=== PATIENT | male | born 1995 | race Hispanic/Latino ===

== ENCOUNTER 2018-11-13 09:36 | Emergency (ER) | payer OTHER ==
--- NOTE | 2018-11-13 10:29 | ER ---
Nurse's Notes [facility] Name: Hermelindo Driscoll Age: 23 yrs Sex: Male : 1995 Arrival Date: 11/13/2018 Time: 09:39 Bed 13 Private MD: Diagnosis: Abnormal results of liver function studies Presentation: 11/13 09:40 Presenting complaint: Mother states: "he just had some blood work this morning and they aa5 called us and said to come to the ER because there was something wrong with his pancreas". Pt denies any symptoms. 09:40 Transition of care: patient was not received from another setting of care. Onset of aa5 symptoms was November 13, 2018. Risk Assessment: Do you want to hurt yourself or someone else? Patient reports no desire to harm self or others. Initial Sepsis Screen: Does the patient meet any 2 criteria? No. Patient's initial sepsis screen is negative. Does the patient have a suspected source of infection? No. Patient's initial sepsis screen is negative. Care prior to arrival: None. 09:40 Method Of Arrival: Ambulatory aa5 09:40 Acuity: CHELY 3 aa5 09:45 Note Elevated results are: AST 246 and ALT 316, Hemoglobin A1C 11.2 (PA was notified aa5 and lab results were reviewed by PA). Historical: - Allergies: 09:42 No Known Allergies; aa5 - PMHx: 09:42 Diabetes - IDDM; aa5 - PSHx: 09:42 None; aa5 - Immunization history:: Flu vaccine is up to date. - Social history:: Smoking status: Patient/guardian denies using tobacco. - Ebola Screening: : No symptoms or risks identified at this time. Screenin:40 Abuse screen: Denies threats or abuse. Nutritional screening: No deficits noted. aa5 Tuberculosis screening: No symptoms or risk factors identified. Fall Risk None identified. Assessment: 09:40 General: Appears comfortable, Behavior is calm, cooperative. Pain: Denies pain. Neuro: aa5 Level of Consciousness is awake, alert, obeys commands, Oriented to person, place, time, situation. Cardiovascular: Heart tones S1 S2 present Rhythm is regular. Respiratory: Airway is patent Respiratory effort is even, unlabored, Respiratory pattern is regular, symmetrical. GI: Abdomen is flat, non-distended, Bowel sounds present X 4 quads. Abd is soft and non tender X 4 quads. Patient currently denies diarrhea, nausea, vomiting. : No signs and/or symptoms were reported regarding the genitourinary system. EENT: No signs and/or symptoms were reported regarding the EENT system. Derm: Skin is pink, warm \\T\\ dry. Musculoskeletal: Range of motion: intact in all extremities. Vital Signs: 09:42 BP 121 / 74; Pulse 69; Resp 18 S; Temp 98.8(O); Pulse Ox 100% on R/A; Weight 83.01 kg aa5 (R); Height 6 ft. 2 in. (187.96 cm) (R); Pain 0/10; 09:42 Body Mass Index 23.50 (83.01 kg, 187.96 cm) aa5 ED Course: 09:39 Patient arrived in ED. mr 09:40 Arm band placed on Patient placed in an exam room, on a stretcher. aa5 09:40 Patient has correct armband on for positive identification. Bed in low position. Call aa5 light in reach. Side rails up X 1. Adult w/ patient. 09:41 Pankaj Mattson PA is PHCP. cp 09:41 Charly Gil MD is Attending Physician. cp 09:45 Jacqui Gates, RN is Primary Nurse. aa5 09:46 Triage completed. aa5 10:20 No provider procedures requiring assistance completed. Patient did not have IV access aa5 during this emergency room visit. Administered Medications: No medications were administered Outcome: 10:28 Discharge ordered by . cp 10:28 Medical screen evaluation completed per provider. aa5 10:28 Condition: good 10:28 Discharge instructions given to patient, Instructed on discharge instructions, follow up and referral plans. Pt also educated about diabetes and glucose control and monitoring. 10:30 Patient left the ED. aa5 Signatures: Xiomara Franklin mr Jacqui Gates, RN RN aa5 Pankaj Mattson PA PA cp
--- NOTE | 2018-11-13 10:29 | EDPHYS ---
Physician Documentation [facility] Name: Hermelindo Driscoll Age: 23 yrs Sex: Male : 1995 Arrival Date: 11/13/2018 Time: 09:39 Bed 13 Private MD: ED Physician Charly Gil HPI: 11/13 09:59 This 23 yrs old Male presents to ER via Ambulatory with complaints of Abnormal cp Lab Results. 10:00 elevated liver enzymes. Onset: The symptoms/episode began/occurred at an unknown time. cp Patient had routine blood work drawn this morning and was told by lab to be seen in Ed for elevated liver enzymes. No complaints expressed by patient. Historical: - Allergies: 09:42 No Known Allergies; aa5 - PMHx: 09:42 Diabetes - IDDM; aa5 - PSHx: 09:42 None; aa5 - Immunization history:: Flu vaccine is up to date. - Social history:: Smoking status: Patient/guardian denies using tobacco. - Ebola Screening: : No symptoms or risks identified at this time. ROS: 10:01 All other systems are negative. cp Exam: 10:01 Head/Face: Normocephalic, atraumatic. cp 10:01 Constitutional: The patient appears in no acute distress, alert, awake, non-toxic, well developed, well nourished. 10:01 Eyes: Periorbital structures: appear normal, Conjunctiva: normal, no exudate, no injection, Sclera: no appreciated abnormality, Lids and lashes: appear normal, bilaterally. 10:01 ENT: External ear(s): are unremarkable, Nose: is normal, Mouth: is normal, Posterior pharynx: Airway: no evidence of obstruction, patent. 10:01 Chest/axilla: Inspection: normal, Palpation: is normal, no crepitus, no tenderness. 10:01 Cardiovascular: Rate: normal, Rhythm: regular. 10:01 Respiratory: the patient does not display signs of respiratory distress, Respirations: normal. 10:01 Abdomen/GI: Inspection: abdomen appears normal. Vital Signs: 09:42 BP 121 / 74; Pulse 69; Resp 18 S; Temp 98.8(O); Pulse Ox 100% on R/A; Weight 83.01 kg aa5 (R); Height 6 ft. 2 in. (187.96 cm) (R); Pain 0/10; 09:42 Body Mass Index 23.50 (83.01 kg, 187.96 cm) aa5 MDM: 09:53 Patient medically screened. cp 10:25 Differential Diagnosis hepatitis, cholecystitis. cp 10:27 Data reviewed: vital signs, nurses notes, lab results that were drawn today, I have cp discussed the patient's presentation/case with the attending Emergency Department Physician; and as a result, I will med screen patient. Administered Medications: No medications were administered Disposition: 10:35 Chart complete. cp 11:27 Co-signature as Attending Physician, Charly Gil MD I agree with the assessment and kdr plan of care. Disposition: 11/13/18 10:28 Discharged to Home as Medical Screen. Impression: Abnormal results of liver function studies. - Condition is Stable. - Medication Reconciliation Form, Thank You Letter, Antibiotic Education, Prescription Opioid Use form. - Follow up: Private Physician; When: Upon discharge from the Emergency Department; Reason: Recheck today's complaints. - Problem is new. - Symptoms are unchanged. Signatures: Charly Gil MD MD kdr Jacqui Gates RN RN aa5 Pankaj Mattson PA PA cp Corrections: (The following items were deleted from the chart) 10:30 10:28 11/13/2018 10:28 Discharged to Home as Medical Screen. Impression: Abnormal aa5 results of liver function studies. Condition is Stable. Forms are Medication Reconciliation Form, Thank You Letter, Antibiotic Education, Prescription Opioid Use. Follow up: Private Physician; When: Upon discharge from the Emergency Department; Reason: Recheck today's complaints. Problem is new. Symptoms are unchanged. cp
== END 2018-11-13 10:30 | disposition home or self-care (01) ==
LOC: ER 09:36
DX: R94.5 Abnormal results of liver function studies (principal)
CPT/HCPCS: 99281

== ENCOUNTER 2019-02-16 17:38 | Emergency (ER) | payer OTHER ==
[2019-02-16] MEDS ORDERED: D50W 25 GM/50 ML SYRINGE IV ONE ×2 (17:42→17:44)
[2019-02-16 18:05] LABS: Absolute Lymphocytes (CBC) 1.5 K/uL (0.7-4.9); Basophils % 0.4 % (0-1.3); Hematocrit 50.4 % (39.6-49.0); Lymphocytes % 13.2 % (15.3-44.8); MPV 9.2 fL (7.6-11.3); RBC Red Blood Cell Count 6.01 M/uL (4.33-5.43)
[2019-02-16] MEDS ORDERED: ONDANSETRON 4 MG/2 ML VIAL ONE (18:07)
[2019-02-16 18:31] LABS: ALT/SGPT 45 U/L (12-78); AST/SGOT 30 U/L (15-37); Albumin 4.3 g/dL (3.4-5.0); Alkaline Phosphatase 85 U/L (45-117); BUN Blood Urea Nitrogen 12 mg/dL (7-18); Bicarbonate 28 mmol/L (21-32); Bilirubin Total 0.4 mg/dL (0.2-1.0); Protein, Total 8.1 g/dL (6.4-8.2); Sodium Level 142 mmol/L (136-145)
[2019-02-16 18:33] LABS: Glucose Level 33 mg/dL (74-106); Potassium 2.8 mmol/L (3.5-5.1)
[2019-02-16 19:23] LABS: Urine Blood NEGATIVE (NEG); Urine Glucose TRACE (NEG); Urine Protein NEGATIVE (NEG)
--- NOTE | 2019-02-16 20:12 | ER ---
Nurse's Notes [facility] Name: Hermelindo Driscoll Age: 23 yrs Sex: Male : 1995 Arrival Date: 02/16/2019 Time: 17:39 Bed 4 Private MD: Diagnosis: Hypoglycemia, unspecified;Adverse effect of insulin and oral hypoglycemic [antidiabetic] drugs Presentation: 02/16 17:39 Presenting complaint: Family stated "I think his BS might be low.". Transition of care: sv patient was not received from another setting of care. Onset of symptoms was February 16, 2019. Risk Assessment: Do you want to hurt yourself or someone else? Patient reports no desire to harm self or others. Care prior to arrival: None. 17:39 Method Of Arrival: Wheelchair sv 17:39 Acuity: CHELY 1 sv 17:46 Initial Sepsis Screen: Does the patient meet any 2 criteria? No. Patient's initial hj sepsis screen is negative. Does the patient have a suspected source of infection? No. Patient's initial sepsis screen is negative. Triage Assessment: 17:39 General: Appears distressed, Behavior is unresponsive. Neuro: Level of Consciousness is sv unresponsive. Respiratory: Respiratory effort is unlabored, shallow. GI: vomitus noted on front shirt. 17:46 General: Appears in no apparent distress. uncomfortable, Behavior is appropriate for hj age, unresponsive. Pain: Denies pain. Historical: - Allergies: 20:12 No Known Allergies; lp1 - Home Meds: 20:12 Levemir 43 units subcutaneous in the morning [Active]; Levemir 5 units subcutaneous lp1 nightly [Active]; - PMHx: 17:46 Diabetes - IDDM; sv - Immunization history:: Adult Immunizations up to date. - Social history:: Smoking status: Patient/guardian denies using tobacco, Patient/guardian denies using alcohol. - Ebola Screening: : Patient negative for fever greater than or equal to 101.5 degrees Fahrenheit, and additional compatible Ebola Virus Disease symptoms Patient denies exposure to infectious person Patient denies travel to an Ebola-affected area in the 21 days before illness onset. Screenin:46 Abuse screen: Denies threats or abuse. Denies injuries from another. Nutritional hj screening: No deficits noted. Tuberculosis screening: No symptoms or risk factors identified. Fall Risk None identified. Assessment: 17:46 General: Appears uncomfortable, semi responsive, drooling. Behavior is unresponsive. hj 17:46 Pain: Denies pain. Neuro: Level of Consciousness is unresponsive. Cardiovascular: hj Capillary refill < 3 seconds Patient's skin is warm and dry. Respiratory: Airway is patent Respiratory effort is even, unlabored, Respiratory pattern is regular, symmetrical. GI: No signs and/or symptoms were reported involving the gastrointestinal system. : No signs and/or symptoms were reported regarding the genitourinary system. EENT: No signs and/or symptoms were reported regarding the EENT system. Derm: No signs and/or symptoms reported regarding the dermatologic system. Musculoskeletal: No signs and/or symptoms reported regarding the musculoskeletal system. 17:46 Reassessment: pt started to seize; MD in room with orders;. hj 18:00 Reassessment: after amp of D50, pt becomes responsive and become more awake;. hj 18:00 Reassessment: Patient and/or family updated on plan of care and expected duration. Pain hj level reassessed. Patient is alert, oriented x 3, equal unlabored respirations, skin warm/dry/pink. provide with tray and 2 cups of orange juice;. 18:25 Reassessment: Patient and/or family updated on plan of care and expected duration. Pain hj level reassessed. Patient is alert, oriented x 3, equal unlabored respirations, skin warm/dry/pink. pt is still eating with family; Patient states feeling better. Patient states symptoms have improved. 20:11 Reassessment: Patient is alert, oriented x 3, equal unlabored respirations, skin lp1 warm/dry/pink. Patient denies pain at this time. Patient states feeling better. Patient states symptoms have improved. Reassessment: Family at bedside. Neuro: Gait is steady. 20:44 Reassessment: Patient and/or family updated on plan of care and expected duration. Pain ea level reassessed. Patient is alert, oriented x 3, equal unlabored respirations, skin warm/dry/pink. Discharge instruction, no s/s of pain or discomfort noted at this time. Pt left ED ambulatory without assistance, pt tolerating well. Pt left with family Patient states feeling better. Vital Signs: 17:47 BP 126 / 74; Pulse 108; Resp 18; Temp 96.9(TE); Pulse Ox 100% on R/A; Weight 82.55 kg; hj Height 6 ft. 2 in. (187.96 cm); Pain 0/10; 18:25 BP 130 / 87; Pulse 82; Resp 18; Pulse Ox 100% on R/A; hj 18:34 BP 127 / 75; Pulse 71; Resp 18; Pulse Ox 100% on R/A; hj 20:23 BP 120 / 70; lp1 17:47 Body Mass Index 23.37 (82.55 kg, 187.96 cm) ED Course: 17:39 Patient arrived in ED. as 17:45 Initial lab(s) drawn, by pr, sent to lab. Inserted saline lock: 18 gauge in left hj forearm, using aseptic technique. Blood collected. 17:45 Inserted saline lock: 18 gauge in right forearm, using aseptic technique. Flushed right sv forearm with 5 ml normal saline. 17:46 Triage completed. sv 17:46 Arm band placed on left wrist. hj 17:47 Lars Noel MD is Attending Physician. ps1 17:48 Patient has correct armband on for positive identification. Bed in low position. Call light in reach. Side rails up X 1. Adult w/ patient. 17:52 Elvin Hoskins, RN is Primary Nurse. hj 17:57 CMP Sent. hj 17:57 CBC with Diff Sent. hj 20:11 No provider procedures requiring assistance completed. lp1 20:46 IV discontinued, intact, bleeding controlled, No redness/swelling at site. Pressure ea dressing applied. Administered Medications: 17:40 Drug: D50W 50 ml Route: IVP; Site: left forearm; rv 17:48 Follow up: Response: No adverse reaction; Blood sugar is elevated hj 18:09 Drug: D50W 25 ml Route: IVP; Site: left forearm; hj 18:09 Follow up: Response: No adverse reaction hj 18:10 Not Given ( changed order;): D50W 50 ml IVP once; (1 amp) hj 18:10 Drug: Zofran 4 mg Route: IVP; Site: left forearm; hj 18:10 Follow up: Response: No adverse reaction; Nausea is decreased Point of Care Testing: Blood Glucose: 17:45 Blood Glucose: 33 mg/dL; hj 18:15 Blood Glucose: 89 mg/dL; hj 18:24 Blood Glucose: 103 mg/dL; hj 20:10 Blood Glucose: 190 mg/dL; mw2 Ranges: Outcome: 20:12 Discharge ordered by . ps1 20:46 Discharged to home ambulatory, with family. ea 20:46 Condition: stable 20:46 Discharge instructions given to patient, Instructed on discharge instructions, follow up and referral plans. 20:48 Patient left the ED. ea Signatures: Ani Mckee RN RN Sandra Coley Laura, RN RN lp1 Elvin Hoskins RN RN hj Antunez, Elena RN Lars Gooden ea, MD MD ps1 Abisai Davis mw2 Abdoul Boone, RN RN rv Corrections: (The following items were deleted from the chart) 17:57 17:41 D50W 50 ml IVP in left forearm [facility] 17:57 17:53 Response: No adverse reaction [facility]
--- NOTE | 2019-02-16 20:13 | EDPHYS ---
Physician Documentation [facility] Name: Hermelindo Driscoll Age: 23 yrs Sex: Male : 1995 Arrival Date: 02/16/2019 Time: 17:39 Bed 4 Private MD: ED Physician Lars Noel HPI: 02/16 17:53 This 23 yrs old Male presents to ER via Wheelchair with complaints of Low ps1 Blood Sugar. 17:53 Pt is IDDM and took insulin prior to eating. Patient presented unresponsive to triage ps1 and was given D50 immediately. Pt became alert. Did not remember event. Episode of vomiting [employer]. Clonic activity for 1 minute prior to glucose administration. Stopped after. . Historical: - Allergies: 20:12 No Known Allergies; lp1 - Home Meds: 20:12 Levemir 43 units subcutaneous in the morning [Active]; Levemir 5 units subcutaneous lp1 nightly [Active]; - PMHx: 17:46 Diabetes - IDDM; sv - Immunization history:: Adult Immunizations up to date. - Social history:: Smoking status: Patient/guardian denies using tobacco, Patient/guardian denies using alcohol. - Ebola Screening: : Patient negative for fever greater than or equal to 101.5 degrees Fahrenheit, and additional compatible Ebola Virus Disease symptoms Patient denies exposure to infectious person Patient denies travel to an Ebola-affected area in the 21 days before illness onset. ROS: 17:53 Unable to obtain ROS due to obtunded state. ps1 Exam: 17:53 Head/Face: Normocephalic, atraumatic. Eyes: Pupils equal round and reactive to light, ps1 extra-ocular motions intact. Lids and lashes normal. Conjunctiva and sclera are non-icteric and not injected. Chest/axilla: Normal chest wall appearance and motion. Nontender with no deformity. No lesions are appreciated. Cardiovascular: Regular rate and rhythm. No gallops, murmurs, or rubs. Normal PMI, no JVD. No pulse deficits. Respiratory: Lungs have equal breath sounds bilaterally, clear to auscultation and percussion. No rales, rhonchi or wheezes noted. No increased work of breathing, no retractions or nasal flaring. Abdomen/GI: Soft, non-tender, with normal bowel sounds. No distension or tympany. No guarding or rebound. No evidence of tenderness throughout. Skin: Warm, dry with normal turgor. Normal color with no rashes, no lesions, and no evidence of cellulitis. MS/ Extremity: Pulses equal, no cyanosis. Neurovascular intact. Full, normal range of motion. 17:53 Constitutional: The patient appears listless. 17:53 Neuro: Orientation: to Not oriented to person, place, time, situation, improved after D50. Alert and oriented.. Vital Signs: 17:47 BP 126 / 74; Pulse 108; Resp 18; Temp 96.9(TE); Pulse Ox 100% on R/A; Weight 82.55 kg; hj Height 6 ft. 2 in. (187.96 cm); Pain 0/10; 18:25 BP 130 / 87; Pulse 82; Resp 18; Pulse Ox 100% on R/A; hj 18:34 BP 127 / 75; Pulse 71; Resp 18; Pulse Ox 100% on R/A; hj 20:23 BP 120 / 70; lp1 17:47 Body Mass Index 23.37 (82.55 kg, 187.96 cm) hj MDM: 17:58 Patient medically screened. ps1 20:10 Data reviewed: vital signs, nurses notes, and as a result, I will discharge patient. ps1 Counseling: I had a detailed discussion with the patient and/or guardian regarding: the historical points, exam findings, and any diagnostic results supporting the discharge/admit diagnosis, lab results, the need for outpatient follow up, for definitive care. Counseling: I had a detailed discussion with the patient and/or guardian regarding: to return to the emergency department if symptoms worsen or persist or if there are any questions or concerns that arise at home. Response to treatment: the patient's symptoms have markedly improved after treatment, the patient's condition has returned to base line. 02/16 17:46 Order name: glucometer results - FOR PT WITH NO ID; Complete Time: 17:52 sv 02/16 17:53 Order name: CBC with Diff; Complete Time: 18:50 ps1 02/16 17:53 Order name: CMP; Complete Time: 18:50 ps1 02/16 18:07 Order name: Glucose, Ancillary Testing; Complete Time: 18:50 EDMS 02/16 18:25 Order name: Glucose, Ancillary Testing; Complete Time: 18:50 EDVA 02/16 19:02 Order name: Urine Dipstick--Ancillary (enter results); Complete Time: 20:03 ag4 02/16 17:44 Order name: Diet Regular; Complete Time: 17:45 rv 02/16 17:53 Order name: Urine Dipstick-Ancillary (obtain specimen); Complete Time: 18:53 ps1 Administered Medications: 17:40 Drug: D50W 50 ml Route: IVP; Site: left forearm; rv 17:48 Follow up: Response: No adverse reaction; Blood sugar is elevated hj 18:09 Drug: D50W 25 ml Route: IVP; Site: left forearm; hj 18:09 Follow up: Response: No adverse reaction hj 18:10 Not Given ( changed order;): D50W 50 ml IVP once; (1 amp) hj 18:10 Drug: Zofran 4 mg Route: IVP; Site: left forearm; hj 18:10 Follow up: Response: No adverse reaction; Nausea is decreased Point of Care Testing: Blood Glucose: 17:45 Blood Glucose: 33 mg/dL; hj 18:15 Blood Glucose: 89 mg/dL; hj 18:24 Blood Glucose: 103 mg/dL; hj 20:10 Blood Glucose: 190 mg/dL; mw2 Ranges: Critical Glucose Levels:Adult <50 mg/dl or >400 mg/dl <40 mg/dl or >180 mg/dl Disposition: 20:12 Chart complete. ps1 Disposition: 02/16/19 20:12 Discharged to Home. Impression: Hypoglycemia, unspecified, Adverse effect of insulin and oral hypoglycemic [antidiabetic] drugs. - Condition is Stable. - Discharge Instructions: Hypoglycemia. - Medication Reconciliation Form, Thank You Letter, Antibiotic Education, Prescription Opioid Use form. - Follow up: Private Physician; When: 48 Hours; Reason: Further diagnostic work-up, Continuance of care, Re-evaluation by your physician. Follow up: Emergency Department; When: As needed; Reason: Worsening of condition. - Problem is new. - Symptoms are resolved. Signatures: Dispatcher [employer] [facility] Ani Mckee RN RN sv Pena, Laura, RN RN lp1 Elvin Hoskins RN RN hj Selena Wilson RN RN ea Singer, Phillip, MD MD ps1 Paolo, Abdoul, RN RN rv Corrections: (The following items were deleted from the chart) 20:48 20:12 02/16/2019 20:12 Discharged to Home. Impression: Hypoglycemia, unspecified; ea Adverse effect of insulin and oral hypoglycemic [antidiabetic] drugs. Condition is Stable. Forms are Medication Reconciliation Form, Thank You Letter, Antibiotic Education, Prescription Opioid Use. Follow up: Private Physician; When: 48 Hours; Reason: Further diagnostic work-up, Continuance of care, Re-evaluation by your physician. Follow up: Emergency Department; When: As needed; Reason: Worsening of condition. Problem is new. Symptoms are resolved. ps1
== END 2019-02-16 20:48 | disposition home or self-care (01) ==
LOC: ER 17:38
DX: E11.649 Type 2 diabetes mellitus with hypoglycemia without coma (principal); Z79.4 Long term (current) use of insulin
CPT/HCPCS: 85025; 36415; 82962 ×4; 81003; 80053; 96375; 96374; 99291; 99292; J2405

== ENCOUNTER 2020-02-03 10:43 | Inpatient (IN) | payer OTHER ==
[2020-02-03 12:00] LABS: Absolute Lymphocytes (CBC) 2.1 K/uL (0.7-4.9); Basophils % 0.6 % (0-1.3); Hematocrit 49.1 % (39.6-49.0); Lymphocytes % 27.7 % (15.3-44.8); MPV 10.4 fL (7.6-11.3); RBC Red Blood Cell Count 5.93 M/uL (4.33-5.43)
[2020-02-03] MEDS ORDERED: MORPHINE 2 MG/ML SYR ONE (12:25)
[2020-02-03] MEDS ORDERED: ONDANSETRON 4 MG/2 ML VIAL ONE (12:25)
[2020-02-03 12:28] LABS: ALT/SGPT 36 U/L (12-78); AST/SGOT 20 U/L (15-37); Albumin 4.3 g/dL (3.4-5.0); Alkaline Phosphatase 93 U/L (45-117); BUN Blood Urea Nitrogen 17 mg/dL (7-18); Bicarbonate 18 mmol/L (21-32); Bilirubin Direct 0.2 mg/dL (0-0.2); Bilirubin Total 0.7 mg/dL (0.2-1.0); Glucose Level 341 mg/dL (74-106); Magnesium 1.7 mg/dL (1.8-2.4); Potassium 3.6 mmol/L (3.5-5.1); Protein, Total 7.6 g/dL (6.4-8.2); Sodium Level 135 mmol/L (136-145); Troponin (Emerg Dept Use Only) < 0.02 ng/mL (0.0-0.045)
--- NOTE | 2020-02-03 12:37 | RAD REPORT ---
EXAM DESCRIPTION: RAD - Chest Single View - 02/03/2020 12:06 pm CLINICAL HISTORY: CHEST PAIN COMPARISON: None TECHNIQUE: AP portable chest image was obtained 02/03/2020 12:06 pm . FINDINGS: Lungs are clear. Heart and vasculature are normal. No measurable pleural effusion and no p neumothorax. No acute bony abnormality seen. No acute aortic findings suspected. IMPRESSION: No acute cardiopulmonary process.
--- NOTE | 2020-02-03 13:52 | ER ---
Nurse's Notes [facility] Name: Hermelindo Driscoll Age: 24 yrs Sex: Male : 1995 Arrival Date: 02/03/2020 Time: 10:44 Bed 14 Private MD: Diagnosis: Diabetes mellitus due to underlying condition with ketoacidosis Presentation: 02/02 11:06 Chief complaint: Patient states: midsternal chest pain started about an hour ago, feels iw like pressure, constant, no vomiting , was lying in the bed when it started , denies cough, SOB or fever. Coronavirus screen: At this time, the client does not indicate any symptoms associated with coronavirus-19. Ebola Screen: Patient negative for fever greater than or equal to 101.5 degrees Fahrenheit, and additional compatible Ebola Virus Disease symptoms Patient denies exposure to infectious person. Patient denies travel to an Ebola-affected area in the 21 days before illness onset. No symptoms or risks identified at this time. Initial Sepsis Screen: Does the patient meet any 2 criteria? No. Patient's initial sepsis screen is negative. Does the patient have a suspected source of infection? No. Patient's initial sepsis screen is negative. Risk Assessment: Do you want to hurt yourself or someone else? Patient reports no desire to harm self or others. Onset of symptoms was February 03, 2020. 11:06 Method Of Arrival: Wheelchair iw 11:06 Acuity: CHELY 3 iw Historical: - Allergies: 11:09 No Known Allergies; iw - Home Meds: 11:09 Toujeo SoloStar 300 unit/mL (1.5 mL) subcutaneous inpn [Active]; iw - PMHx: 11:09 Diabetes - IDDM; iw - PSHx: 11:09 None; iw - Social history:: Smoking status: . Screenin:50 Abuse screen: Denies threats or abuse. Denies injuries from another. Nutritional jr10 screening: No deficits noted. Tuberculosis screening: No symptoms or risk factors identified. Fall Risk IV access (20 points). Assessment: 11:50 General: Appears in no apparent distress. Behavior is anxious, restless. Pain: jr10 Complains of pain in chest Pain does not radiate. Pain began this morning. Neuro: No deficits noted. Level of Consciousness is awake, alert, obeys commands, Oriented to person, place, time, situation, Appropriate for age Speech is normal. Cardiovascular: Reports chest pain, shortness of breath, Denies diaphoresis, nausea, vomiting, Capillary refill < 3 seconds Pulses are all present. Edema is absent. Rhythm is. Respiratory: Respiratory effort is even, unlabored, Respiratory pattern is regular, symmetrical, Breath sounds are clear bilaterally. GI: No deficits noted. No signs and/or symptoms were reported involving the gastrointestinal system. : No deficits noted. No signs and/or symptoms were reported regarding the genitourinary system. EENT: No deficits noted. No signs and/or symptoms were reported regarding the EENT system. Derm: No deficits noted. No signs and/or symptoms reported regarding the dermatologic system. Musculoskeletal: No deficits noted. No signs and/or symptoms reported regarding the musculoskeletal system. 13:08 Reassessment: respiratory at bedside for ABG. jr10 18:30 Reassessment: Patient and/or family updated on plan of care and expected duration. Pain jr10 level reassessed. Patient is alert, oriented x 3, equal unlabored respirations, skin warm/dry/pink. Insulin drip d/c per verbal order Dr Gordon, will await new orders. 19:00 Reassessment: Assumed care of patient from ANNALISA Hernandez. vc 19:08 Reassessment: Patient appears in no apparent distress at this time. Patient and/or vc family updated on plan of care and expected duration. Pain level reassessed. 20:17 Reassessment: Patient appears in no apparent distress at this time. No changes from vc previously documented assessment. Attempted to call report to second floor, receiving nurse to call back. 20:57 Reassessment: Attempted to give report to second floor, will attempt again. vc 21:28 Reassessment: Attempted to call report to second floor, no one answered, will call back.vc 21:38 Reassessment: Patient appears in no apparent distress at this time. Patient and/or vc family updated on plan of care and expected duration. Pain level reassessed. Patient is alert, oriented x 3, equal unlabored respirations, skin warm/dry/pink. Vital Signs: 11:06 BP 126 / 89; Pulse 90; Resp 16; Temp 98.1; Pulse Ox 100% on R/A; Weight 72.57 kg; iw Height 6 ft. 1 in. (185.42 cm); Pain 9/10; 12:25 BP 107 / 49; Pulse 73; Resp 20; Pulse Ox 100% on R/A; Pain 3/10; jr10 13:30 BP 106 / 60; Pulse 73; Resp 18; Pulse Ox 98% on R/A; jr10 14:30 BP 104 / 58; Pulse 74; Resp 20; Pulse Ox 99% ; jr10 16:00 BP 98 / 46; Pulse 85; Resp 18; Pulse Ox 100% ; jr10 17:30 BP 99 / 61; Pulse 84; Resp 18; Pulse Ox 100% ; jr10 19:06 BP 94 / 56; Pulse 65; Resp 11; Pulse Ox 100% on R/A; vc 20:18 BP 91 / 65; Pulse 72; Resp 12; Pulse Ox 100% on R/A; vc 11:06 Body Mass Index 21.11 (72.57 kg, 185.42 cm) iw ED Course: 10:44 Patient arrived in ED. ds1 11:08 Triage completed. iw 11:09 Arm band placed on. iw 11:17 Nori Powell FNP-C is PHCP. kb 11:17 Charly Gil MD is Attending Physician. kb 11:27 Mary Franklin RN is Primary Nurse. jr10 11:49 Inserted saline lock: 20 gauge in right forearm, using aseptic technique. IV is patent, jr10 is intact, with good blood return, Flushed. 11:50 Patient has correct armband on for positive identification. Bed in low position. Call jr10 light in reach. Side rails up X2. shelter monitor on. Pulse ox on. NIBP on. 12:07 XRAY Chest (1 view) In Process Unspecified. EDMS 13:50 Aleksandr Gordon is Hospitalizing Provider. kb 18:35 No provider procedures requiring assistance completed. Patient maintains SpO2 jr10 saturation greater than 95% on room air. 21:37 Patient admitted, IV remains in place. vc Administered Medications: Discontinued: Insulin Drip - (Insulin Regular Human 100 units, NS 0.9% 100 ml) IV at calculated rate continuous; Standard concentration 1unit/ml; Dose for DKA is 0.1 units/kg/hr 12:03 Drug: morphine 2 mg Route: IVP; Site: right forearm; jr10 12:56 Follow up: Response: No adverse reaction; Pain is decreased jr10 12:20 Drug: Zofran (Ondansetron) 4 mg Route: IVP; Site: right forearm; jr10 12:56 Follow up: Response: No adverse reaction jr10 14:15 Drug: NS 0.9% 1000 ml Route: IV; Rate: 1000 ml; Site: right forearm; jr10 15:32 Follow up: Response: No adverse reaction; IV Status: Completed infusion jr10 14:15 Drug: NS 0.9% 1000 ml Route: IV; Rate: 1000 ml; Site: right forearm; jr10 16:13 Follow up: Response: No adverse reaction; IV Status: Completed infusion jr10 16:11 Drug: Insulin Drip - (Insulin Regular Human 100 units, NS 0.9% 100 ml) {Co-Signature: rosa centeno (Go Madrigal RN).} Route: IV; Rate: calculated rate; Site: right forearm; Outcome: 13:51 Decision to Hospitalize by Provider. kb 21:37 Admitted to Med/surg accompanied by tech, via wheelchair, room 222. vc 21:37 Condition: good 21:37 Instructed on the need for admit. 22:45 Patient left the ED. vc Signatures: Dispatcher [employer] Nori Ngo, IAP DISPLAYS ANALYST-C IAP DISPLAYS ANALYST-Stella Acosta ds1 Laura Diallo, RN ANNALISA iw Radha Sprague RN Mary Macdonald vc, RN ANNALISA jrAaron Madrigal RN em Corrections: (The following items were deleted from the chart) 11:08 11:06 Chief complaint: Patient states: midsternal chest pain started about an hour ago, iw feels like pressure, constant, no vomiting , was lying in the bed when it started iw 11:09 11:06 Pulse 90bpm; Resp 16bpm; Pulse Ox 100% RA; Temp 98.1F; 72.57 kg; Height 6 ft. 1 iw in.; BMI: 21.1; Pain 9/10; iw
--- NOTE | 2020-02-03 13:52 | EDPHYS ---
Physician Documentation [facility] Name: Hermelindo Driscoll Age: 24 yrs Sex: Male : 1995 Arrival Date: 02/03/2020 Time: 10:44 Bed 14 Private MD: ED Physician Charly Gil HPI: 02/02 14:16 This 24 yrs old Male presents to ER via Wheelchair with complaints of Chest kb Pain. 14:17 The patient or guardian reports chest pain that is located primarily in the substernal kb area. The pain radiates to both arms. Associated signs and symptoms: Pertinent positives: nausea, Pertinent negatives: abdominal pain, cough, diaphoresis, dizziness, headache, lower extremity pain, lower extremity swelling, lightheadedness, near syncope, palpitations, recent travel, shortness of breath, syncope, vomiting. The chest pain is described as a heaviness. Duration: The patient or guardian reports a single episode, that is still ongoing. Modifying factors: The symptoms are alleviated by nothing. the symptoms are aggravated by nothing. Severity of pain: At its worst the pain was moderate in the emergency department the pain is unchanged. The patient has not experienced similar symptoms in the past. The patient has not recently seen a physician. Historical: - Allergies: 11:09 No Known Allergies; iw - Home Meds: 11:09 Toujeo SoloStar 300 unit/mL (1.5 mL) subcutaneous inpn [Active]; iw - PMHx: 11:09 Diabetes - IDDM; iw - PSHx: 11:09 None; iw - Social history:: Smoking status: . ROS: 14:16 Constitutional: Negative for fever, chills, and weight loss, Respiratory: Negative for kb shortness of breath, cough, wheezing, and pleuritic chest pain, Abdomen/GI: Negative for abdominal pain, nausea, vomiting, diarrhea, and constipation, Back: Negative for injury and pain, MS/Extremity: Negative for injury and deformity, Skin: Negative for injury, rash, and discoloration, Neuro: Negative for headache, weakness, numbness, tingling, and seizure. 14:16 Cardiovascular: Positive for chest pain, Negative for edema, orthopnea, palpitations, paroxysmal nocturnal dyspnea. Exam: 11:36 Constitutional: This is a well developed, well nourished patient who is awake, alert, kb and in no acute distress. Head/Face: Normocephalic, atraumatic. Chest/axilla: Normal chest wall appearance and motion. Nontender with no deformity. No lesions are appreciated. Cardiovascular: Regular rate and rhythm with a normal S1 and S2. No gallops, murmurs, or rubs. Normal PMI, no JVD. No pulse deficits. Respiratory: Lungs have equal breath sounds bilaterally, clear to auscultation and percussion. No rales, rhonchi or wheezes noted. No increased work of breathing, no retractions or nasal flaring. Abdomen/GI: Soft, non-tender, with normal bowel sounds. No distension or tympany. No guarding or rebound. No evidence of tenderness throughout. Back: No spinal tenderness. No costovertebral tenderness. Full range of motion. Skin: Warm, dry with normal turgor. Normal color with no rashes, no lesions, and no evidence of cellulitis. MS/ Extremity: Pulses equal, no cyanosis. Neurovascular intact. Full, normal range of motion. Neuro: Awake and alert, GCS 15, oriented to person, place, time, and situation. Cranial nerves II-XII grossly intact. Motor strength 5/5 in all extremities. Sensory grossly intact. Cerebellar exam normal. Normal gait. 11:36 ECG was reviewed by the Attending Physician. Vital Signs: 11:06 BP 126 / 89; Pulse 90; Resp 16; Temp 98.1; Pulse Ox 100% on R/A; Weight 72.57 kg; iw Height 6 ft. 1 in. (185.42 cm); Pain 9/10; 12:25 BP 107 / 49; Pulse 73; Resp 20; Pulse Ox 100% on R/A; Pain 3/10; jr10 13:30 BP 106 / 60; Pulse 73; Resp 18; Pulse Ox 98% on R/A; jr10 14:30 BP 104 / 58; Pulse 74; Resp 20; Pulse Ox 99% ; jr10 16:00 BP 98 / 46; Pulse 85; Resp 18; Pulse Ox 100% ; jr10 17:30 BP 99 / 61; Pulse 84; Resp 18; Pulse Ox 100% ; jr10 19:06 BP 94 / 56; Pulse 65; Resp 11; Pulse Ox 100% on R/A; vc 20:18 BP 91 / 65; Pulse 72; Resp 12; Pulse Ox 100% on R/A; vc 11:06 Body Mass Index 21.11 (72.57 kg, 185.42 cm) iw MDM: 11:17 Patient medically screened. kb 13:49 Data reviewed: vital signs, nurses notes. Data interpreted: Pulse oximetry: on room air kb is 100 %. Interpretation: normal. Counseling: I had a detailed discussion with the patient and/or guardian regarding: the historical points, exam findings, and any diagnostic results supporting the discharge/admit diagnosis, lab results, radiology results, the need for further work-up and treatment in the hospital. Physician consultation: Aleksandr Gordon was contacted at 13:50, regarding admission, to the ICU, patient's condition, and will see patient in ED, shortly. 02/02 11:27 Order name: Basic Metabolic Panel; Complete Time: 12:45 kb 02/02 11:27 Order name: CBC with Diff; Complete Time: 12:05 kb 02/02 11:27 Order name: LFT's; Complete Time: 12:45 kb 02/02 11:27 Order name: Magnesium; Complete Time: 12:45 kb 02/02 11:27 Order name: Troponin (emerg Dept Use Only); Complete Time: 12:45 kb 02/02 11:35 Order name: Glucose, Ancillary Testing; Complete Time: 11:36 EDMS 02/02 11:27 Order name: XRAY Chest (1 view); Complete Time: 12:45 kb 02/02 12:46 Order name: ABG; Complete Time: 14:11 kb 02/02 12:46 Order name: Acetone, Serum; Complete Time: 21:52 kb 02/02 15:41 Order name: Glucose, Ancillary Testing; Complete Time: 15:54 EDMS 02/02 16:05 Order name: Basic Metabolic Panel; Complete Time: 21:52 EDMS 02/02 17:36 Order name: Glucose, Ancillary Testing; Complete Time: 21:52 EDMS 02/02 11:22 Order name: Blood Glucose Level; Complete Time: 11:27 kb 02/02 11:27 Order name: EKG; Complete Time: 11:29 kb 02/02 11:27 Order name: Cardiac monitoring; Complete Time: 11:27 kb 02/02 11:27 Order name: EKG - Nurse/Tech; Complete Time: 11:27 kb 02/02 11:27 Order name: IV Saline Lock; Complete Time: 11:48 kb 02/02 11:27 Order name: Labs collected and sent; Complete Time: 11:48 kb 02/02 11:27 Order name: O2 Per Protocol; Complete Time: 11:49 kb 02/02 11:27 Order name: O2 Sat Monitoring; Complete Time: 11:49 kb EC:36 Rate is 78 beats/min. Rhythm is regular. QRS [place] is Normal. UT interval is normal at kb 148 msec. QRS interval is normal at 90 msec. QT interval is normal at 406 msec. Administered Medications: Discontinued: Insulin Drip - (Insulin Regular Human 100 units, NS 0.9% 100 ml) IV at calculated rate continuous; Standard concentration 1unit/ml; Dose for DKA is 0.1 units/kg/hr 12:03 Drug: morphine 2 mg Route: IVP; Site: right forearm; jr10 12:56 Follow up: Response: No adverse reaction; Pain is decreased jr10 12:20 Drug: Zofran (Ondansetron) 4 mg Route: IVP; Site: right forearm; jr10 12:56 Follow up: Response: No adverse reaction jr10 14:15 Drug: NS 0.9% 1000 ml Route: IV; Rate: 1000 ml; Site: right forearm; jr10 15:32 Follow up: Response: No adverse reaction; IV Status: Completed infusion jr10 14:15 Drug: NS 0.9% 1000 ml Route: IV; Rate: 1000 ml; Site: right forearm; jr10 16:13 Follow up: Response: No adverse reaction; IV Status: Completed infusion jr10 16:11 Drug: Insulin Drip - (Insulin Regular Human 100 units, NS 0.9% 100 ml) {Co-Signature: jr10 jacobo (Go Madrigal RN).} Route: IV; Rate: calculated rate; Site: right forearm; Disposition: 02/03 09:00 Co-signature as Attending Physician, Charly Gil MD I agree with the assessment and kdr plan of care. Disposition: 02/03/20 13:51 Hospitalization ordered by Aleksandr Gordon for Inpatient Admission. Preliminary diagnosis is Diabetes mellitus due to underlying condition with ketoacidosis. - Bed requested for Telemetry/MedSurg (Inpatient). - Status is Inpatient Admission. vc - Condition is Stable. - Problem is new. - Symptoms are unchanged. Signatures: Dispatcher [employer] EDMT Nori Powell, COFFEE SOMMELIER-C COFFEE SOMMELIER-Ckb Jillian Cruz, RN RN Charly Mcdonough MD MD [facility] Laura Diallo RN RN iw Tosin Maximino, COFFEE SOMMELIER-C COFFEE SOMMELIER-Cla1 Radha Sprague RN RN Mary Franklin, RN RN jr10 Go Madrigal RN em Corrections: (The following items were deleted from the chart) 02/02 17:27 13:51 [facility]. Preliminary kl diagnosis is Diabetes mellitus due to underlying condition with ketoacidosis. Bed requested for Telemetry/MedSurg (Inpatient). Status is Inpatient Admission. Condition is Stable. Problem is new. Symptoms are unchanged. kb 17:33 17:27 02/03/2020 13:51 Hospitalization Ordered by [facility] for Inpatient kl Admission. Preliminary diagnosis is Diabetes mellitus due to underlying condition with ketoacidosis. Bed requested for Telemetry/MedSurg (Inpatient). Status is Inpatient Admission. Condition is Stable. Problem is new. Symptoms are unchanged. kl 18:40 17:33 02/03/2020 13:51 Hospitalization Ordered by [facility] for Inpatient kl Admission. Preliminary diagnosis is Diabetes mellitus due to underlying condition with ketoacidosis. Bed requested for Intensive Care Unit. Status is Inpatient Admission. Condition is Stable. Problem is new. Symptoms are unchanged. kl 22:45 18:40 02/03/2020 13:51 Hospitalization Ordered by [facility] for Inpatient vc Admission. Preliminary diagnosis is Diabetes mellitus due to underlying condition with ketoacidosis. Bed requested for Telemetry/MedSurg (Inpatient). Status is Inpatient Admission. Condition is Stable. Problem is new. Symptoms are unchanged. kl
[2020-02-03 14:06] LABS: Arterial Blood Carboxyhemoglob 1.2 % (0-1.5); Blood Gas Oxyhemoglobin 94.9 % (94-97); Blood O2 Saturation 96.9 % (92-98.5)
[2020-02-03] MEDS ORDERED: NA CHLORIDE 0.9% 2,000 ML ONE (14:23)
[2020-02-03] MEDS ORDERED: INSULIN -REGULAR HUMAN 100 UNIT in NA CHLORIDE 0.9% 100 ML IV SCH (15:00)
[2020-02-03] MEDS ORDERED: INSULIN -REGULAR HUMAN 50 UNIT/0.5 ML ML ONE (16:01)
--- NOTE | 2020-02-03 16:11 | P.HP ---
Certification for Inpatient Patient admitted to: Observation With expected LOS: <2 Midnights Practitioner: I am a practitioner with admitting privileges, knowledge of patient current condition, hospital course, and medical plan of care. Services: Services provided to patient in accordance with Admission requirements found in Title 42 Section 412.3 of the Code of Federal Regulations Patient History Date of Service: 02/03/20 Reason for admission: DKA History of Present Illness: 24-year-old gentleman with a history of type 1 diabetes presented to the emergency department with a complaint of chest pain of onset today. Chest pain had resolved by the time I saw him in the ED for examination. Initial troponin is negative. EKG did not show any ischemic changes. Patient found to have hyperglycemia with glucose level of 341. Blood chemistry showing mild metabolic acidosis with bicarb of 18 and a mild anion gap. Patient does not look sick and currently has no complain. He stated he misses insulin doses from yesterday. Patient started on IV hydration given a dose of IV insulin. I dont think he has full blown DKA. Will hospitalize for monitoring. Allergies No Known Allergies Allergy (Unverified 02/03/20 14:14) - Past Medical/Surgical History -: Diabetes mellitus type 1 -: None - Family History Family History: Reviewed- Non-Contributory - Social History Alcohol use: No CD- Drugs: No Place of Residence: Home Review of Systems Other: Except as documented, all other systems reviewed and negative. Physical Examination - Physical Exam General: Alert, In no apparent distress, Oriented x3 HEENT: Mucous membr. moist/pink, EOMI, Sclerae nonicteric Neck: Supple, JVD not distended Respiratory: Clear to auscultation bilaterally, Normal air movement Cardiovascular: No edema, Regular rate/rhythm, Normal S1 S2 Capillary refill: <2 Seconds Gastrointestinal: Normal bowel sounds, Soft and benign, Non-distended, No tenderness Musculoskeletal: No swelling, No erythema Integumentary: No rashes, No erythema Neurological: Normal strength at 5/5 x4 extr, Cranial nerves 3-12 intact - Studies Laboratory Data (last 24 hrs) 02/03/20 11:45: WBC 7.7, Hgb 16.6, Hct 49.1 H, Plt Count 141 L 02/03/20 11:45: Sodium 135 L, Potassium 3.6, BUN 17, Creatinine 1.08, Glucose 341 H, Magnesium 1.7 L, Total Bilirubin 0.7, AST 20, ALT 36, Alkaline Phosphatase 93 Assessment and Plan - Problems (Diagnosis) (1) Diabetes mellitus with hyperglycemia Current Visit: Yes Status: Acute - Plan Give a dose of IV insulin, recheck blood sugar. Hydrate with IV normal saline. Patient given 2 L bolus of normal saline in the ED. Will start aggressive IV hydration. Recheck BMP in 4 hours. Will discharge home once serum bicarb level remain stable or improve. Otherwise will admit for DKA if AG increase. - Advance Directives Does patient have a Living Will: No Does patient have a Durable POA for Healthcare: No
[2020-02-03 18:32] LABS: BUN Blood Urea Nitrogen 17 mg/dL (7-18); Bicarbonate 18 mmol/L (21-32); Glucose Level 234 mg/dL (74-106); Potassium 4.1 mmol/L (3.5-5.1); Sodium Level 139 mmol/L (136-145)
[2020-02-03] MEDS ORDERED: ONDANSETRON 4 MG/2 ML VIAL IV PRN (21:57)
[2020-02-03] MEDS ORDERED: D50W 25 GM/50 ML SYRINGE/VIAL IV PRN (21:57)
[2020-02-03] MEDS ORDERED: GLUCAGON 1 MG/VIAL IM PRN (21:57)
[2020-02-03 22:53] LABS: BUN Blood Urea Nitrogen 16 mg/dL (7-18); Bicarbonate 16 mmol/L (21-32); Glucose Level 271 mg/dL (74-106); Potassium 4.4 mmol/L (3.5-5.1); Sodium Level 138 mmol/L (136-145); Troponin I < 0.02 ng/mL (0.0-0.045)
[2020-02-03] MEDS: NA CHLORIDE 0.9% 1,000 ML IV SCH (22:55)
[2020-02-04] MEDS ORDERED: GLUCAGON 1 MG/VIAL IM PRN (01:48)
[2020-02-04] MEDS ORDERED: D50W 25 GM/50 ML SYRINGE/VIAL IV PRN (01:48)
[2020-02-04 03:43] LABS: Absolute Lymphocytes (CBC) 1.2 K/uL (0.7-4.9); Basophils % 0.1 % (0-1.3); Hematocrit 42.8 % (39.6-49.0); Lymphocytes % 7.1 % (15.3-44.8); MPV 10.7 fL (7.6-11.3); RBC Red Blood Cell Count 5.15 M/uL (4.33-5.43)
[2020-02-04 04:08] LABS: Magnesium 1.6 mg/dL (1.8-2.4); Phosphorus 4.4 mg/dL (2.5-4.9); Potassium 4.6 mmol/L (3.5-5.1)
[2020-02-04] MEDS: NA CHLORIDE 0.9% 1,000 ML IV SCH ×5 (04:43→15:54)
[2020-02-04 04:53] LABS: Blood Morphology Comment NOT SEEN (NOT SEEN); Platelet Estimate ADEQ
[2020-02-04] MEDS ORDERED: INSULIN -REGULAR HUMAN 50 UNIT/0.5 ML ML SQ SCH (07:30)
[2020-02-04] MEDS ORDERED: INSULIN -REGULAR HUMAN 100 UNIT in NA CHLORIDE 0.9% 100 ML IV SCH (08:00)
[2020-02-04] MEDS ORDERED: INSULIN GLARGINE 100 UNITS/ML SQ SCH ×2 (08:00→21:00)
[2020-02-04] MEDS ORDERED: MAGNESIUM SULFATE 1 gm IVPB 1 GM/100 ML BAG IV ONE (08:00)
[2020-02-04] MEDS: D5 0.45 NS 1,000 ML IV SCH ×2 (08:00→14:40)
--- NOTE | 2020-02-04 08:42 | EKG ---
Test Date: 2020-02-03 Test Time: 11:21:33 Subpoena Server: [employer] MEASUREMENT RESULTS: Intervals: Rate: 78 AL: 148 QRSD: 90 QT: 406 QTc: 462 Deweese: P: 66 AL: 148 QRS: 61 T: 60 INTERPRETIVE STATEMENTS: Normal sinus rhythm Possible Left atrial enlargement Borderline ECG No previous ECG available for comparison Electronically Signed On 02-04-20 08:38:34 CDT by Dio Giordano
[2020-02-04 09:25] LABS: Potassium 4.6 mmol/L (3.5-5.1)
[2020-02-04 12:55] LABS: Urine Appearance CLEAR; Urine Bilirubin NEGATIVE (NEG); Urine Blood NEGATIVE (NEG); Urine Color YELLOW; Urine Glucose 3+ (NEG); Urine Protein NEGATIVE (NEG); Urine Specific Gravity >=1.030 (1.005-1.030); Urine Urobilinogen 0.2 mg/dL (0.2-1.0); Urine pH 5.5 (5.0-7.0)
[2020-02-04 13:23] LABS: Urine Microscopic Reflex NO UMIC
[2020-02-04] MEDS ORDERED: INSULIN -REGULAR HUMAN 50 UNIT/0.5 ML ML SQ ONE ×2 (13:36→18:30)
[2020-02-04] MEDS: INSULIN -REGULAR HUMAN 50 UNIT/0.5 ML ML SQ SCH ×2 (16:30→20:37)
[2020-02-04 16:36] LABS: BUN Blood Urea Nitrogen 16 mg/dL (7-18); Bicarbonate 25 mmol/L (21-32); Glucose Level 114 mg/dL (74-106); Potassium 3.8 mmol/L (3.5-5.1); Sodium Level 142 mmol/L (136-145)
--- NOTE | 2020-02-04 16:56 | P.PN ---
Subjective Date of Service: 02/04/20 Chief Complaint: DKA Patient seen and tested positive for COVID 19. He also went into full-blown DKA last night. Insulin drip started this morning. DKA is currently resolved and patient transition to subcutaneous insulin. Noted leukocytosis and bandemia. Physical Examination - Vital Signs Temperature: 98.7 F Blood Pressure: 134/77 Pulse: 73 Respirations: 24 Pulse Ox (%): 87 - Physical Exam General: Alert, In no apparent distress HEENT: Mucous membr. moist/pink Neck: Supple, JVD not distended Respiratory: Clear to auscultation bilaterally, Normal air movement Cardiovascular: No edema, Regular rate/rhythm, Normal S1 S2 Gastrointestinal: Normal bowel sounds, Soft and benign, No tenderness Musculoskeletal: No swelling, No erythema Integumentary: No rashes Neurological: Other (Nonfocal) - Studies Laboratory Data (last 24 hrs) 02/04/20 03:03: Sodium 137, Potassium 4.6, BUN 17, Creatinine 1.12, Glucose 312 H, Phosphorus 4.4, Magnesium 1.6 L 02/04/20 03:03: WBC 16.6 H D, Hgb 14.5, Hct 42.8, Plt Count 141 L 02/04/20 03:03: Troponin I < 0.02 02/03/20 22:20: Sodium 138, Potassium 4.4, BUN 16, Creatinine 1.02, Glucose 271 H, Troponin I < 0.02 02/03/20 18:00: Sodium 139, Potassium 4.1, BUN 17, Creatinine 1.00, Glucose 234 H Assessment And Plan - Current Problems (Diagnosis) (1) Diabetes mellitus with hyperglycemia Current Visit: Yes Status: Acute (2) COVID-19 virus infection Current Visit: Yes Status: Acute (3) Sepsis Current Visit: Yes Status: Acute - Plan Patient admitted. IV Cefepime and vancomycin. Follow blood culture. UA no evidence of UTI. ADA diet Resume home insulin regimen. Insulin sliding scale.
[2020-02-04] MEDS ORDERED: VANCOMYCIN/NS 1 gm 1 GM/250 ML BAG IVPB SCH (17:00)
[2020-02-04] MEDS ORDERED: VANCOMYCIN 1.75 GM in NA CHLORIDE 0.9% 500 ML IVPB ONE (18:00)
[2020-02-04 18:14] VITALS: BMI 21.3
[2020-02-04] MEDS: CEFEPIME/SWI 1gm 10 ML IVP SCH (20:38)
[2020-02-04] MEDS ORDERED: CEFEPIME 1 GM/VIAL IV SCH (21:00)
[2020-02-04] MEDS ORDERED: INSULIN GLARGINE HUM REC ANLOG 20 UNIT SQ SCH (21:00)
[2020-02-04 23:24] VITALS: O2SAT 98
[2020-02-05] MEDS: NA CHLORIDE 0.9% 1,000 ML IV SCH (04:29)
[2020-02-05 05:21] LABS: Absolute Lymphocytes (CBC) 2.1 K/uL (0.7-4.9); Basophils % 0.4 % (0-1.3); Hematocrit 40.5 % (39.6-49.0); MPV 9.9 fL (7.6-11.3); RBC Red Blood Cell Count 4.89 M/uL (4.33-5.43)
[2020-02-05 05:31] LABS: BUN Blood Urea Nitrogen 15 mg/dL (7-18); Bicarbonate 28 mmol/L (21-32); Ferritin 111.5 ng/mL (26-388); Glucose Level 144 mg/dL (74-106); Magnesium 1.8 mg/dL (1.8-2.4); Potassium 3.4 mmol/L (3.5-5.1); Sodium Level 143 mmol/L (136-145)
[2020-02-05] MEDS ORDERED: VANCOMYCIN 1.25 GM in NA CHLORIDE 0.9% 250 ML IVPB SCH (06:00)
[2020-02-05] MEDS: INSULIN -REGULAR HUMAN 50 UNIT/0.5 ML ML SQ SCH (07:30)
[2020-02-05] MEDS ORDERED: MAGNESIUM SULFATE 1 gm IVPB 1 GM/100 ML BAG IV ONE (08:00)
[2020-02-05] MEDS ORDERED: POTASSIUM 25 MEQ EFFERV TAB PO ONE (08:00)
[2020-02-05] MEDS: CEFEPIME/SWI 1gm 10 ML IVP SCH (08:06)
[2020-02-05 08:35] VITALS: TEMP 98.7
[2020-02-05 10:41] VITALS: BP 109/75
--- NOTE | 2020-02-05 11:06 | P.DS ---
Admission Date: 02/04/20 Discharge Date: 02/05/20 Disposition: ROUTINE DISCHARGE Discharge Condition: FAIR Reason for Admission: DKA - Problems (1) DKA (diabetic ketoacidoses) Current Visit: Yes Status: Acute (2) COVID-19 virus infection Current Visit: Yes Status: Acute (3) Sepsis Current Visit: Yes Status: Acute Brief History of Present Illness: 24-year-old gentleman with a history of type 1 diabetes presented to the emergency department with a complaint of chest pain of onset today. Chest pain had resolved by the time I saw him in the ED for examination. Initial troponin is negative. EKG did not show any ischemic changes. Patient found to have hyperglycemia with glucose level of 341. Blood chemistry showing mild metabolic acidosis with bicarb of 18 and a mild anion gap. Patient did not look sick. He stated he misses insulin doses the day before admission. Patient started on IV hydration given a dose of SC insulin. He was hospitalized for monitoring. Hospital Course: Patient admitted to the medical floor and treated with subcutaneous insulin. He developed fever and tested positive for COVID 19. He also developed full-blown DKA. He was transferred to the ICU and DKA protocol initiated with insulin drip and aggressive IV hydration. DKA resolved within 24 hrs. His patient developed leukocytosis land met criteria for sepsis. Blood cultures yielded no growth. Sepsis probably related to COVID 19 infection. Leukocytosis resolved today. Patient currently has no complain. He denies shortness of breath. His SaO2 is 100% on room air. Patient is deemed clinically stable for discharge. He is prescribed his home dose long-acting insulin. Vital Signs/Physical Exam: Temp Pulse Resp BP Pulse Ox 98.7 F 82 14 109/75 99 02/05/20 08:00 02/05/20 10:00 02/05/20 10:00 02/05/20 10:00 02/05/20 10:00 General: Alert, In no apparent distress HEENT: Mucous membr. moist/pink Neck: Supple Respiratory: Clear to auscultation bilaterally, Normal air movement Cardiovascular: No edema, Regular rate/rhythm, Normal S1 S2 Capillary refill: <2 Seconds Gastrointestinal: Normal bowel sounds, Soft and benign, No tenderness Musculoskeletal: No swelling, No erythema Integumentary: No rashes Neurological: Normal strength at 5/5 x4 extr Laboratory Data at Discharge: WBC 6.0 K/uL (4.3-10.9) D 02/05/20 04:50 Hgb 13.9 g/dL (13.6-17.9) 02/05/20 04:50 Hct 40.5 % (39.6-49.0) 02/05/20 04:50 Plt Count 122 K/uL (152-406) L 02/05/20 04:50 Sodium 143 mmol/L (136-145) 02/05/20 04:50 Potassium 3.4 mmol/L (3.5-5.1) L 02/05/20 04:50 BUN 15 mg/dL (7-18) 02/05/20 04:50 Creatinine 0.82 mg/dL (0.55-1.3) 02/05/20 04:50 Glucose 144 mg/dL (74-106) H 02/05/20 04:50 Phosphorus 4.4 mg/dL (2.5-4.9) 02/04/20 03:03 Magnesium 1.8 mg/dL (1.8-2.4) 02/05/20 04:50 Total Bilirubin 0.7 mg/dL (0.2-1.0) 02/03/20 11:45 AST 20 U/L (15-37) 02/03/20 11:45 ALT 36 U/L (12-78) 02/03/20 11:45 Alkaline Phosphatase 93 U/L (45-117) 02/03/20 11:45 Troponin I < 0.02 ng/mL (0.0-0.045) 02/04/20 03:03 Home Medications: Cefdinir [Cefdinir*] 300 mg PO BID #14 cap 02/05/20 Insulin Glargine,Hum.rec.anlog [Toujeo Max Solostar] 20 unit SQ DAILY #10 ml 02/05/20 New Medications: Cefdinir [Cefdinir*] 300 mg PO BID #14 cap Insulin Glargine,Hum.rec.anlog [Toujeo Max Solostar] 20 unit SQ DAILY #10 ml Diet: ADA Time spent managing pt's care (in minutes): 33
== END 2020-02-05 12:00 | disposition home or self-care (01) | DRG 871 ==
LOC: ER 10:43 → ERHOLD 16:22 → 2ND 21:45 → 3RD-ICU 02-04 06:41 → OBSVTOIN 02-04 08:05
PROVIDERS: ADMIT Internal Medicine; ATTEND Internal Medicine
DX: A41.89 Other specified sepsis (principal); U07.1 COVID-19; E10.10 Type 1 diabetes mellitus with ketoacidosis without coma; D72.825 Bandemia; Z79.4 Long term (current) use of insulin; T38.3X6A Underdosing of insulin and oral hypoglycemic [antidiabetic] drugs, initial encounter; Z91.128 Patient's intentional underdosing of medication regimen for other reason
CPT/HCPCS: 36415; 71045; 80048; 80076; 81003; 82010; 82728; 82805; 82947; 83735; 84100; 84145; 84484; 85025; 86140; 87040; 93005; 94760; 96361; 96374; 96375; 99285; G0378; J0692; J1815; J2270; J2405; J3370; J3475; J7030; J7040; J7050; U0003

== ENCOUNTER 2020-09-04 20:14 | Observation (INO) | payer OTHER ==
[2020-09-04 21:01] LABS: Absolute Lymphocytes (CBC) 1.8 K/uL (0.7-4.9); Basophils % 0.8 % (0-1.3); Lymphocytes % 25.7 % (15.3-44.8); RBC Red Blood Cell Count 5.68 M/uL (4.33-5.43)
[2020-09-04 21:16] LABS: Urine Blood NEGATIVE (NEG); Urine Glucose NEGATIVE (NEG); Urine Protein NEGATIVE (NEG); Urine Specific Gravity 1.015 (1.005-1.030); Urine pH 5.5 (5.0-7.0)
[2020-09-04 21:18] LABS: ALT/SGPT 24 U/L (12-78); AST/SGOT 15 U/L (15-37); Alkaline Phosphatase 62 U/L (45-117); BUN Blood Urea Nitrogen 16 mg/dL (7-18); Bicarbonate 31 mmol/L (21-32); Bilirubin Direct 0.1 mg/dL (0-0.2); Bilirubin Total 0.3 mg/dL (0.2-1.0); Glucose Level 83 mg/dL (74-106); Protein, Total 7.8 g/dL (6.4-8.2); Sodium Level 144 mmol/L (136-145)
[2020-09-04 21:27] LABS: Barbiturates NEGATIVE (NEGATIVE); Benzodiazepines NEGATIVE (NEGATIVE); Cocaine NEGATIVE (NEGATIVE); METHAMPHETAM NEGATIVE (NEGATIVE); Methadone NEGATIVE (NEGATIVE); Opiates NEGATIVE (NEGATIVE); Phencyclidine NEGATIVE (NEGATIVE); THC Cannibis NEGATIVE (NEGATIVE)
--- NOTE | 2020-09-05 02:10 | ER ---
Nurse's Notes [facility] Name: Hermelindo Driscoll Age: 25 yrs Sex: Male : 1995 Arrival Date: 09/04/2020 Time: 20:19 Bed 6 Private MD: Diagnosis: Hypoglycemia, unspecified Presentation: 09/04 20:23 Chief complaint: EMS states: called out for low BGL, on scene it was 29, pt was semi em responsive, given D10 on scene, on arrival to hospital BGL 141, pt A\T\O x 4 on arrival, BGL 104 at the hospital. Coronavirus screen: Client denies travel out of the [place] in the last 14 days. Ebola Screen: Patient negative for fever greater than or equal to 101.5 degrees Fahrenheit, and additional compatible Ebola Virus Disease symptoms Patient denies exposure to infectious person. Patient denies travel to an Ebola-affected area in the 21 days before illness onset. No symptoms or risks identified at this time. Initial Sepsis Screen: Does the patient meet any 2 criteria? HR > 90 bpm. Does the patient have a suspected source of infection? No. Patient's initial sepsis screen is negative. Risk Assessment: Do you want to hurt yourself or someone else? Patient reports no desire to harm self or others. Onset of symptoms was September 04, 2020. 20:23 Method Of Arrival: EMS: [facility] em 20:23 Acuity: CHELY 3 em Historical: - Allergies: 20:27 No Known Allergies; em - PMHx: 20:27 Diabetes - IDDM; em - PSHx: 20:27 None; em - Immunization history:: Adult Immunizations up to date. - Social history:: Smoking status: Patient denies any tobacco usage or history of. Screenin:32 Abuse screen: Denies threats or abuse. Nutritional screening: No deficits noted. em Tuberculosis screening: No symptoms or risk factors identified. Fall Risk None identified. Assessment: 20:23 General: Appears in no apparent distress. comfortable, Behavior is calm, cooperative, em appropriate for age. Pain: Denies pain. Neuro: Level of Consciousness is awake, alert, obeys commands, Oriented to person, place, time, situation, Speech is normal. Cardiovascular: Capillary refill < 3 seconds Patient's skin is warm and dry. Respiratory: Airway is patent Respiratory effort is even, unlabored, Respiratory pattern is regular, symmetrical. GI: Patient currently denies nausea, vomiting. Derm: Skin is intact, is healthy with good turgor, Skin is pink, warm \T\ dry. Musculoskeletal: Capillary refill < 3 seconds, Range of motion: intact in all extremities. 20:40 Reassessment: pt given turkey sandwich, chips and gatorade, tolerated well. em 21:58 Reassessment: Patient appears in no apparent distress at this time. Patient and/or em family updated on plan of care and expected duration. Pain level reassessed. Patient is alert, oriented x 3, equal unlabored respirations, skin warm/dry/pink. 23:13 Reassessment: Patient appears in no apparent distress at this time. Patient and/or em family updated on plan of care and expected duration. Pain level reassessed. Patient is alert, oriented x 3, equal unlabored respirations, skin warm/dry/pink. 09/05 01:14 Reassessment: Patient and/or family updated on plan of care and expected duration. Pain ea level reassessed. Pt resting with eyes closed, respirations even and unlabored. Chest expansions even and symmetrical. No s/s of pain or discomfort noted at this time. 01:57 Reassessment: Patient appears in no apparent distress at this time. Patient is alert, em oriented x 3, equal unlabored respirations, skin warm/dry/pink. rechecked BGL 41, provider notified, received VO for 1 AMP D50 IVP x 1. Vital Signs: 09/04 20:23 BP 149 / 103; Pulse 97; Resp 18; Pulse Ox 100% on R/A; Pain 0/10; em 20:42 Temp 98.0; em 21:01 BP 134 / 85; Pulse 80; Resp 18; Pulse Ox 100% on R/A; em 23:13 BP 128 / 84; Pulse 69; Resp 18; Pulse Ox 98% on R/A; em 09/05 01:16 BP 133 / 86; Pulse 71; Resp 18; Pulse Ox 99% ; ea 02:11 BP 140 / 62; Pulse 81; Resp 18; Pulse Ox 99% on R/A; em ED Course: 09/04 20:19 Patient arrived in ED. lp1 20:20 Pedro Lawrence MD is Attending Physician. mh7 20:23 Go Madrigal, RN is Primary Nurse. em 20:23 Maintain EMS IV. Dressing intact. Good blood return noted. Site clean \T\ dry. Gauge \T\ em site: 18 R FA. 20:26 Triage completed. em 20:27 Arm band placed on. em 20:32 Patient has correct armband on for positive identification. Bed in low position. Call em light in reach. Pulse ox on. NIBP on. 09/05 02:08 Kaitlin Robin MD is Hospitalizing Provider. 7 02:49 No provider procedures requiring assistance completed. Patient admitted, IV remains in em place. Administered Medications: 02:02 Drug: D50W 50 ml Route: IVP; Site: right forearm; em 06:20 Follow up: Response: No adverse reaction ea 02:15 Drug: D5-1/2 NS 1000 ml Route: IV; Rate: 100 ml/hr; Site: right forearm; em 06:20 Follow up: IV Status: Infusion continued upon admission ea 04:21 Drug: D50W 50 ml Route: IVP; Site: right forearm; em 06:20 Follow up: Response: No adverse reaction ea Outcome: 02:09 Decision to Hospitalize by Provider. 7 02:49 Admitted to ER Hold. Please see [facility] for further documentation. em 02:49 Condition: stable 02:49 Instructed on the need for admit. 21:59 Admitted to Med/surg accompanied by nurse, via wheelchair, room 209, with chart, Report mg2 called to ANNALISA Melendez 21:59 Condition: good 21:59 Instructed on the need for admit, Demonstrated understanding of instructions. 22:03 Patient left the ED. mg2 Signatures: Go Madrigal, RN RN em Lizy Butcher, RN RN lp1 Selena Wilson RN RN ea Gardose, Michele, RN RN mg2 Pedro Lawrence MD MD [facility]
--- NOTE | 2020-09-05 02:10 | EDPHYS ---
Physician Documentation [facility] Name: Hermelindo Driscoll Age: 25 yrs Sex: Male : 1995 Arrival Date: 09/04/2020 Time: 20:19 Bed 6 Private MD: ED Physician Pedro Lawrence HPI: 09/04 20:42 This 25 yrs old Male presents to ER via EMS with complaints of Low Blood mh7 Glucose Level. 20:42 The patient or guardian reports hypoglycemia, that was potentially precipitated by no mh7 particular event, with the patient's symptoms witnessed by family, Treatment prior to arrival includes: EMS checked blood sugar on arrival, which was 29, after treatment, the blood sugar was 140, D 10. Onset: The symptoms/episode began/occurred today. Associated signs and symptoms: Pertinent positives: decreased responsiveness, Pertinent negatives: anorexia, diarrhea, nausea, polydipsia, polyphagia, polyuria, seizure activity, urinary incontinence, vomiting. Current symptoms: In the emergency department the patient's symptoms have resolved, the patient is alert and fully oriented, has normal speech, has normal responsiveness, has no confusion. The patient has experienced similar episodes in the past, a few times. Historical: - Allergies: 20:27 No Known Allergies; em - PMHx: 20:27 Diabetes - IDDM; em - PSHx: 20:27 None; em - Immunization history:: Adult Immunizations up to date. - Social history:: Smoking status: Patient denies any tobacco usage or history of. ROS: 20:42 Constitutional: Negative for fever, chills, and weight loss, Eyes: Negative for injury, mh7 pain, redness, and discharge, ENT: Negative for injury, pain, and discharge, Neck: Negative for injury, pain, and swelling, Cardiovascular: Negative for chest pain, palpitations, and edema, Respiratory: Negative for shortness of breath, cough, wheezing, and pleuritic chest pain, Abdomen/GI: Negative for abdominal pain, nausea, vomiting, diarrhea, and constipation, Back: Negative for injury and pain, : Negative for injury, bleeding, discharge, and swelling, MS/Extremity: Negative for injury and deformity, Skin: Negative for injury, rash, and discoloration, Neuro: Negative for headache, weakness, numbness, tingling, and seizure, Psych: Negative for depression, anxiety, suicide ideation, homicidal ideation, and hallucinations, Allergy/Immunology: Negative for hives, rash, and allergies, Endocrine: Negative for neck swelling, polydipsia, polyuria, polyphagia, and marked weight changes, Hematologic/Lymphatic: Negative for swollen nodes, abnormal bleeding, and unusual bruising. Exam: 20:42 Constitutional: This is a well developed, well nourished patient who is awake, alert, mh7 and in no acute distress. Head/Face: Normocephalic, atraumatic. Eyes: Pupils equal round and reactive to light, extra-ocular motions intact. Lids and lashes normal. Conjunctiva and sclera are non-icteric and not injected. Cornea within normal limits. Periorbital areas with no swelling, redness, or edema. Neck: Trachea midline, no thyromegaly or masses palpated, and no cervical lymphadenopathy. Supple, full range of motion without nuchal rigidity, or vertebral point tenderness. No Meningismus. Chest/axilla: Normal chest wall appearance and motion. Nontender with no deformity. No lesions are appreciated. Cardiovascular: Regular rate and rhythm with a normal S1 and S2. No gallops, murmurs, or rubs. Normal PMI, no JVD. No pulse deficits. Respiratory: Lungs have equal breath sounds bilaterally, clear to auscultation and percussion. No rales, rhonchi or wheezes noted. No increased work of breathing, no retractions or nasal flaring. Abdomen/GI: Soft, non-tender, with normal bowel sounds. No distension or tympany. No guarding or rebound. No evidence of tenderness throughout. Back: No spinal tenderness. No costovertebral tenderness. Full range of motion. Skin: Warm, dry with normal turgor. Normal color with no rashes, no lesions, and no evidence of cellulitis. MS/ Extremity: Pulses equal, no cyanosis. Neurovascular intact. Full, normal range of motion. Neuro: Awake and alert, GCS 15, oriented to person, place, time, and situation. Cranial nerves II-XII grossly intact. Motor strength 5/5 in all extremities. Sensory grossly intact. Cerebellar exam normal. Normal gait. Psych: Awake, alert, with orientation to person, place and time. Behavior, mood, and affect are within normal limits. Vital Signs: 20:23 BP 149 / 103; Pulse 97; Resp 18; Pulse Ox 100% on R/A; Pain 0/10; em 20:42 Temp 98.0; em 21:01 BP 134 / 85; Pulse 80; Resp 18; Pulse Ox 100% on R/A; em 23:13 BP 128 / 84; Pulse 69; Resp 18; Pulse Ox 98% on R/A; em 03 01:16 BP 133 / 86; Pulse 71; Resp 18; Pulse Ox 99% ; ea 02:11 BP 140 / 62; Pulse 81; Resp 18; Pulse Ox 99% on R/A; em MDM: 02:07 Differential diagnosis: Carnegie's syndrome, hypoglycemic episode, Medication Reaction. [facility] Data reviewed: vital signs, nurses notes, old medical records, lab test result(s), CBC, electrolytes, urinalysis, EKG. Data interpreted: Pulse oximetry: on room air is 99 %. Interpretation: normal. Counseling: I had a detailed discussion with the patient and/or guardian regarding: the historical points, exam findings, and any diagnostic results supporting the discharge/admit diagnosis, lab results, the need for further work-up and treatment in the hospital. Response to treatment: the patient's symptoms have mildly improved after treatment. 02:09 Patient medically screened. [facility] 09/04 20:35 Order name: Glucose, Ancillary Testing; Complete Time: 20:41 EDMS 09/04 20:40 Order name: CBC with Diff [facility] 09/04 20:40 Order name: Basic Metabolic Panel [facility] 09/04 20:40 Order name: LFT's [facility] 09/04 20:41 Order name: CBC with Automated Diff; Complete Time: 21:32 EDMS 09/04 20:41 Order name: Basic Metabolic Panel; Complete Time: 21:32 EDMS 09/04 20:41 Order name: Liver (Hepatic) Function; Complete Time: 21:32 EDMS 09/04 20:49 Order name: Urine Dipstick--Ancillary (enter results); Complete Time: 21:32 tt3 09/04 21:02 Order name: UDS; Complete Time: 21:32 [facility] 09/04 22:01 Order name: Glucose, Ancillary Testing; Complete Time: 22:30 EDMS 09/04 23:17 Order name: Glucose, Ancillary Testing; Complete Time: 00:11 EDMS 09/05 00:46 Order name: Glucose, Ancillary Testing; Complete Time: 01:21 [facility] 09/05 01:56 Order name: Glucose 09/05 02:07 Order name: Glucose, Ancillary Testing [facility] 09/05 04:16 Order name: COVID-19 : Document "Date of Symptom Onset" if Symptomatic. lp1 09/05 04:21 Order name: Glucose em 09/05 04:27 Order name: Glucose, Ancillary Testing [facility] 09/05 04:44 Order name: CORONAVIRUS [facility] 09/05 04:48 Order name: Glucose Level [facility] 09/05 05:33 Order name: Glucose, Ancillary Testing [facility] 09/05 05:41 Order name: SARS-COV-2 RT PCR [facility] 09/05 06:31 Order name: Glucose, Ancillary Testing [facility] 09/05 07:35 Order name: Glucose, Ancillary Testing [facility] 09/05 08:33 Order name: Glucose, Ancillary Testing [facility] 09/05 09:04 Order name: Basic Metabolic Panel [facility] 09/05 09:04 Order name: Magnesium [facility] 09/05 09:17 Order name: Hemoglobin A1c [facility] 09/05 09:46 Order name: Glucose, Ancillary Testing [facility] 09/05 10:29 Order name: Glucose, Ancillary Testing [facility] 09/05 11:28 Order name: Glucose, Ancillary Testing [facility] 09/04 20:40 Order name: Urine Dipstick-Ancillary (obtain specimen); Complete Time: 20:48 [facility] 09/04 20:40 Order name: EKG - Nurse/Tech; Complete Time: 21:00 [facility] 09/05 06:20 Order name: Diet Regular; Complete Time: 06:21 09/05 12:16 Order name: Glucose, Ancillary Testing [facility] 09/05 13:12 Order name: Glucose, Ancillary Testing [facility] 09/05 13:16 Order name: Urinalysis [facility] 09/05 14:28 Order name: Glucose, Ancillary Testing [facility] 09/05 15:15 Order name: Glucose, Ancillary Testing [facility] 09/05 16:12 Order name: Glucose, Ancillary Testing [facility] 09/05 17:41 Order name: Glucose, Ancillary Testing [facility] 09/05 19:03 Order name: Glucose, Ancillary Testing [facility] 09/05 20:18 Order name: Glucose, Ancillary Testing [facility] 09/05 21:13 Order name: Glucose, Ancillary Testing EDMS Administered Medications: 02:02 Drug: D50W 50 ml Route: IVP; Site: right forearm; em 06:20 Follow up: Response: No adverse reaction ea 02:15 Drug: D5-1/2 NS 1000 ml Route: IV; Rate: 100 ml/hr; Site: right forearm; em 06:20 Follow up: IV Status: Infusion continued upon admission ea 04:21 Drug: D50W 50 ml Route: IVP; Site: right forearm; em 06:20 Follow up: Response: No adverse reaction ea Disposition: 09/05/20 02:09 Hospitalization ordered by Kaitlin Robin for Inpatient Admission. Preliminary diagnosis is Hypoglycemia, unspecified. - Bed requested for Telemetry/MedSurg (Inpatient). - Status is Inpatient Admission. mg2 - Condition is Stable. - Problem is new. - Symptoms have improved. Signatures: Dispatcher [employer] EDNY Go Madrigal RN RN Maximino Leahy, COMPUTER TRAINING SPECIALIST-C COMPUTER TRAINING SPECIALIST-Cla1 Soniya Levy RN RN Selena Wilson RN RN Reginald Weber RN RN [facility] Pedro Lawrence MD MD 7 Corrections: (The following items were deleted from the chart) 02:45 02:09 Hospitalization Ordered by Kaitlin Robin MD for Inpatient Admission. Preliminary cg diagnosis is Hypoglycemia, unspecified. Bed requested for Telemetry/MedSurg (Inpatient). Status is Inpatient Admission. Condition is Stable. Problem is new. Symptoms have improved. [facility] 21:53 02:45 09/05/2020 02:09 Hospitalization Ordered by Kaitlin Robin MD for Inpatient cg Admission. Preliminary diagnosis is Hypoglycemia, unspecified. Bed requested for [facility] ER HOLD. Status is Inpatient Admission. Condition is Stable. Problem is new. Symptoms have improved. 22:03 21:53 09/05/2020 02:09 Hospitalization Ordered by Kaitlin Robin MD for Inpatient mg2 Admission. Preliminary diagnosis is Hypoglycemia, unspecified. Bed requested for Telemetry/MedSurg (Inpatient). Status is Inpatient Admission. Condition is Stable. Problem is new. Symptoms have improved. cg
[2020-09-05] MEDS ORDERED: D50W 25 GM/50 ML SYRINGE IV ONE (02:14)
[2020-09-05] MEDS ORDERED: D5 0.45 NS 0 ML IV ONE (02:24)
--- NOTE | 2020-09-05 02:30 | P.HP ---
Certification for Inpatient Patient admitted to: Observation With expected LOS: <2 Midnights Patient will require the following post-hospital care: None Practitioner: I am a practitioner with admitting privileges, knowledge of patient current condition, hospital course, and medical plan of care. Services: Services provided to patient in accordance with Admission requirements found in Title 42 Section 412.3 of the Code of Federal Regulations <Maximino Leahy - Last Filed: 09/05/20 02:24> Patient History Date of Service: 09/05/20 Primary Care Provider: unknown Reason for admission: hyopglycemia History of Present Illness: 25-year-old male history of type 1 diabetes presents emergency department for hypoglycemia. Patient routinely takes toujeo 30 units daily in addition to NovoLog insulin 5-10 units a.c. hs for sliding scale. Family reports patient also sometimes uses extra insulin to Get away with eating sweets. Patient has the mental capacity of approximately 10-year-old per his sister. Families phone number [phone]. Patient was evaluated in the emergency department and usual blood sugar 83, given sandwich, cake blood sugar spiked to 200 is but drops again at 1:54 a.m. back down to 41. Given patient's use of long-acting insulin and unknown dose ED provider wishes to admit patient for observation. - Past Medical/Surgical History Diabetic: Yes -: Diabetes mellitus type 1 -: None - Social History Smoking Status: Never smoker Alcohol use: No CD- Drugs: No Caffeine use: No Place of Residence: Home <Maximino Leahy - Last Filed: 09/05/20 02:24> Date of Service: 09/05/20 <Kaitlin Robin - Last Filed: 09/13/20 05:10> Allergies No Known Allergies Allergy (Verified 09/05/20 09:45) Home Medications: Cefdinir [Cefdinir*] 300 mg PO BID #14 cap 02/05/20 Insulin Aspart Prot/Insuln Asp [Novolog Mix 70-30 Flexpen] 5 units SQ AC #1 09/06/20 Review of Systems Unremarkable <Maximino Leahy - Last Filed: 09/05/20 02:24> Physical Examination - Physical Exam General: Alert, In no apparent distress HEENT: Atraumatic, PERRLA, Other (Mucous membranes dry), EOMI, Sclerae nonicteric Neck: Supple, 2+ carotid pulse no bruit, No LAD, Without JVD or thyroid abnormality Respiratory: Clear to auscultation bilaterally, Normal air movement Cardiovascular: Regular rate/rhythm, Normal S1 S2 Gastrointestinal: Normal bowel sounds, No tenderness Musculoskeletal: No tenderness Integumentary: No rashes Neurological: Normal gait, Normal speech, Normal strength at 5/5 x4 extr, Normal tone, Normal affect - Studies Laboratory Data (last 24 hrs) 09/04/20 20:50: Sodium 144, Potassium 4.0, BUN 16, Creatinine 0.85, Glucose 83, Total Bilirubin 0.3, AST 15, ALT 24, Alkaline Phosphatase 62 09/04/20 20:50: WBC 6.80, Hgb 15.7, Hct 47.0, Plt Count 165 <Maximino Leahy - Last Filed: 09/05/20 02:24> Assessment and Plan - Problems (Diagnosis) (1) Hypoglycemia due to insulin Onset Date: ~09/04/20 Status: Acute Plan: Q.1h Accu-Cheks at this time, continue D5 half NS at 100 cc/hour. Continue regular diet. Patient routinely takes 30 units of long-acting insulin daily in addition to sliding scale the patient family reports that sometimes he takes extra insulin in order to get away with eating sweets. BP prophylaxis Lovenox 40 mg subcutaneous once daily. (2) DM type 1 (diabetes mellitus, type 1) Status: Acute Qualifiers: Diabetes mellitus complication status: with hypoglycemia Diabetes mellitus complication detail: without coma Qualified Code(s): E10.649 - Type 1 diabetes mellitus with hypoglycemia without coma Discharge Plan: Home Plan to discharge in: 24 Hours - Advance Directives Does patient have a Living Will: No Does patient have a Durable POA for Healthcare: No - Code Status/Comfort Care Code Status Assessed: Yes (Full code) Critical Care: No Time Spent Managing Pts Care (In Minutes): 55 <Maximino Leahy - Last Filed: 09/05/20 02:24> Date of Service: 09/05/20 Patient be admitted to the hospital with hypoglycemia. Will monitor him overnight and anticipate discharge in the morning. <Kaitlin Robin - Last Filed: 09/13/20 05:10>
[2020-09-05] MEDS ORDERED: D50W 50 ML IV ONE (04:32)
[2020-09-05] MEDS ORDERED: ONDANSETRON 4 MG/2 ML VIAL IV PRN (08:10)
[2020-09-05] MEDS ORDERED: ACETAMINOPHEN 500 MG TAB PO PRN (08:10)
[2020-09-05] MEDS ORDERED: D50W 25 GM/50 ML SYRINGE IV PRN (08:10)
[2020-09-05] MEDS ORDERED: D5 0.45 NS 1,000 ML IV SCH (08:10)
[2020-09-05] MEDS: ENOXAPARIN 40 MG/0.4 ML SQ SCH (09:00)
[2020-09-05 09:04] LABS: BUN Blood Urea Nitrogen 12 mg/dL (7-18); Bicarbonate 33 mmol/L (21-32); Glucose Level 273 mg/dL (74-106); Potassium 3.6 mmol/L (3.5-5.1); Sodium Level 141 mmol/L (136-145)
[2020-09-05 09:11] VITALS: BMI 21.9
[2020-09-05] MEDS ORDERED: INFLUENZA VACCINE (for 3y+) 0.5 ML DOSE IMVAC ONE (10:00)
[2020-09-05] MEDS ORDERED: POTASSIUM CL SA 10 MEQ TAB PO ONE (10:04)
[2020-09-05] MEDS ORDERED: ENOXAPARIN 40 MG/0.4 ML SQ ONE (10:27)
[2020-09-05] MEDS ORDERED: D5 0.45 NS 1,000 ML IV ONE (10:28)
[2020-09-05 13:14] LABS: Urine Appearance CLEAR; Urine Bilirubin NEGATIVE (NEG); Urine Blood NEGATIVE (NEG); Urine Color YELLOW; Urine Glucose 3+ (NEG); Urine Protein NEGATIVE (NEG); Urine Specific Gravity 1.015 (1.005-1.030); Urine Urobilinogen 0.2 mg/dL (0.2-1.0); Urine pH 6.5 (5.0-7.0)
[2020-09-05 13:16] LABS: Urine Microscopic Reflex NO UMIC
[2020-09-05] MEDS ORDERED: INSULIN GLARGINE 100 UNITS/ML SQ SCH ×2 (15:30→18:00)
[2020-09-05] MEDS ORDERED: D50W 25 GM/50 ML VIAL IV PRN (18:00)
[2020-09-05] MEDS ORDERED: INSULIN GLARGINE 100 UNITS/ML SQ ONE (18:27)
[2020-09-05 22:37] VITALS: O2SAT 99
[2020-09-06 05:46] VITALS: BP 118/70; TEMP 98.3
[2020-09-06 06:34] LABS: BUN Blood Urea Nitrogen 12 mg/dL (7-18); Bicarbonate 33 mmol/L (21-32); Glucose Level 160 mg/dL (74-106); Potassium 3.9 mmol/L (3.5-5.1); Sodium Level 141 mmol/L (136-145)
[2020-09-06] MEDS ORDERED: HOME MED 1 EA UNK (Insulin Glargine,Hum.Rec.Anlog [Toujeo Max Solostar] 300 UNIT/ML Insuln SQ SCH (09:00)
[2020-09-06] MEDS: ENOXAPARIN 40 MG/0.4 ML SQ SCH (09:19)
[2020-09-06] MEDS ORDERED: POTASSIUM 25 MEQ EFFERV TAB PO ONE (09:49)
--- NOTE | 2020-09-13 05:11 | P.DS ---
Discharge Date: 09/06/20 Primary Care Provider: unknown Disposition: ROUTINE DISCHARGE Discharge Condition: GOOD Reason for Admission: hyopglycemia Brief History of Present Illness: 25-year-old male history of type 1 diabetes presents emergency department for hypoglycemia. Patient routinely takes toujeo 30 units daily in addition to NovoLog insulin 5-10 units a.c. hs for sliding scale. Family reports patient also sometimes uses extra insulin to Get away with eating sweets. Patient has the mental capacity of approximately 10-year-old per his sister. Families phone number [phone]. Patient was evaluated in the emergency department and usual blood sugar 83, given sandwich, cake blood sugar spiked to 200 is but drops again at 1:54 a.m. back down to 41. Given patient's use of long-acting insulin and unknown dose ED provider wishes to admit patient for observation. Hospital Course: Patient blood sugars have stabilized. Patient clinically doing well. At this time, patient is stable for discharge home. Vital Signs/Physical Exam: Temp Pulse Resp BP Pulse Ox 98.3 F 56 14 118/70 99 09/06/20 12:00 09/06/20 12:00 09/06/20 12:00 09/06/20 12:00 09/06/20 12:00 General: Alert, In no apparent distress, Oriented x3 Laboratory Data at Discharge: WBC 6.80 K/uL (4.3-10.9) 09/04/20 20:50 Hgb 15.7 g/dL (13.6-17.9) 09/04/20 20:50 Hct 47.0 % (39.6-49.0) 09/04/20 20:50 Plt Count 165 K/uL (152-406) 09/04/20 20:50 Sodium 141 mmol/L (136-145) 09/06/20 05:50 Potassium 3.9 mmol/L (3.5-5.1) 09/06/20 05:50 BUN 12 mg/dL (7-18) 09/06/20 05:50 Creatinine 0.82 mg/dL (0.55-1.3) 09/06/20 05:50 Glucose 160 mg/dL (74-106) H 09/06/20 05:50 Magnesium 2.0 mg/dL (1.8-2.4) 09/05/20 08:30 Total Bilirubin 0.3 mg/dL (0.2-1.0) 09/04/20 20:50 AST 15 U/L (15-37) 09/04/20 20:50 ALT 24 U/L (12-78) 09/04/20 20:50 Alkaline Phosphatase 62 U/L (45-117) 09/04/20 20:50 Home Medications: Cefdinir [Cefdinir*] 300 mg PO BID #14 cap 02/05/20 Insulin Aspart Prot/Insuln Asp [Novolog Mix 70-30 Flexpen] 5 units SQ AC #1 09/06/20 New Medications: Insulin Aspart Prot/Insuln Asp [Novolog Mix 70-30 Flexpen] 5 units SQ AC #1 Physician Discharge Instructions: OK TO DC IV AND DC HOME FOLLOW-UP WITH PRIMARY CARE PROVIDER IN 1-2 WEEKS RETURN TO THE ER IF symptoms worsen CALL or TEXT DR. STOLL AT [phone] IF ANY QUESTIONS REGARDING HOSPITAL STAY. PLEASE CALL THE FLOOR AT [phone] IF ANY MEDICATION OR NURSING QUESTIONS. Diet: ADA Activity: Fall precautions Followup: NONE,NONE [Primary Care Provider] - Time spent managing pt's care (in minutes): 35
== END 2020-09-06 13:35 | disposition home or self-care (01) ==
LOC: ER 20:14 → ERHOLD 09-05 02:10 → 2ND 09-05 22:00
PROVIDERS: ADMIT Hospitalist; ATTEND Hospitalist
DX: E10.649 Type 1 diabetes mellitus with hypoglycemia without coma (principal); T38.3X5A Adverse effect of insulin and oral hypoglycemic [antidiabetic] drugs, initial encounter; Z79.4 Long term (current) use of insulin; Z20.822 Contact with and (suspected) exposure to COVID-19
CPT/HCPCS: 96361; 93005; 85025; 80048 ×3; 36415 ×2; 83735; 82947 ×29; 80076; 80307 ×8; 81003 ×2; 83036; 96374; 99285; U0003; J1650 ×2; J1815; J7799; G0378 ×3

== ENCOUNTER 2020-09-11 04:39 | Emergency (ER) | payer OTHER ==
[2020-09-11] MEDS ORDERED: D50W 25 GM/50 ML SYRINGE IV ONE (05:13)
[2020-09-11 05:21] LABS: Absolute Lymphocytes (CBC) 1.9 K/uL (0.7-4.9); Basophils % 0.8 % (0-1.3); Hematocrit 45.1 % (39.6-49.0); Lymphocytes % 28.7 % (15.3-44.8); MPV 9.6 fL (7.6-11.3); RBC Red Blood Cell Count 5.45 M/uL (4.33-5.43)
[2020-09-11 05:49] LABS: Barbiturates NEGATIVE (NEGATIVE); Benzodiazepines NEGATIVE (NEGATIVE); Cocaine NEGATIVE (NEGATIVE); METHAMPHETAM NEGATIVE (NEGATIVE); Methadone NEGATIVE (NEGATIVE); Opiates NEGATIVE (NEGATIVE); Phencyclidine NEGATIVE (NEGATIVE); THC Cannibis NEGATIVE (NEGATIVE)
[2020-09-11 06:03] LABS: ALT/SGPT 32 U/L (12-78); AST/SGOT 22 U/L (15-37); Albumin 3.9 g/dL (3.4-5.0); Alkaline Phosphatase 62 U/L (45-117); BUN Blood Urea Nitrogen 16 mg/dL (7-18); Bicarbonate 29 mmol/L (21-32); Bilirubin Direct 0.1 mg/dL (0-0.2); Bilirubin Total 0.4 mg/dL (0.2-1.0); Potassium 3.1 mmol/L (3.5-5.1); Protein, Total 7.4 g/dL (6.4-8.2); Sodium Level 143 mmol/L (136-145)
[2020-09-11 06:06] LABS: Glucose Level 36 mg/dL (74-106)
[2020-09-11 06:18] LABS: Protime INR 1.04
[2020-09-11 06:19] LABS: Urine Blood NEGATIVE (Negative); Urine Glucose NEGATIVE (Negative); Urine Protein NEGATIVE (NEG)
--- NOTE | 2020-09-11 08:55 | EDPHYS ---
Physician Documentation [facility] Name: Hermelindo Driscoll Age: 25 yrs Sex: Male : 1995 Arrival Date: 09/11/2020 Time: 04:42 Bed 20 Private MD: ED Physician Jovanny Harrell HPI: 09/11 05:10 This 25 yrs old Male presents to ER via Wheelchair with complaints of Low mh7 Blood Sugar, Altered Mental Status. 05:10 The patient or guardian reports hypoglycemia, that was potentially precipitated by no mh7 particular event, with the patient's symptoms witnessed by family, Treatment prior to arrival includes:. Onset: The symptoms/episode began/occurred today. Associated signs and symptoms: Pertinent negatives: anorexia, constipation, decreased urine output, diaphoresis, diarrhea, dry skin, hair loss, ketones in urine, nausea, polydipsia, polyphagia, polyuria, seizure activity, skin flushing, urinary incontinence, vomiting. Current symptoms: In the emergency department the patient's symptoms have improved, markedly, is more alert. The patient has experienced similar episodes in the past, multiple times. 05:10 The patient has been recently been admitted at [facility], was mh7 discharged last week. Historical: - Allergies: 05:05 No Known Allergies; sf - Home Meds: 05:45 Toujeo SoloStar 300 unit/mL (1.5 mL) subcutaneous inpn [Active]; sf 05:57 Novolin N Sub-Q [Active]; sf - PMHx: 05:05 Diabetes - IDDM; sf - PSHx: 05:05 None; sf - Immunization history:: Adult Immunizations unknown. - Social history:: Smoking status: Patient denies any tobacco usage or history of. Patient/guardian denies using alcohol, street drugs, IV drugs. ROS: 05:10 Constitutional: Negative for fever, chills, and weight loss, Eyes: Negative for injury, mh7 pain, redness, and discharge, ENT: Negative for injury, pain, and discharge, Neck: Negative for injury, pain, and swelling, Cardiovascular: Negative for chest pain, palpitations, and edema, Respiratory: Negative for shortness of breath, cough, wheezing, and pleuritic chest pain, Abdomen/GI: Negative for abdominal pain, nausea, vomiting, diarrhea, and constipation, Back: Negative for injury and pain, : Negative for injury, bleeding, discharge, and swelling, MS/Extremity: Negative for injury and deformity, Skin: Negative for injury, rash, and discoloration, Psych: Negative for depression, anxiety, suicide ideation, homicidal ideation, and hallucinations, Allergy/Immunology: Negative for hives, rash, and allergies, Endocrine: Negative for neck swelling, polydipsia, polyuria, polyphagia, and marked weight changes, Hematologic/Lymphatic: Negative for swollen nodes, abnormal bleeding, and unusual bruising. 05:10 Neuro: Negative for gait disturbance, headache, hearing loss, loss of consciousness, numbness, seizure activity, speech changes, syncope, near syncope, tingling, tinnitus, tremor, visual changes, weakness. Exam: 05:10 Constitutional: This is a well developed, well nourished patient who is awake, alert, mh7 and in no acute distress. Head/Face: Normocephalic, atraumatic. Eyes: Pupils equal round and reactive to light, extra-ocular motions intact. Lids and lashes normal. Conjunctiva and sclera are non-icteric and not injected. Cornea within normal limits. Periorbital areas with no swelling, redness, or edema. Neck: Trachea midline, no thyromegaly or masses palpated, and no cervical lymphadenopathy. Supple, full range of motion without nuchal rigidity, or vertebral point tenderness. No Meningismus. Chest/axilla: Normal chest wall appearance and motion. Nontender with no deformity. No lesions are appreciated. Cardiovascular: Regular rate and rhythm with a normal S1 and S2. No gallops, murmurs, or rubs. Normal PMI, no JVD. No pulse deficits. Respiratory: Lungs have equal breath sounds bilaterally, clear to auscultation and percussion. No rales, rhonchi or wheezes noted. No increased work of breathing, no retractions or nasal flaring. Abdomen/GI: Soft, non-tender, with normal bowel sounds. No distension or tympany. No guarding or rebound. No evidence of tenderness throughout. Back: No spinal tenderness. No costovertebral tenderness. Full range of motion. Skin: Warm, dry with normal turgor. Normal color with no rashes, no lesions, and no evidence of cellulitis. MS/ Extremity: Pulses equal, no cyanosis. Neurovascular intact. Full, normal range of motion. Neuro: Awake and alert, GCS 15, oriented to person, place, time, and situation. Cranial nerves II-XII grossly intact. Motor strength 5/5 in all extremities. Sensory grossly intact. Cerebellar exam normal. Normal gait. Psych: Awake, alert, with orientation to person, place and time. Behavior, mood, and affect are within normal limits. Vital Signs: 05:00 BP 125 / 86; Pulse 84; Resp 16; Pulse Ox 100% ; sf 05:02 BP 111 / 79; Pulse 71; Resp 16; Temp 98.7; Pulse Ox 100% ; Pain 0/10; sf 05:15 BP 132 / 77; Pulse 81; Resp 16; Pulse Ox 99% ; sf 05:30 BP 147 / 87; Pulse 60; Resp 16; Pulse Ox 98% ; sf 05:46 BP 119 / 74; Pulse 70; Resp 16; Pulse Ox 98% ; sf 07:44 BP 110 / 77; Pulse 61; Resp 16; Pulse Ox 96% on R/A; bw 08:57 BP 108 / 74; Pulse 60; Resp 16; Pulse Ox 97% on R/A; bw MDM: 07:05 Transition of care: After a detail discussion of the patient's case, care is mh7 transferred to Jovanny Harrell MD. 07:08 Patient medically screened. rn 07:09 ED course: Pt signed out to me by Dr. Lawrence for observation period after came in for rn hypoglycemia. Glucose up > 200, if stable can be discharged per Dr. Lawrence. . 08:53 Differential diagnosis: hypoglycemic episode. Data reviewed: vital signs, nurses notes, [employer] test result(s), and as a result, I will discharge patient. Counseling: I had a detailed discussion with the patient and/or guardian regarding: the historical points, exam findings, and any diagnostic results supporting the discharge/admit diagnosis, lab results, the need for outpatient follow up, to return to the emergency department if symptoms worsen or persist or if there are any questions or concerns that arise at home. Response to treatment: the patient's symptoms have markedly improved after treatment, the patient's condition has returned to base line, the patient is now symptom free, and as a result, I will discharge patient. Special discussion: I discussed with the patient/guardian in detail that at this point there is no indication for admission to the hospital. It is understood, however, that if the symptoms persist or worsen the patient needs to return immediately for re-evaluation. 08:53 ED course: Several glucose readings > 200 since administration of D50, fed food with rn complex carbs, will dc home. . 09/11 04:52 Order name: Acetaminophen [facility] 09/11 04:52 Order name: Basic Metabolic Panel [facility] 09/11 04:52 Order name: CBC with Diff; Complete Time: 06:36 [facility] 09/11 04:52 Order name: ETOH Level; Complete Time: 06:36 [facility] 09/11 04:52 Order name: Hepatic Function; Complete Time: 06:36 [facility] 09/11 04:52 Order name: PT-INR; Complete Time: 06:36 [facility] 09/11 04:52 Order name: Ptt, Activated; Complete Time: 06:36 [facility] 09/11 04:52 Order name: Salicylate; Complete Time: 06:36 [facility] 09/11 04:52 Order name: Urine Drug Screen; Complete Time: 06:36 [facility] 09/11 04:53 Order name: Acetaminophen Level; Complete Time: 06:36 [facility] 09/11 04:53 Order name: Basic Metabolic Panel; Complete Time: 06:36 [facility] 09/11 04:55 Order name: Troponin (emerg Dept Use Only); Complete Time: 06:36 [facility] 09/11 05:02 Order name: Glucose, Ancillary Testing; Complete Time: 06:36 [facility] 09/11 05:40 Order name: Urine Dipstick--Ancillary (enter results); Complete Time: 06:36 [facility] 09/11 04:52 Order name: EKG; Complete Time: 04:53 09/11 04:52 Order name: EKG - Nurse/Tech; Complete Time: 05:41 09/11 04:52 Order name: IV Saline Lock; Complete Time: 05:06 [facility] 09/11 04:52 Order name: Labs collected and sent; Complete Time: 05:06 09/11 04:52 Order name: Urine Dipstick-Ancillary (obtain specimen); Complete Time: 05:27 7 09/11 06:13 Order name: Glucose, Ancillary Testing; Complete Time: 06:36 [facility] 09/11 07:12 Order name: Glucose, Ancillary Testing; Complete Time: 07:54 [facility] 09/11 08:03 Order name: Glucose, Ancillary Testing; Complete Time: 08:10 [facility] 09/11 08:10 Order name: PO challenge; Complete Time: 08:55 rn Administered Medications: 04:57 Drug: D50W 50 ml Route: IVP; Site: right antecubital; 08:58 Follow up: Response: No adverse reaction bw Disposition: 09/11/20 08:54 Discharged to Home. Impression: Hypoglycemia, unspecified. - Condition is Stable. - Discharge Instructions: Hypoglycemia, Blood Glucose Monitoring, Adult. - Medication Reconciliation Form, Thank You Letter, Antibiotic Education, Prescription Opioid Use form. - Follow up: Private Physician; When: As needed; Reason: Recheck today's complaints, Re-evaluation by your physician. - Problem is new. - Symptoms have improved. Signatures: Dispatcher [employer] [facility]PA Jovanny Harrell MD MD rn Holmes, Maurice, MD MD 7 José Miguel Clemons RN RN Jennifer Bose RN RN Corrections: (The following items were deleted from the chart) 09:27 08:54 09/11/2020 08:54 Discharged to Home. Impression: Hypoglycemia, unspecified. bw Condition is Stable. Forms are Medication Reconciliation Form, Thank You Letter, Antibiotic Education, Prescription Opioid Use. Follow up: Private Physician; When: As needed; Reason: Recheck today's complaints, Re-evaluation by your physician. Problem is new. Symptoms have improved. rn
--- NOTE | 2020-09-11 08:55 | ER ---
Nurse's Notes [facility] Name: Hermelindo Driscoll Age: 25 yrs Sex: Male : 1995 Arrival Date: 09/11/2020 Time: 04:42 Bed 20 Private MD: Diagnosis: Hypoglycemia, unspecified Presentation: 09/11 05:02 Chief complaint: Patient states: AMS, possible hypoglycemia. Coronavirus screen: At sf this time, unable to obtain information related to travel outside the [place] At this time, the client does not indicate any symptoms associated with coronavirus-19. Ebola Screen: Patient negative for fever greater than or equal to 101.5 degrees Fahrenheit, and additional compatible Ebola Virus Disease symptoms Patient denies exposure to infectious person. Patient denies travel to an Ebola-affected area in the 21 days before illness onset. No symptoms or risks identified at this time. Initial Sepsis Screen: Does the patient meet any 2 criteria? Altered Mental Status. No. Patient's initial sepsis screen is negative. Does the patient have a suspected source of infection? No. Patient's initial sepsis screen is negative. Risk Assessment: Do you want to hurt yourself or someone else?. Onset of symptoms is unknown. 05:02 Method Of Arrival: Wheelchair sf 05:02 Acuity: CHELY 2 sf Triage Assessment: 05:07 General: Appears well developed, well nourished, Behavior is flat, listless, quiet, sf Smells of peanut butter. Peanut butter noted to be smeared on right hand, nose and right forearm. Pain: Denies pain. EENT: No signs and/or symptoms were reported regarding the EENT system. Neuro: Level of Consciousness is confused, listless, Oriented to person. Cardiovascular: No deficits noted. Patient's skin is warm and dry. Respiratory: No deficits noted. Airway is patent Respiratory effort is even, unlabored, Respiratory pattern is regular, symmetrical. GI: No signs and/or symptoms were reported involving the gastrointestinal system. : No signs and/or symptoms were reported regarding the genitourinary system. Derm: No signs and/or symptoms reported regarding the dermatologic system. Musculoskeletal: No signs and/or symptoms reported regarding the musculoskeletal system. Historical: - Allergies: 05:05 No Known Allergies; sf - Home Meds: 05:45 Toujeo SoloStar 300 unit/mL (1.5 mL) subcutaneous inpn [Active]; sf 05:57 Novolin N Sub-Q [Active]; sf - PMHx: 05:05 Diabetes - IDDM; sf - PSHx: 05:05 None; sf - Immunization history:: Adult Immunizations unknown. - Social history:: Smoking status: Patient denies any tobacco usage or history of. Patient/guardian denies using alcohol, street drugs, IV drugs. Screenin:11 Abuse screen: Denies threats or abuse. Denies injuries from another. Nutritional sf screening: No deficits noted. Tuberculosis screening: No symptoms or risk factors identified. Never had TB. Possible symptoms: None Risk factors: None. Fall Risk No fall in past 12 months (0 pts). Secondary diagnosis (15 points) DM with current AMS. IV access (20 points). Ambulatory Aid- None/Bed Rest/Nurse Assist (0 pts). Gait- Impaired (20 pts.). Mental Status- Overestimates/Forgets Limitations (15 pts.). Total Loco Fall Scale indicates High Risk Score (45 or more points). Fall prevention measures have been instituted. Side Rails Up X 2 Placed Close to Nursing Station. Assessment: 04:58 Reassessment: Patient now alert and oriented x3 (does not remember age, date, how sf tall he is or his weight), knows name, current year and location. 05:10 Reassessment: Given food. sf 05:37 Reassessment: Patient appears in no apparent distress at this time. Patient and/or sf family updated on plan of care and expected duration. Pain level reassessed. Patient is alert, oriented x 3, equal unlabored respirations, skin warm/dry/pink. Able to give more information. Knows medications but doesn't know when last dose. States is given medications in the morning by mother Patient states symptoms have improved. 05:52 Reassessment: Father: Armando Driscoll . sf 05:57 Reassessment: Patient appears in no apparent distress at this time. No changes from sf previously documented assessment. Patient and/or family updated on plan of care and expected duration. Pain level reassessed. Patient is alert, oriented x 3, equal unlabored respirations, skin warm/dry/pink. 07:00 Reassessment: Patient appears in no apparent distress at this time. No changes from previously documented assessment. Patient and/or family updated on plan of care and expected duration. Pain level reassessed. Patient is alert, oriented x 3, equal unlabored respirations, skin warm/dry/pink. 07:44 Reassessment: Patient appears in no apparent distress at this time. No changes from previously documented assessment. Patient and/or family updated on plan of care and expected duration. Pain level reassessed. Patient is alert, oriented x 3, equal unlabored respirations, skin warm/dry/pink. Received report from Han FANG. Pt ambulated to restroom. Gait is normal and steady. No s/s of distress. Will continue to monitor. 07:47 Reassessment: pt blood glucose 226 at this time. bw 08:14 Reassessment: pt provided food and drink. 08:57 Reassessment: attempt to call patients father for warehouse picker x2. No answer. Left message. 09:15 Reassessment: pt father on way to warehouse picker patient. Vital Signs: 05:00 BP 125 / 86; Pulse 84; Resp 16; Pulse Ox 100% ; sf 05:02 BP 111 / 79; Pulse 71; Resp 16; Temp 98.7; Pulse Ox 100% ; Pain 0/10; sf 05:15 BP 132 / 77; Pulse 81; Resp 16; Pulse Ox 99% ; sf 05:30 BP 147 / 87; Pulse 60; Resp 16; Pulse Ox 98% ; sf 05:46 BP 119 / 74; Pulse 70; Resp 16; Pulse Ox 98% ; sf 07:44 BP 110 / 77; Pulse 61; Resp 16; Pulse Ox 96% on R/A; bw 08:57 BP 108 / 74; Pulse 60; Resp 16; Pulse Ox 97% on R/A; bw ED Course: 04:42 Patient arrived in ED. cf2 04:46 Pedro Lawrence MD is Attending Physician. 7 04:50 Initial lab(s) drawn, by ne, sent to lab. Inserted saline lock: 18 gauge in right sf antecubital area, using aseptic technique. Blood collected. 04:54 José Miguel Clemons, ANNALISA is Primary Nurse. sf 05:04 Triage completed. sf 05:06 Basic Metabolic Panel Sent. sf 05:06 Acetaminophen Sent. sf 05:08 Arm band placed on right wrist. sf 05:10 Urine collected: clean catch specimen, clear. sf 05:10 Patient has correct armband on for positive identification. Bed in low position. Call sf light in reach. Side rails up X2. Pulse ox on. NIBP on. Door closed. Noise minimized. Visitors limited. Lights dimmed. Verbal reassurance given. 05:37 EKG done, by ED staff, reviewed by Pedro Lawrence MD. sf 06:06 Notified ED physician of a critical lab result(s). glucose of [address] ning Lawrence notified. 07:08 Attending Physician role handed off by Pedro Lawrence MD rn 07:08 Jovanny Harrell MD is Attending Physician. rn 07:15 Report given to ANNALISA Rodriguez. sf 07:44 No provider procedures requiring assistance completed. bw 08:57 IV discontinued. bw Administered Medications: 04:57 Drug: D50W 50 ml Route: IVP; Site: right antecubital; sf 08:58 Follow up: Response: No adverse reaction bw Outcome: 08:54 Discharge ordered by . rn 09:21 Discharged to home with family. bw 09:21 Condition: improved 09:21 Discharge instructions given to patient, family, Instructed on discharge instructions, follow up and referral plans. 09:27 Patient left the ED. Signatures: Vania Crespo RN RN Jovanny Moore MD MD rn Frazier, Celesta cf2 Pedro Lawrence MD MD 7 José Miguel Clemons RN RN [facility], ANNALISA Rodriguez RN bw Corrections: (The following items were deleted from the chart) 05:56 05:07 General: Appears well developed, well nourished, Behavior is flat, listless, sf quiet, sf
[2020-09-11 09:38] VITALS: TEMP 98.7
[2020-09-11 09:44] VITALS: BP 108/74; O2SAT 97
--- NOTE | 2020-09-11 09:48 | EKG ---
Test Date: 2020-09-11 Test Time: 05:37:28 Media Technician: MILAD MEASUREMENT RESULTS: Intervals: Rate: 71 SC: 148 QRSD: 92 QT: 404 QTc: 439 [place]: P: 59 SC: 148 QRS: 36 T: 48 INTERPRETIVE STATEMENTS: Normal sinus rhythm Normal ECG Compared to ECG 09/04/2020 19:57:46 No significant changes Electronically Signed On 09-11-20 09:47:29 CDT by Dio Giordano
== END 2020-09-11 09:27 | disposition home or self-care (01) ==
LOC: ER 04:39
DX: E11.649 Type 2 diabetes mellitus with hypoglycemia without coma (principal); Z79.4 Long term (current) use of insulin
CPT/HCPCS: 36415; 80048; 80076; 80307; 80320; 80329; 81003; 82947; 84484; 85025; 85610; 85730; 93005; 96374; 99284

== ENCOUNTER 2021-03-25 22:21 | Emergency (ER) | payer OTHER, SELFPAY ==
[2021-03-25 23:08] LABS: Absolute Lymphocytes (CBC) 1.5 K/uL (0.7-4.9); Hematocrit 43.6 % (39.6-49.0); Lymphocytes % 28.5 % (15.3-44.8); MPV 9.8 fL (7.6-11.3); RBC Red Blood Cell Count 5.15 M/uL (4.33-5.43)
[2021-03-25] MEDS ORDERED: ONDANSETRON 4 MG/2 ML VIAL ONE (23:29)
[2021-03-25] MEDS ORDERED: FAMOTIDINE 20 MG/2 ML VIAL IV ONE (23:30)
[2021-03-25] MEDS ORDERED: NA CHLORIDE 0.9% 2,000 ML ONE (23:30)
[2021-03-25] MEDS ORDERED: INSULIN -REGULAR HUMAN 50 UNIT/0.5 ML ML ONE (23:30)
[2021-03-25 23:55] LABS: ALT/SGPT 40 U/L (12-78); Albumin 3.9 g/dL (3.4-5.0); Alkaline Phosphatase 67 U/L (45-117); BUN Blood Urea Nitrogen 22 mg/dL (7-18); Bicarbonate 28 mmol/L (21-32); Bilirubin Direct < 0.1 mg/dL (0-0.2); Bilirubin Total 0.3 mg/dL (0.2-1.0); Lipase 173 U/L (73-393); Protein, Total 6.8 g/dL (6.4-8.2); Sodium Level 136 mmol/L (136-145)
[2021-03-25 23:56] LABS: AST/SGOT 35 U/L (15-37); Glucose Level 541 mg/dL (74-106); Potassium 3.8 mmol/L (3.5-5.1)
[2021-03-26 00:11] LABS: Urine Blood Negative (Negative); Urine Glucose 2+ (Negative); Urine Protein Negative (Negative)
[2021-03-26] MEDS ORDERED: INSULIN -REGULAR HUMAN 50 UNIT/0.5 ML ML ONE (00:42)
[2021-03-26] MEDS ORDERED: NA CHLORIDE 0.9% 1,000 ML ONE (00:42)
--- NOTE | 2021-03-26 00:58 | EDPHYS ---
Physician Documentation [facility] Name: Hermelindo Driscoll Age: 25 yrs Sex: Male : 1995 Arrival Date: 03/25/2021 Time: 22:25 Bed 16 Private MD: ED Physician Pankaj Salazar HPI: 03/25 22:50 This 25 yrs old Male presents to ER via EMS with complaints of Nausea/Vomiting.cp 22:50 The patient presents to the emergency department with nausea, that is mild, vomiting, cp that is intermittent. Onset: The symptoms/episode began/occurred today. Possible causes: bad food exposure. Associated signs and symptoms: Pertinent negatives: abdominal pain, constipation, diarrhea, fever, GI bleeding. Severity of symptoms: in the emergency department the symptoms have improved moderately. Historical: - Home Meds: 22:28 Novolin N Sub-Q [Active]; Toujeo SoloStar 300 unit/mL (1.5 mL) subcutaneous inpn cw2 [Active]; - PMHx: 22:28 Diabetes - IDDM; cw2 - Immunization history:: Adult Immunizations up to date, . - Social history:: Smoking status: Patient denies any tobacco usage or history of. ROS: 22:55 Constitutional: Negative for body aches, chills, fever, poor PO intake. cp 22:55 Eyes: Negative for injury, pain, redness, and discharge. cp 22:55 ENT: Negative for ear pain, sore throat, difficulty swallowing, difficulty handling secretions. 22:55 Cardiovascular: Negative for chest pain. 22:55 Respiratory: Negative for cough, shortness of breath, wheezing. 22:55 Abdomen/GI: Positive for nausea and vomiting, Negative for abdominal pain, diarrhea, constipation. 22:55 : Negative for urinary symptoms, testicular pain 22:55 Neuro: Negative for altered mental status, headache, weakness. 22:55 All other systems are negative. Exam: 23:00 Constitutional: The patient appears in no acute distress, alert, awake, comfortable, cp non-toxic, well developed, well nourished. 23:00 Head/Face: Normocephalic, atraumatic. cp 23:00 Eyes: Periorbital structures: appear normal, Conjunctiva: normal, no exudate, no injection, Sclera: no appreciated abnormality, Lids and lashes: appear normal, bilaterally. 23:00 ENT: External ear(s): are unremarkable, Nose: is normal, Mouth: Lips: moist, Oral mucosa: pink and intact, moist, Posterior pharynx: Airway: no evidence of obstruction, patent, swelling, is not appreciated, erythema, is not appreciated, exudate, is not appreciated. 23:00 Neck: ROM/movement: is normal, is supple, without pain, no range of motions limitations. 23:00 Chest/axilla: Inspection: normal, Palpation: is normal, no crepitus, no tenderness. 23:00 Cardiovascular: Rate: normal, Rhythm: regular. 23:00 Respiratory: the patient does not display signs of respiratory distress, Respirations: normal, no use of accessory muscles, no retractions, labored breathing, is not present, Breath sounds: are clear throughout, no decreased breath sounds, no stridor, no wheezing. 23:00 Abdomen/GI: Inspection: abdomen appears normal, Bowel sounds: active, all quadrants, Palpation: abdomen is soft and non-tender, in all quadrants. 23:00 Back: pain, is absent, ROM is normal. 23:00 Neuro: Orientation: is normal, Mentation: is normal, Motor: moves all fours, strength is normal, Sensation: is normal. Vital Signs: 22:25 BP 132 / 88; Pulse 60; Resp 18; Temp 97.7; Pulse Ox 99% on R/A; Weight 68.04 kg; Height wg 5 ft. 11 in. (180.34 cm); Pain 0/10; 22:31 BP 132 / 88; Pulse 63; Resp 15; Pain 0/10; cw2 03/26 01:28 BP 111 / 85; Pulse 65; Resp 15; Temp 98.5; Pulse Ox 100% on R/A; Pain 0/10; cw2 03/25 22:25 Body Mass Index 20.92 (68.04 kg, 180.34 cm) MDM: 03/25 22:44 Patient medically screened. [facility] 03/26 00:00 Differential diagnosis: gastritis, appendicitis, viral gastroenteritis, cp gastroenteritis, DKA. 00:55 Data reviewed: vital signs, nurses notes, lab test result(s). 00:55 Counseling: I had a detailed discussion with the patient and/or guardian regarding: the cp historical points, exam findings, and any diagnostic results supporting the discharge/admit diagnosis, lab results, to return to the emergency department if symptoms worsen or persist or if there are any questions or concerns that arise at home. Response to treatment: the patient's symptoms have markedly improved after treatment, patient is well hydrated. VSS. Nausea improved and vomiting resolved. Labs reviewed and negative for DKA. Will discharge to home for continued monitoring. 03/25 22:38 Order name: Glucose, Ancillary Testing; Complete Time: 22:48 EDMS 03/25 22:48 Order name: Basic Metabolic Panel; Complete Time: 00:01 03/25 22:48 Order name: CBC with Diff; Complete Time: 23:43 cp 03/25 23:43 Interpretation: Normal except: PLT 133. 03/25 22:48 Order name: Hepatic Function; Complete Time: 00:01 03/25 22:48 Order name: Lipase; Complete Time: 00:01 03/25 22:48 Order name: Ketone, Serum; Complete Time: 00:01 03/25 22:57 Order name: Urine Microscopic Only 03/25 22:57 Order name: Urine Microscopic Only EDWA 03/26 00:11 Order name: Urine Dipstick-Ancillary EDWA 03/26 00:14 Order name: Glucose, Ancillary Testing; Complete Time: 00:54 EDWA 03/26 01:05 Order name: Glucose, Ancillary Testing EDWA 03/25 22:38 Order name: Accucheck; Complete Time: 22:43 03/25 22:48 Order name: IV Saline Lock; Complete Time: 00:40 03/25 22:48 Order name: Labs collected and sent; Complete Time: 00:40 03/25 22:57 Order name: Urine Dipstick-Ancillary (obtain specimen); Complete Time: 00:13 03/25 23:18 Order name: Labs - recollect needed; Complete Time: 23:58 em Administered Medications: 03/25 23:13 Drug: NS 0.9% 1000 ml Route: IV; Rate: 1 bolus; Site: right antecubital; cw2 23:43 Follow up: IV Status: Completed infusion; IV Intake: 1000ml cw2 23:13 Drug: Zofran (Ondansetron) 4 mg Route: IVP; Site: right antecubital; cw2 23:43 Follow up: Response: Nausea is decreased cw2 23:13 Drug: Pepcid (famotidine) 20 mg Route: IVP; Site: right antecubital; cw2 23:43 Follow up: Response: Nausea is decreased cw2 23:14 Drug: Insulin Regular Human 10 units {Co-Signature: wg (ANNALISA Mcclelland).} Route: IVP; cw2 Site: right antecubital; 23:44 Follow up: Response: No adverse reaction cw2 23:14 Drug: NS 0.9% 1000 ml Route: IV; Rate: 1 bolus; Site: right antecubital; cw2 23:44 Follow up: IV Status: Completed infusion; IV Intake: 1000ml cw2 03/26 00:08 CANCELLED (Physician Discretion): Insulin Regular Human 10 units IVP once cp 00:35 Drug: NS 0.9% 1000 ml Route: IV; Rate: 1 bolus; Site: right antecubital; cw2 00:39 Follow up: IV Status: Completed infusion; IV Intake: 1000ml cw2 00:35 Drug: Insulin Regular Human 5 units {Co-Signature: mr2 (Morro Mallory RN).} Route: IVP; cw2 Site: right antecubital; 00:40 Follow up: Response: No adverse reaction cw2 01:27 Not Given (Patient Refused): Potassium Effervescent Tablet 50 mEq PO once; dissolve in cw2 4 ounces of water Disposition Summary: 03/26/21 00:57 Discharge Ordered Location: Home cp Problem: new cp Symptoms: have improved cp Condition: Stable cp Diagnosis - Diabetes mellitus due to underlying condition with hyperglycemia cp Followup: cp - With: Private Physician - When: 1 - 2 days - Reason: Recheck today's complaints Discharge Instructions: - Discharge Summary Sheet cp - Hyperglycemia cp - Form - Daily Diabetes Record cp - Blood Glucose Monitoring, Adult cp - Diabetes Mellitus and Nutrition, Adult cp Forms: - Medication Reconciliation Form cp - Thank You Letter cp - Antibiotic Education cp - Prescription Opioid Use cp Addendum: 03/27/2021 07:00 Co-signature as Attending Physician, Pankaj Salazar MD I agree with the assessment and c holley plan of care. Signatures: Dispatcher [employer] Pankaj Mccartney MD MD cha Munoz, Edgar RN RN em PagePankaj PA PA cp Williams, Christopher, RN RN cw2 Stas, ANNALISA Mallory RN mr2 Corrections: (The following items were deleted from the chart) 03/26 00:08 00:04 Insulin Regular Human 10 units IVP once ordered. cp cp
--- NOTE | 2021-03-26 00:58 | ER ---
Nurse's Notes [facility] Name: Hermelindo Driscoll Age: 25 yrs Sex: Male : 1995 Arrival Date: 03/25/2021 Time: 22:25 Bed 16 Private MD: Diagnosis: Diabetes mellitus due to underlying condition with hyperglycemia Presentation: 03/25 22:25 Chief complaint: Patient states: Pt denies any pain, including abd pain. Pt states he wg was sick at [facility] and threw up. Denies previous episode of being sick. EMS states: Pt was picked up at [facility] where he vomited food emeis with no signs of blood. EMS states pt is diabetic and BG was 430mg/DL. EMS gave 12.5mg of Phenergan and N/V subsided. 18g. IV with approx 400ml of NS administered. Per EMS pt is responding to questions slow but per sister this was his normal state. Coronavirus screen: Vaccine status: Patient reports being unvaccinated. Client denies travel out of the [place] in the last 14 days. Ebola Screen: Patient negative for fever greater than or equal to 101.5 degrees Fahrenheit, and additional compatible Ebola Virus Disease symptoms Patient denies exposure to infectious person. Patient denies travel to an Ebola-affected area in the 21 days before illness onset. No symptoms or risks identified at this time. Initial Sepsis Screen: Does the patient meet any 2 criteria? No. Patient's initial sepsis screen is negative. Does the patient have a suspected source of infection? No. Patient's initial sepsis screen is negative. Risk Assessment: Do you want to hurt yourself or someone else? Patient reports no desire to harm self or others. Onset of symptoms was March 25, 2021 at 19:45. 22:25 Method Of Arrival: EMS: [facility] wg 22:25 Acuity: CHELY 3 wg 22:30 Risk Assessment: Do you want to hurt yourself or someone else? Patient reports no cw2 desire to harm self or others. 22:30 Initial Sepsis Screen: Does the patient meet any 2 criteria? No. Patient's initial cw2 sepsis screen is negative. 22:31 Care prior to arrival: Medication(s) given: Phenergan, 12.5 mg. wg Triage Assessment: 22:30 GI: Reports. cw2 22:30 General: Appears in no apparent distress. comfortable, slender, well groomed, Behavior wg is calm, cooperative, appropriate for age, slow to respond but per family that is his norm.. Pain: Denies pain. Cardiovascular: No deficits noted. Respiratory: No deficits noted. GI: Reports nausea, vomiting. Historical: - Home Meds: 22:28 Novolin N Sub-Q [Active]; Toujeo SoloStar 300 unit/mL (1.5 mL) subcutaneous inpn cw2 [Active]; - PMHx: 22:28 Diabetes - IDDM; cw2 - Immunization history:: Adult Immunizations up to date, . - Social history:: Smoking status: Patient denies any tobacco usage or history of. Screenin:28 Abuse screen: Denies threats or abuse. Nutritional screening: No deficits noted. cw2 Tuberculosis screening: No symptoms or risk factors identified. Fall Risk IV access (20 points). Assessment: 22:28 General: Appears in no apparent distress. Behavior is calm, cooperative, quiet. Pain: cw2 Denies pain. Neuro: No deficits noted. Cardiovascular: No deficits noted. Respiratory: No deficits noted. GI: Abdomen is flat, Pt is actively vomiting Abd is soft and non tender Abd is soft X 4 quads. : No deficits noted. Vital Signs: 22:25 BP 132 / 88; Pulse 60; Resp 18; Temp 97.7; Pulse Ox 99% on R/A; Weight 68.04 kg; Height 5 ft. 11 in. (180.34 cm); Pain 0/10; 22:31 BP 132 / 88; Pulse 63; Resp 15; Pain 0/10; cw2 10 01:28 BP 111 / 85; Pulse 65; Resp 15; Temp 98.5; Pulse Ox 100% on R/A; Pain 0/10; cw2 03/25 22:25 Body Mass Index 20.92 (68.04 kg, 180.34 cm) ED Course: 03/25 22:25 Patient arrived in ED. 22:27 Nicola Diallo, RN is Primary Nurse. cw2 22:28 No apparent distress. cw2 22:28 Patient has correct armband on for positive identification. Bed in low position. Call cw2 light in reach. Side rails up X2. Door closed. Noise minimized. Lights dimmed. 22:28 No provider procedures requiring assistance completed. Maintain EMS IV. Dressing cw2 intact. Gauge \T\ site: 18rac. Patient maintains SpO2 saturation greater than 95% on room air. 22:30 Triage completed. wg 22:31 Initial lab(s) drawn, by ED staff. cw2 22:33 Pankaj Mattson PA is PHCP. cp 22:33 Pankaj Salazar MD is Attending Physician. 03/26 00:42 Urine Dipstick-Ancillary Sent. cw2 Administered Medications: 03/25 23:13 Drug: NS 0.9% 1000 ml Route: IV; Rate: 1 bolus; Site: right antecubital; cw2 23:43 Follow up: IV Status: Completed infusion; IV Intake: 1000ml cw2 23:13 Drug: Zofran (Ondansetron) 4 mg Route: IVP; Site: right antecubital; cw2 23:43 Follow up: Response: Nausea is decreased cw2 23:13 Drug: Pepcid (famotidine) 20 mg Route: IVP; Site: right antecubital; cw2 23:43 Follow up: Response: Nausea is decreased cw2 23:14 Drug: Insulin Regular Human 10 units {Co-Signature: wg (ANNALISA Mcclelland).} Route: IVP; cw2 Site: right antecubital; 23:44 Follow up: Response: No adverse reaction cw2 23:14 Drug: NS 0.9% 1000 ml Route: IV; Rate: 1 bolus; Site: right antecubital; cw2 23:44 Follow up: IV Status: Completed infusion; IV Intake: 1000ml cw2 03/26 00:08 CANCELLED (Physician Discretion): Insulin Regular Human 10 units IVP once cp 00:35 Drug: NS 0.9% 1000 ml Route: IV; Rate: 1 bolus; Site: right antecubital; cw2 00:39 Follow up: IV Status: Completed infusion; IV Intake: 1000ml cw2 00:35 Drug: Insulin Regular Human 5 units {Co-Signature: mr2 (Morro Mallory RN).} Route: IVP; cw2 Site: right antecubital; 00:40 Follow up: Response: No adverse reaction cw2 01:27 Not Given (Patient Refused): Potassium Effervescent Tablet 50 mEq PO once; dissolve in cw2 4 ounces of water Intake: 03/25 23:43 IV: 1000ml; Total: 1000ml. cw2 23:44 IV: 1000ml; Total: 2000ml. cw2 03/26 00:39 IV: 1000ml; Total: 3000ml. cw2 Outcome: 03/25 22:28 Condition: good cw2 03/26 00:57 Discharge ordered by . darian 01:29 Patient left the ED. cw2 Signatures: Pankaj Mattson PA PA cp Gamba, Liam, RN wg Williams, Christopher, RN RN cw2 ANNALISA Mcclelland Morro Mallory RN mr2
[2021-03-26 01:24] LABS: Urine Bacteria <20 /HPF (NONE SEEN); Urine RBC NONE SEEN /HPF (NONE SEEN)
[2021-03-26 01:36] VITALS: BP 111/85; TEMP 98.5; O2SAT 100
== END 2021-03-26 01:29 | disposition home or self-care (01) ==
LOC: ER 22:21
DX: E11.65 Type 2 diabetes mellitus with hyperglycemia (principal); Z79.4 Long term (current) use of insulin
CPT/HCPCS: 36415; 80048; 80076; 81003; 81015; 82010; 82947; 83690; 85025; 96361; 96374; 96375; 99284; J2405; J7030

== ENCOUNTER 2021-09-23 09:39 | Emergency (ER) | payer OTHER ==
[2021-09-23] MEDS ORDERED: D10W 250 ML IV ONE (09:56)
[2021-09-23 10:05] LABS: Absolute Lymphocytes (CBC) 1.5 K/uL (0.7-4.9); Hematocrit 43.9 % (39.6-49.0); RBC Red Blood Cell Count 5.38 M/uL (4.33-5.43)
[2021-09-23 10:12] LABS: Protime INR 1.13
[2021-09-23 10:30] LABS: Urine Blood Negative (Negative); Urine Glucose Negative (Negative); Urine Protein Negative (Negative); Urine Specific Gravity >=1.030 (1.005-1.030); Urine pH 6.5 (5.0-7.0)
[2021-09-23] MEDS ORDERED: levETIRAcetam 1,000 MG in NA CHLORIDE 0.9% 100 ML IV SCH (10:30)
[2021-09-23 10:32] LABS: ALT/SGPT 27 U/L (12-78); AST/SGOT 18 U/L (15-37); Albumin 3.7 g/dL (3.4-5.0); Alkaline Phosphatase 52 U/L (45-117); BUN Blood Urea Nitrogen 13 mg/dL (7-18); Bicarbonate 31 mmol/L (21-32); Bilirubin Direct 0.1 mg/dL (0-0.2); Bilirubin Total 0.3 mg/dL (0.2-1.0); Protein, Total 6.7 g/dL (6.4-8.2); Sodium Level 144 mmol/L (136-145)
[2021-09-23 10:34] LABS: Glucose Level 36 mg/dL (74-106)
[2021-09-23 10:51] LABS: Barbiturates NEGATIVE (NEGATIVE); Benzodiazepines NEGATIVE (NEGATIVE); Cocaine NEGATIVE (NEGATIVE); METHAMPHETAM NEGATIVE (NEGATIVE); Methadone NEGATIVE (NEGATIVE); Opiates NEGATIVE (NEGATIVE); Phencyclidine NEGATIVE (NEGATIVE); THC Cannibis NEGATIVE (NEGATIVE)
--- NOTE | 2021-09-23 10:58 | EDPHYS ---
Physician Documentation [facility] Name: Hermelindo Driscoll Age: 26 yrs Sex: Male : 1995 Arrival Date: 09/23/2021 Time: 09:40 Bed 6 Private MD: ED Physician Pankaj Salazar HPI: 09/23 09:43 This 26 yrs old Male presents to ER via Unassigned with complaints of seizure. phillip 09:43 seizure at home. The patient presents after having a single isolated seizure. Character phillip of seizure(s): Loss of consciousness: the patient did not lose consciousness, Motor activity: generalized. Seizure onset: just prior to arrival. Context: the seizure(s) was witnessed, by family, mother. Seizure Hx: it is unknown whether or not the patient has a previous seizure history. Associated injury: The patient did not suffer any apparent associated injury. EMS care: none. Severity of symptoms: At their worst the symptoms were mild in the emergency department the symptoms have improved mildly. Historical: - Allergies: 09:44 No Known Allergies; ph - Home Meds: 09:48 Toujeo SoloStar 300 unit/mL (1.5 mL) subcutaneous inpn [Active]; Novolin N Sub-Q ph [Active]; - PMHx: 09:44 Diabetes - IDDM; ph - Immunization history:: Adult Immunizations unknown. - Family history:: not pertinent. - Social history:: Smoking status: Patient denies any tobacco usage or history of. ROS: 09:43 Constitutional: Negative for fever, chills, and weight loss, Eyes: Negative for injury, phillip pain, redness, and discharge, ENT: Negative for injury, pain, and discharge, Neck: Negative for injury, pain, and swelling, Cardiovascular: Negative for chest pain, palpitations, and edema, Respiratory: Negative for shortness of breath, cough, wheezing, and pleuritic chest pain, Abdomen/GI: Negative for abdominal pain, nausea, vomiting, diarrhea, and constipation, Back: Negative for injury and pain, : Negative for injury, bleeding, discharge, and swelling, MS/Extremity: Negative for injury and deformity, Skin: Negative for injury, rash, and discoloration, Psych: Negative for depression, anxiety, suicide ideation, homicidal ideation, and hallucinations, Allergy/Immunology: Negative for hives, rash, and allergies, Endocrine: Negative for neck swelling, polydipsia, polyuria, polyphagia, and marked weight changes, Hematologic/Lymphatic: Negative for swollen nodes, abnormal bleeding, and unusual bruising. 09:43 Neuro: Positive for seizure activity, weakness. Exam: 09:43 Constitutional: This is a well developed, well nourished patient who is awake, alert, phillip and in no acute distress. Head/Face: Normocephalic, atraumatic. Eyes: Pupils equal round and reactive to light, extra-ocular motions intact. Lids and lashes normal. Conjunctiva and sclera are non-icteric and not injected. Cornea within normal limits. Periorbital areas with no swelling, redness, or edema. ENT: Nares patent. No nasal discharge, no septal abnormalities noted. Tympanic membranes are normal and external auditory canals are clear. Oropharynx with no redness, swelling, or masses, exudates, or evidence of obstruction, uvula midline. Mucous membranes moist. Neck: Trachea midline, no thyromegaly or masses palpated, and no cervical lymphadenopathy. Supple, full range of motion without nuchal rigidity, or vertebral point tenderness. No Meningismus. Chest/axilla: Normal chest wall appearance and motion. Nontender with no deformity. No lesions are appreciated. Cardiovascular: Regular rate and rhythm with a normal S1 and S2. No gallops, murmurs, or rubs. Normal PMI, no JVD. No pulse deficits. Respiratory: Lungs have equal breath sounds bilaterally, clear to auscultation and percussion. No rales, rhonchi or wheezes noted. No increased work of breathing, no retractions or nasal flaring. Abdomen/GI: Soft, non-tender, with normal bowel sounds. No distension or tympany. No guarding or rebound. No evidence of tenderness throughout. Back: No spinal tenderness. No costovertebral tenderness. Full range of motion. Male : Normal genitalia with no discharge or lesions. Skin: Warm, dry with normal turgor. Normal color with no rashes, no lesions, and no evidence of cellulitis. Neuro: Awake and alert, GCS 15, oriented to person, place, time, and situation. Cranial nerves II-XII grossly intact. Motor strength 5/5 in all extremities. Sensory grossly intact. Cerebellar exam normal. Normal gait. Psych: Awake, alert, with orientation to person, place and time. Behavior, mood, and affect are within normal limits. 09:43 Musculoskeletal/extremity: Extremities: all appear grossly normal, with no appreciated pain with palpation, ROM: no acute changes, Pulses: Sensation intact. Compartment Syndrome exam of affected extremity: is normal. 09:43 Neuro: Orientation: to person, Not oriented to place, time, situation, Mentation: slow to respond, Memory: unable to test, Cranial nerves: is grossly normal based on the patient's age, no acute changes, Cerebellar function: is grossly normal, is grossly normal based on the patient's age, no acute changes, Motor: is normal, Sensation: is normal, Gait: not tested. seizure activity, is not displayed by the patient. 09:59 ECG was reviewed by the Attending Physician. phillip Vital Signs: 09:40 BP 121 / 83; Pulse 51; Resp 18; Temp 98.5; Pulse Ox 99% on R/A; ph 11:18 BP 116 / 86; Pulse 68; Resp 18; Temp 97.9; Pulse Ox 99% on R/A; ph MDM: 09:41 Patient medically screened. phillip 09:47 Differential Diagnosis altered mental status. Differential diagnosis: cardiac phillip arrhythmia, seizure. Data reviewed: vital signs, nurses notes, lab test result(s), EKG, radiologic studies. Data interpreted: air sampling and monitoring: rate is 51 beats/min, rhythm is regular, Pulse oximetry:. Test interpretation: by ED physician or midlevel provider: ECG, plain radiologic studies. Counseling: I had a detailed discussion with the patient and/or guardian regarding: the historical points, exam findings, and any diagnostic results supporting the discharge/admit diagnosis, lab results, radiology results. 09/23 09:43 Order name: Acetaminophen; Complete Time: 10:55 [facility] 09/23 09:43 Order name: Basic Metabolic Panel; Complete Time: 10:55 phillip 09/23 09:43 Order name: CBC with Diff; Complete Time: 10:55 [facility] 09/23 09:43 Order name: ETOH Level phillip 09/23 09:43 Order name: Hepatic Function; Complete Time: 10:55 [facility] 09/23 09:43 Order name: PT-INR; Complete Time: 10:55 phillip 09/23 09:43 Order name: Ptt, Activated; Complete Time: 10:55 [facility] 09/23 09:43 Order name: Salicylate; Complete Time: 10:55 [facility] 09/23 09:43 Order name: Urine Drug Screen; Complete Time: 10:55 [facility] 09/23 10:06 Order name: Glucose, Ancillary Testing; Complete Time: 10:55 [facility] 09/23 10:30 Order name: Urine Dipstick-Ancillary; Complete Time: 10:55 [facility] 09/23 11:27 Order name: Glucose, Ancillary Testing [facility] 09/23 09:43 Order name: EKG; Complete Time: 09:44 [facility] 09/23 09:43 Order name: EKG - Nurse/Tech; Complete Time: 09:46 [facility] 09/23 09:43 Order name: IV Saline Lock; Complete Time: 09:46 [facility] 09/23 09:43 Order name: Labs collected and sent; Complete Time: 10:00 [facility] 09/23 09:43 Order name: Suicide Precautions; Complete Time: 09:46 [facility] 09/23 09:43 Order name: Suicide Screening (Stella); Complete Time: 09:46 [facility] 09/23 09:43 Order name: Urine Dipstick-Ancillary (obtain specimen); Complete Time: 11:12 [facility] 09/23 09:43 Order name: Seizure Precautions; Complete Time: 09:46 [facility] 09/23 09:52 Order name: Diet Regular; Complete Time: 09:52 [facility] 09/23 10:56 Order name: PO challenge: juice; Complete Time: 11:04 [facility] EC:59 Rate is 58 beats/min. Rhythm is regular. QRS [place] is Normal. [place] interval is normal. QRS phillip interval is normal. QT interval is normal. No Q waves. T waves are Normal. No ST changes noted. Clinical impression: Normal ECG, Sinus bradycardia, and No evidence of ischemia. Interpreted by me. Reviewed by me. Administered Medications: 09:52 Not Given (Duplicate Order): Keppra (levETIRAcetam) 1000 mg IV at per protocol once [facility] 09:53 Drug: D50W 50 ml {Note: no dextrose in pyxis, pt given dextrose 10% in 250 mL NS at a ph bolus rate.} Route: IVP; Site: right antecubital; 11:21 Follow up: Response: No adverse reaction; Blood sugar is elevated ph 11:12 Not Given (Other Intervention Used): NS 0.9% 1000 ml IV at 1 bolus Per protocol; 1000 ph mL bolus 11:19 Drug: Potassium Effervescent Tablet 50 mEq Route: PO; ph 11:22 Follow up: Response: No adverse reaction ph Disposition Summary: 09/23/21 10:57 Discharge Ordered Location: Home phillip Problem: new phillip Symptoms: have improved phillip Condition: Stable phillip Diagnosis - Type 1 diabetes mellitus with hypoglycemia phillip - Adverse effect of insulin and oral hypoglycemic [antidiabetic] drugs phillip - Altered mental status, unspecified phillip - Hypokalemia phillip Followup: phillip - With: Private Physician - When: 1 - 2 days - Reason: Recheck today's complaints, Continuance of care, Re-evaluation by your physician Discharge Instructions: - Discharge Summary Sheet phillip - Potassium Content of Foods phillip - Hypoglycemia phillip - Hypoglycemia, [id number] phillip - Diabetes Mellitus and Nutrition, Adult phillip - Hypokalemia phillip - Type 1 Diabetes Mellitus, Diagnosis, Adult, [id number] phillip Forms: - Medication Reconciliation Form phillip - Thank You Letter phillip - Antibiotic Education phillip - Prescription Opioid Use phillip Signatures: Dispatcher [employer] EDPankaj Farrell MD MD cha Hall, Patricia RN RN ph Corrections: (The following items were deleted from the chart) 10:12 09:44 Head Brain Wo [id number].RAD.BRZ ordered. EDMS EDMS
--- NOTE | 2021-09-23 10:58 | ER ---
Nurse's Notes [facility] Name: Hermelindo Driscoll Age: 26 yrs Sex: Male : 1995 Arrival Date: 09/23/2021 Time: 09:40 Bed 6 Private MD: Diagnosis: Type 1 diabetes mellitus with hypoglycemia;Adverse effect of insulin and oral hypoglycemic [antidiabetic] drugs;Altered mental status, unspecified;Hypokalemia Presentation: 09/23 09:40 Chief complaint: EMS states: EMS called for possible diabetic issue and "shaking", upon ph arrival EMS found pt to be lethargic and appeared post-ictal, BGL 128, hx of IDDM, bradycardic w/ HR 45-50, other VS WNL, pt drowsy upon arrival to ED. Coronavirus screen: Vaccine status: Patient reports being unvaccinated. Ebola Screen: No symptoms or risks identified at this time. Initial Sepsis Screen: Does the patient meet any 2 criteria? No. Patient's initial sepsis screen is negative. Does the patient have a suspected source of infection? No. Patient's initial sepsis screen is negative. Risk Assessment: Do you want to hurt yourself or someone else? Patient reports no desire to harm self or others. 09:40 Method Of Arrival: EMS: [facility] 09:40 Acuity: CHELY 3 ph 11:22 Onset of symptoms was September 23, 2021. Triage Assessment: 09:47 General: Appears in no apparent distress. slender, Behavior is drowsy, flat, quiet. ph Pain: Unable to use pain scale. Patient is disoriented. Neuro: Level of Consciousness is awake, lethargic, Oriented to person. Cardiovascular: Capillary refill < 3 seconds in bilateral fingers Patient's skin is warm and dry. Rhythm is sinus bradycardia. Respiratory: Airway is patent Respiratory effort is even, unlabored. GI: No signs and/or symptoms were reported involving the gastrointestinal system. Derm: Skin is intact, is healthy with good turgor, Skin is pink, warm \\T\\ dry. Musculoskeletal: Circulation, motion, and sensation intact. Range of motion: intact in all extremities. Historical: - Allergies: 09:44 No Known Allergies; ph - Home Meds: 09:48 Toujeo SoloStar 300 unit/mL (1.5 mL) subcutaneous inpn [Active]; Novolin N Sub-Q ph [Active]; - PMHx: 09:44 Diabetes - IDDM; ph - Immunization history:: Adult Immunizations unknown. - Family history:: not pertinent. - Social history:: Smoking status: Patient denies any tobacco usage or history of. Screenin:45 Abuse screen: Denies threats or abuse. Denies injuries from another. Nutritional ph screening: No deficits noted. Tuberculosis screening: No symptoms or risk factors identified. Fall Risk None identified. Assessment: 09:50 Reassessment: Fingerstick BGL 28, ERP notified and IV dextrose administered. ph 11:18 Reassessment: Patient appears in no apparent distress at this time. Patient and/or ph family updated on plan of care and expected duration. Pain level reassessed. Patient is alert, oriented x 3, equal unlabored respirations, skin warm/dry/pink. Pt eating breakfast that his brother brought to ED, tolerating well, repeat BGL 89, awaiting d/c. Vital Signs: 09:40 BP 121 / 83; Pulse 51; Resp 18; Temp 98.5; Pulse Ox 99% on R/A; ph 11:18 BP 116 / 86; Pulse 68; Resp 18; Temp 97.9; Pulse Ox 99% on R/A; ph ED Course: 09:40 Patient arrived in ED. ph 09:41 Pankaj Salazar MD is Attending Physician. [facility] [place] 09:44 Triage completed. ph 09:46 Patient has correct armband on for positive identification. Bed in low position. Call ph light in reach. Side rails up X 1. residential monitor on. Pulse ox on. NIBP on. Door closed. Noise minimized. Warm blanket given. 09:46 Arm band placed on Patient placed in an exam room, on a stretcher. ph 09:50 EKG done, by ED staff, reviewed by Pankaj Salazar MD. dh3 09:50 Maintain EMS IV. Dressing intact. Good blood return noted. Site clean \\T\\ dry. Gauge \\T\\ ph site: 20 RAC. 09:53 Initial lab(s) drawn, by me, sent to lab. dh3 10:00 Vero Bowles RN is Primary Nurse. ph 11:19 No provider procedures requiring assistance completed. IV discontinued, intact, ph bleeding controlled, No redness/swelling at site. Administered Medications: 09:52 Not Given (Duplicate Order): Keppra (levETIRAcetam) 1000 mg IV at per protocol once phillip 09:53 Drug: D50W 50 ml {Note: no dextrose in pyxis, pt given dextrose 10% in 250 mL NS at a ph bolus rate.} Route: IVP; Site: right antecubital; 11:21 Follow up: Response: No adverse reaction; Blood sugar is elevated ph 11:12 Not Given (Other Intervention Used): NS 0.9% 1000 ml IV at 1 bolus Per protocol; 1000 ph mL bolus 11:19 Drug: Potassium Effervescent Tablet 50 mEq Route: PO; ph 11:22 Follow up: Response: No adverse reaction ph Outcome: 10:57 Discharge ordered by . phillip 11:22 Discharged to home ambulatory, with family. ph 11:22 Condition: good 11:22 Discharge instructions given to patient, Instructed on discharge instructions, follow up and referral plans. Demonstrated understanding of instructions, follow-up care. 11:28 Patient left the ED. vg1 Signatures: Pankaj Salazar MD MD cha Hall, Patricia, RN RN [facility] Gini Levy, RN RN vg1 Corrections: (The following items were deleted from the chart) 09:45 09:40 Chief complaint: EMS states: EMS called for possible diabetic issue and ph "shaking", upon arrival EMS found pt to be lethargic and appeared post-ictal, BGL 128, hx of IDDM and seizures, bradycardic w/ HR 45-50, other VS WNL, pt drowsy upon arrival to ED ph
[2021-09-23] MEDS ORDERED: POTASSIUM 25 MEQ EFFERV TAB ONE (11:21)
[2021-09-23 13:29] VITALS: O2SAT 99
[2021-09-23 13:30] VITALS: BP 116/86; TEMP 97.9
--- NOTE | 2021-09-25 09:43 | EKG ---
Test Date: 2021-09-23 Test Time: 09:31:20 Public Service Administrator: VASHTI MEASUREMENT RESULTS: Intervals: Rate: 58 WV: 146 QRSD: 94 QT: 408 QTc: 400 [place]: P: 59 WV: 146 QRS: 57 T: 63 INTERPRETIVE STATEMENTS: Sinus bradycardia with sinus arrhythmia Early repolarization Otherwise normal ECG Compared to ECG 09/11/2020 05:37:28 Early repolarization now present Sinus rhythm no longer present Electronically Signed On 09-25-21 09:36:12 CDT by Dio Giordano
== END 2021-09-23 11:28 | disposition home or self-care (01) ==
LOC: ER 09:39
DX: E10.649 Type 1 diabetes mellitus with hypoglycemia without coma (principal); Z79.4 Long term (current) use of insulin; R41.82 Altered mental status, unspecified; E87.6 Hypokalemia; T38.3X5A Adverse effect of insulin and oral hypoglycemic [antidiabetic] drugs, initial encounter
CPT/HCPCS: 36415; 80048; 80076; 80307; 80320; 80329; 81003; 82947; 85025; 85610; 85730; 93005; 96374; 99284; J1953

== ENCOUNTER 2024-01-22 10:15 | Observation (INO) | payer OTHER, SELFPAY ==
--- OUTSIDE RECORDS SUMMARY | 2024-01-22 10:18 | XMS REPORT | Continuity of Care Document ---
Author Name Unknown Address [address] [facility] [address] [place] [address] [facility] Address [address] [facility] [address] [place] [address] Care Team Providers Care Superintendent Laundry Name Role Phone Elise Bond Primary Care Physician Medications Ordered Medication Name Filled Medication Name Start Date Stop Date Current Medication? Ordering Clinician Indication Dosage Frequency Signature (SIG) Comments Components Source Novolog FlexPen U-100 Insulin aspart 100 unit/mL (3 mL) subcutaneou s 01-07 00:00: 00 Yes (3 mL) Han Mayer Toujeo Max U-300 SoloStar 300 unit/mL (3 mL) subcutaneou s insulin pen 01-07 00:00: 00 Yes (3 mL) Han Mayer simvastatin 40 mg tablet -24 00:00: 00 Yes 1mg Han Mayer glucose 4 gram chewable tablet -24 00:00: 00 Yes 3gram Han Mayer simvastatin 40 mg tablet -17 00:00: 00 Yes 1mg Han Mayer Novolog FlexPen U-100 Insulin aspart 100 unit/mL (3 mL) subcutaneou s -13 00:00: 00 Yes (3 mL) Han Mayer Toujeo Max U-300 SoloStar 300 unit/mL (3 mL) subcutaneou s insulin pen 09-27 00:00: 00 Yes (3 mL) Han Mayer glucose 4 gram chewable tablet 4-13 00:00: 00 Yes 3gram Han Mayer INJECT INSULIN UNDER THE SKIN THREE TIMES A DAY WITH MEALS PER SLIDING SCALE, MAX OF 50 UNITS PER DAY 0 2- 00:00: 00 10-29 00:00 :00 No 100 Han Mayer NOVOLOG F/P 100U/ML PEN 1 0-20 00:00: 00 Yes Han Mayer INJECT 40 UNITS BELOW THE SKIN AT NIGHT 1 0-20 00:00: 00 10-29 00:00 :00 No 300 Han Mayre NOVOLOG F/P 100U/ML PEN 0 7-24 00:00: 00 Yes [id number] Han Mayer INJECT 30 UNITS BELOW THE SKIN AT NIGHT 0 7-10 00:00: 00 10-29 00:00 :00 No 300 Han Mayer TRESIBA FLEX 200U/ML PEN 0 4-04 00:00: 00 Yes Han Mayer NOVOLOG F/P 100U/ML PEN 0 4-03 00:00: 00 Yes Han Mayer NOVOLOG FLEX REL INJ 0 3-31 00:00: 00 Yes Han Mayer INJECT 10 UNITS SUBCUTANEOU SLY ONCE DAILY 0 8-30 00:00: 00 Yes Han Mayer Toujeo SoloStar U-300 Insulin 300 unit/mL (1.5 mL) subcutaneou s pen 0 - 00:00: 00 Yes (1.5 mL) Han Mayer Novolin R Regular U-100 Insulin 100 unit/mL injection solution 0 7- 00:00: 00 Yes 5unit/m L Han Mayer Toujeo SoloStar U-300 Insulin 300 unit/mL (1.5 mL) subcutaneou s pen 0 - 00:00: 00 Yes (1.5 mL) Han Mayer Novolin R Regular U-100 Insulin 100 unit/mL injection solution 0 5- 00:00: 00 Yes 5unit/m L Han Mayer INJECT 10 UNITS SUBCUTANEOU SLY ONCE DAILY 0 - 00:00: 00 Yes Han [place] More[place] USE DIRECTED NASALLY NEEDED FOR SEVERE HYPOGLYCEMI A 0 4-26 00:00: 00 Yes Han San Moreno USE DIRECTED NEEDED FOR SEVERE HYPOGLYCEMI A. 4-18 00:00: 00 Yes Han Mayer Novolin R Regular U-100 Insulin 100 unit/mL injection solution 2020-06 1-29 00:00: 00 Yes 5unit/m L Han Mayer Toujeo SoloStar U-300 Insulin 300 unit/mL (1.5 mL) subcutaneou s pen 2020-06 1-29 00:00: 00 Yes (1.5 mL) Han Mayer Toujeo SoloStar U-300 Insulin 300 unit/mL (1.5 mL) subcutaneou s pen 2020-06 1-24 00:00: 00 Yes (1.5 mL) Han Mayer Novolin R Regular U-100 Insulin 100 unit/mL injection solution 2020-06 0-12 00:00: 00 Yes 5unit/m L Han Mayer Toujeo SoloStar U-300 Insulin 300 unit/mL (1.5 mL) subcutaneou s pen 2020-06 0-04 00:00: 00 Yes (1.5 mL) Han Mayer Toujeo SoloStar U-300 Insulin 300 unit/mL (1.5 mL) subcutaneou s pen 0 8-18 00:00: 00 Yes (1.5 mL) Han Mayer Toujeo SoloStar U-300 Insulin 300 unit/mL (1.5 mL) subcutaneou s pen 6-25 00:00: 00 Yes (1.5 mL) Han Mayer Toujeo SoloStar U-300 Insulin 300 unit/mL (1.5 mL) subcutaneou s pen 0 4-14 00:00: 00 Yes (1.5 mL) Han Mayer Novolin 70-30 FlexPen U-100 Insulin 100 unit/mL (70-30) subcutaneou s 4-14 00:00: 00 Yes 5unit/m L (70-30) Han Mayer Toujeo SoloStar U-300 Insulin 300 unit/mL (1.5 mL) subcutaneou s pen 0 4-07 00:00: 00 Yes (1.5 mL) Han Mayer lisinopril 2.5 mg tablet 318 00:00: 00 Yes 1mg Han Mayer Toucarmen SoloStar U-300 Insulin 300 unit/mL (1.5 mL) [facility] 317 00:00: 00 Yes (1.5 mL) Han Mayer Novolin 70-30 FlexPen U-100 Insulin 100 unit/mL (70-30) subcutane s 3 00:00: 00 Yes 5unit/m L (70-30) Han Mayer Toujeo SoloStar U-300 Insulin 300 unit/mL (1.5 mL) [facility] 208 00:00: 00 Yes (1.5 mL) Han Mayer Novolin 70-30 FlexPen U-100 Insulin 100 unit/mL (70-30) subcutane s 2 00:00: 00 Yes 10unit/ mL (70-30) Han Mayer Touneelo SoloStar U-300 Insulin 300 unit/mL (1.5 mL) subcutane s pen 2019-06 2- 00:00: 00 Yes (1.5 mL) Han Mayer Toujeo SoloStar U-300 Insulin 300 unit/mL (1.5 mL) subcutane s pen 2019-06 2 00:00: 00 Yes (1.5 mL) Han Mayer Novolin 70-30 FlexPen U-100 Insulin 100 unit/mL (70-30) [facility]-06 2 00:00: 00 Yes 10unit/ mL (70-30) Han Mayer Levemir FlexTouch U-100 Insulin 100 unit/mL (3 mL) [facility] 6 00:00: 00 Yes (3 mL) Han Jaswinder Moreno Immunizations Ordered Immunization Name Filled Immunization Name Date Status Comments Source Moderna COVID-19 Vaccine Moderna COVID-19 Vaccine 2020-11-07 00:00:00 Completed Han Jaswinder Moreno Moderna COVID-19 Vaccine Moderna COVID-19 Vaccine 2020-09-28 00:00:00 Completed Han Mayer Influenza, injectable Influenza, injectable 2016-04-06 00:00:00 Completed Han Mayer HPV, quadrivalent HPV, quadrivalent 2016-02-16 00:00:00 Completed Han Mayer HPV, quadrivalent HPV, quadrivalent 2015-10-12 00:00:00 Completed Han Mayer meningococcal MCV4P meningococcal MCV4P 00:00:00 Completed Han Mayer HPV9 HPV9 2015-08-09 00:00:00 Completed Han Mayer meningococcal MCV4P meningococcal MCV4P 00:00:00 Completed Han Mayer Tdap Tdap 2010-02-03 00:00:00 Completed Han Mayer MMR MMR 2000-08-19 00:00:00 Completed Han Mayer IPV IPV 2000-08-19 00:00:00 Completed Han Mayer DTaP, unspecified formul DTaP, unspecified formul 2000-08-19 00:00:00 Completed Han Mayer Hep B, adolescent or ped Hep B, adolescent or ped 1998-10-24 00:00:00 Completed Han Mayer Hep B, adolescent or ped Hep B, adolescent or ped 1998-07-11 00:00:00 Completed Han Mayer Hep B, adolescent or ped Hep B, adolescent or ped 1998-04-25 00:00:00 Completed Han Mayer Hib (HbOC) Hib (HbOC) 1998-04-25 00:00:00 Completed Han Mayer MMR MMR 1998-04-25 00:00:00 Completed Han Mayer DTaP, unspecified formul DTaP, unspecified formul 1998-04-25 00:00:00 Completed Han Mayer OPV OPV 1997-03-10 00:00:00 Completed Han Mayer DTaP, unspecified formul DTaP, unspecified formul 1997-03-10 00:00:00 Completed Han Mayer DTP DTP 1997-01-05 00:00:00 Completed Han Mayer OPV OPV 1997-01-05 00:00:00 Completed Han Mayer DTP DTP 1996 00:00:00 Completed Han Mayer OPV OPV 1996 00:00:00 Completed Han Mayer Vital Signs Vital Name Observation Time Observation Value Comments S ource BP Systolic 2024-01-08 17:55:00 108 mm[Hg] Step hen F Moreno BP Diastolic 2024-01-08 17:55:00 67 mm[Hg] Jose Miguel phen F Moreno Weight Measured 2024-01-08 17:55:00 181.20 pounds Han F Moreno Height Measured 2024-01-08 17:55:00 73.50 inches Han F Moreno Body Temperature 2024-01-08 17:55:00 97.40 degrees Han F Moreno Heart Rate 2024-01-08 17:55:00 80.00 /min Carmella en F Moreno Respiratory Rate 2024-01-08 17:55:00 19.00 /min Han F Moreno BP Systolic 2023-10-09 15:42:00 110 mm[Hg] Step hen F Moreno BP Diastolic 2023-10-09 15:42:00 80 mm[Hg] Jose Miguel phen F Moreno Weight Measured 2023-10-09 15:42:00 194.00 pounds Han F Moreno Height Measured 2023-10-09 15:42:00 73.50 inches Han F Moreno Body Temperature 2023-10-09 15:42:00 98.90 degrees Han F Moreno Heart Rate 2023-10-09 15:42:00 65.00 /min Carmella en F Moreno Respiratory Rate 2023-10-09 15:42:00 18.00 /min Han F Moreno BP Systolic 2023-09-28 14:37:00 154 mm[Hg] Step hen F Moreno BP Diastolic 2023-09-28 14:37:00 101 mm[Hg] Jose Miguel phen F Moreno Weight Measured 2023-09-28 14:37:00 186.40 pounds Han F Moreno Height Measured 2023-09-28 14:37:00 73.50 inches Han F Moreno Body Temperature 2023-09-28 14:37:00 98.20 degrees Han F Moreno Heart Rate 2023-09-28 14:37:00 66.00 /min Carmella en F Moreno Respiratory Rate 2023-09-28 14:37:00 18.00 /min Han F Moreno BP Systolic 2023-04-06 10:18:00 106 mm[Hg] Step hen F Moreno BP Diastolic 2023-04-06 10:18:00 68 mm[Hg] Jose Miguel phen F Moreno Weight Measured 2023-04-06 10:18:00 Han F Moreno Height Measured 2023-04-06 10:18:00 Han F Moreno Body Temperature 2023-04-06 10:18:00 98.50 degrees Han F Moreno Heart Rate 2023-04-06 10:18:00 61.00 /min Carmella en F Moreno Respiratory Rate 2023-04-06 10:18:00 Han F Moreno BP Systolic 2023-04-05 11:34:00 102 mm[Hg] Step hen F Moreno BP Diastolic 2023-04-05 11:34:00 64 mm[Hg] Jose Miguel phen F Moreno Weight Measured 2023-04-05 11:34:00 179.00 pounds Han F Moreno Height Measured 2023-04-05 11:34:00 73.50 inches Han F Moreno Body Temperature 2023-04-05 11:34:00 98.40 degrees Han F Moreno Heart Rate 2023-04-05 11:34:00 75.00 /min Carmella en F Moreno Respiratory Rate 2023-04-05 11:34:00 18.00 /min Han F Moreno BP Systolic 2022-12-25 09:20:00 119 mm[Hg] Step hen F Moreno BP Diastolic 2022-12-25 09:20:00 79 mm[Hg] Jose Miguel phen F Moreno Weight Measured 2022-12-25 09:20:00 187.20 pounds Han F Omreno Height Measured 2022-12-25 09:20:00 73.50 inches Han F Moreno Body Temperature 2022-12-25 09:20:00 Han F Moreno Heart Rate 2022-12-25 09:20:00 73.00 /min Carmella en F Moreno Respiratory Rate 2022-12-25 09:20:00 Han F Moreno BP Systolic 2022-12-24 17:40:00 121 mm[Hg] Step hen F Moreno BP Diastolic 2022-12-24 17:40:00 80 mm[Hg] Jose Miguel phen F Moreno Weight Measured 2022-12-24 17:40:00 187.20 pounds Han F Moreno Height Measured 2022-12-24 17:40:00 73.50 inches Han F Moreno Body Temperature 2022-12-24 17:40:00 98.00 degrees Han F Moreno Heart Rate 2022-12-24 17:40:00 69.00 /min Carmella en F Moreno Respiratory Rate 2022-12-24 17:40:00 Han F Moreno BP Systolic 2021-11-14 14:05:00 112 mm[Hg] Step hen F Moreno BP Diastolic 2021-11-14 14:05:00 70 mm[Hg] Jose Miguel phen F Moreno Weight Measured 2021-11-14 14:05:00 182.00 pounds Han F Moreno Height Measured 2021-11-14 14:05:00 73.50 inches Han F Moreno Body Temperature 2021-11-14 14:05:00 98.00 degrees Han F Moreno Heart Rate 2021-11-14 14:05:00 76.00 /min Carmella en F Moreno Respiratory Rate 2021-11-14 14:05:00 16.00 /min Han F Moreno BP Systolic 2021-06-22 15:19:00 101 mm[Hg] Step hen F Moreno BP Diastolic 2021-06-22 15:19:00 68 mm[Hg] Jose Miguel phen F Moreno Weight Measured 2021-06-22 15:19:00 200.20 pounds Han F Moreno Height Measured 2021-06-22 15:19:00 73.50 inches Han F Moreno Body Temperature 2021-06-22 15:19:00 98.20 degrees Han F Moreno Heart Rate 2021-06-22 15:19:00 74.00 /min Carmella en F Moreno Respiratory Rate 2021-06-22 15:19:00 21.00 /min Han F Moreno BP Systolic 2021-03-21 10:08:00 103 mm[Hg] Step hen F Moreno BP Diastolic 2021-03-21 10:08:00 66 mm[Hg] Jose Miguel phen F Moreno Weight Measured 2021-03-21 10:08:00 167.60 pounds Han F Moreno Height Measured 2021-03-21 10:08:00 73.50 inches Han F Moreno Body Temperature 2021-03-21 10:08:00 97.80 degrees Han F Moreno Heart Rate 2021-03-21 10:08:00 77.00 /min Carmella en F Moreno Respiratory Rate 2021-03-21 10:08:00 Han Mayer BP Systolic 2020-12-26 14:41:00 122 mm[Hg] Jim Mayer BP Diastolic 2020-12-26 14:41:00 74 mm[Hg] Jose Miguel Mayer Weight Measured 2020-12-26 14:41:00 183.40 pounds Han Mayer Height Measured 2020-12-26 14:41:00 73.50 inches Han Mayer Body Temperature 2020-12-26 14:41:00 97.40 degrees Han Mayer Heart Rate 2020-12-26 14:41:00 80.00 /min Carmella Mayer Respiratory Rate 2020-12-26 14:41:00 16.00 /min Han Mayer Encounters Start Date/Time End Date/Time Encounter Type Admission Type Attending [facility] Care Department Encounter ID Source 2024-01-22 09:04:11 2024-01-22 09:04:11 Outpatient S[facility] S[facility] [id number] Han Mayer 2024-01-08 17:43:30 2024-01-08 17:43:30 Outpatient SFA SFA [id number] Han Mayer 2024-01-08 00:00:00 2024-01-08 00:00:00 Outpatient Visit SFA [id number] Han Mayer 2023-10-09 15:19:07 2023-10-09 15:19:07 Outpatient SFA SFA [id number] Han Mayer 2023-10-09 00:00:00 2023-10-09 00:00:00 Outpatient Visit SFA [id number] Han Mayer 2023-09-28 14:33:08 2023-09-28 14:33:08 Outpatient SFA SFA [id number] Han Mayer 2023-04-12 11:38:21 2023-04-12 11:38:21 Outpatient SFA SFA [id number] Han Mayer 2023-04-06 10:02:36 2023-04-06 10:02:36 Outpatient [facility] [id number] Han Mayer 2023-04-05 11:23:58 2023-04-05 11:23:58 Outpatient [facility] [id number] Han Mayer 2022-12-25 09:16:58 2022-12-25 09:16:58 Outpatient [facility] [id number] Han Mayer 2022-12-24 17:34:28 2022-12-24 17:34:28 Outpatient [facility] [id number] Han Mayer Results Test Description Test Time Test Comments Results Result Co mments Source COMPREHENSIVE METABOLIC [id number] 01:15:45* Test Item Value Reference Range Interpretation Comme nts GLUCOSE (test code = 221) 506 MG/DL 70-99 HH RESULTS RECHECKE D AND VERIFIED BUN (test code = 220) 16 MG/DL 6-20 CREATININE (test code = 2214) 0.96 MG/DL 0.80-1.40 eGFR (2020 CKD-EPI) (test code = 37423) 111 ML/MIN/1.73 >60 CALC BUN/CREAT (test code = 2235) 17 RATIO 6-28 SODIUM (test code = 2231) 135 MEQ/L 133-146 POTASSIUM (test code = 2228) 4.6 MEQ/L 3.5-5.4 CHLORIDE (test code = 2215) 93 MEQ/L 95-107 L CARBON DIOXIDE (test code = 2206) 26 MEQ/L 19-31 CALCIUM (test code = 2209) 9.2 MG/DL 8.5-10.5 PROTEIN, TOTAL (test code = 2229) 6.8 G/DL 6.1-8.3 ALBUMIN (test code = 2201) 4.4 G/DL 3.5-5.2 CALC GLOBULIN (test code = 2240) 2.4 G/DL 1.9-3.7 CALC A/G RATIO (test code = 2234) 1.8 RATIO 1.0-2.6 BILIRUBIN, TOTAL (test code = 2207) 0.4 MG/DL <=1.2 ALKALINE PHOSPHATASE (test code = 2204) 87 U/L 40-115 AST (test code = 2218) 25 U/L 9-50 ALT (test code = 2219) 30 U/L 5-50 UNLESS OTHERWISE INDICATED, ALL TESTING PERFORMED AT [facility] [address] [place] [address] MANAGER COSMETIC: David NEVAREZIA NUMBER [id number] [facility]. [id number] LIPID [id number] 00:00:00* Test Item Value Reference Range Interpretation Comme nts CHOLESTEROL (test code = 2210) 194 MG/DL TRIGLYCERIDES (test code = 2232) 132 MG/DL HDL CHOLESTEROL (test code = 2220) 59 MG/DL CALC LDL CHOL (test code = 2237) 110 MG/DL RISK RATIO LDL/HDL (test cod e = 2238) 1.86 RATIO Han San MorenoCOMPREHENSIVE METABOLIC [id number] 00:00:00* Test Item Value Reference Range Interpretation Comme nts GLUCOSE (test code = 2217) 506 MG/DL BUN (test code = 2208) 16 MG/DL CREATININE (test code = 2214) 0.96 MG/DL eGFR (2020 CKD-EPI) (test code = 22916) 111 ML/MIN/1.73 CALC BUN/CREAT (test code = 2235) 17 RATIO SODIUM (test code = 2231) 135 MEQ/L POTASSIUM (test code = 2228) 4.6 MEQ/L CHLORIDE (test code = 2215) 93 MEQ/L CARBON DIOXIDE (test code = 2206) 26 MEQ/L CALCIUM (test code = 2209) 9.2 MG/DL PROTEIN, TOTAL (test code = 2229) 6.8 G/DL ALBUMIN (test code = 2201) 4.4 G/DL CALC GLOBULIN (test code = 2240) 2.4 G/DL CALC A/G RATIO (test code = 2234) 1.8 RATIO BILIRUBIN, TOTAL (test code = 2207) 0.4 MG/DL ALKALINE PHOSPHATASE (test code = 2204) 87 U/L AST (test code = 2218) 25 U/L ALT (test code = 2219) 30 U/L Han MayerLIPID [id number] 00:00:00* Test Item Value Reference Range Interpretation Comme nts CHOLESTEROL (test code = 2210) 194 MG/DL TRIGLYCERIDES (test code = 2232) 132 MG/DL HDL CHOLESTEROL (test code = 2220) 59 MG/DL CALC LDL CHOL (test code = 2237) 110 MG/DL RISK RATIO LDL/HDL (test cod e = 2238) 1.86 RATIO Han MayerCOMPREHENSIVE METABOLIC [id number] 00:00:00* Test Item Value Reference Range Interpretation Comme nts GLUCOSE (test code = 2217) 506 MG/DL BUN (test code = 2208) 16 MG/DL CREATININE (test code = 2214) 0.96 MG/DL eGFR (2020 CKD-EPI) (test code = 06772) 111 ML/MIN/1.73 CALC BUN/CREAT (test code = 2235) 17 RATIO SODIUM (test code = 2231) 135 MEQ/L POTASSIUM (test code = 2228) 4.6 MEQ/L CHLORIDE (test code = 2215) 93 MEQ/L CARBON DIOXIDE (test code = 2206) 26 MEQ/L CALCIUM (test code = 2209) 9.2 MG/DL PROTEIN, TOTAL (test code = 2229) 6.8 G/DL ALBUMIN (test code = 2201) 4.4 G/DL CALC GLOBULIN (test code = 2240) 2.4 G/DL CALC A/G RATIO (test code = 2234) 1.8 RATIO BILIRUBIN, TOTAL (test code = 2207) 0.4 MG/DL ALKALINE PHOSPHATASE (test code = 2204) 87 U/L AST (test code = 2218) 25 U/L ALT (test code = 2219) 30 U/L Han MayerHEMOGLOBIN [id number] 12:30:56* Test Item Value Reference Range Interpretation Comme [facility] HEMOGLOBIN A1c (test code = 43180) 14.2 % 4.2-5.6 H [employer] GUIDELINES FOR HGB A1C: PREDIABETES/INCREASED RISK . . . . . . . 5.7-6.4% DIAGNOSIS OF DIABETES . . . . . . . . . >=6.5% WITH CONFIRMATION OR APPROPRIATE SYMPTOMS NOTE: ASSAY MAY BE AFFECTED BY HEMOGLOBINOPATHIES (SICKLE CELL ANEMIA, S-C DISEASE, OTHERS) OR ARTIFICIALLY LOWERED BY DECREASED RED CELL SURVIVAL (HEMOLYTIC ANEMIAS, BLOOD LOSS, ETC.). CONSIDER ALTERNATE TESTING OR LABORATORY CONSULTATION. HEMOGLOBIN [id number] 00:00:00* Test Item Value Reference Range Interpretation Comme nts HEMOGLOBIN A1c (test code = 39720) 14.2 % Han MayerHEMOGLOBIN [id number] 00:00:00* Test Item Value Reference Range Interpretation Commron acosta HEMOGLOBIN A1c (test code = 88430) 14.2 % Han MayerCOMPREHENSIVE METABOLIC [id number] 00:18:36* Test Item Value Reference Range Interpretation Comme dave GLUCOSE (test code = 2216) 190 MG/DL 70-99 H BUN (test code = 2207) 15 MG/DL 6-20 CREATININE (test code = 2213) 0.73 MG/DL 0.80-1.40 L eGFR (2020 CKD-EPI) (test code = 08679) 129 ML/MIN/1.73 >60 CALC BUN/CREAT (test code = 2234) 21 RATIO 6-28 SODIUM (test code = 223) 140 MEQ/L 133-146 POTASSIUM (test code = 2228) 4.1 MEQ/L 3.5-5.4 CHLORIDE (test code = 5) 100 MEQ/L 95-107 CARBON DIOXIDE (test code = 2206) 30 MEQ/L 19-31 CALCIUM (test code = 2209) 9.5 MG/DL 8.5-10.5 PROTEIN, TOTAL (test code = 222) 6.6 G/DL 6.1-8.3 ALBUMIN (test code = 2201) 4.3 G/DL 3.5-5.2 CALC GLOBULIN (test code = 2240) 2.3 G/DL 1.9-3.7 CALC A/G RATIO (test code = 2233) 1.9 RATIO 1.0-2.6 BILIRUBIN, TOTAL (test code = 2207) 0.5 MG/DL <=1.2 ALKALINE PHOSPHATASE (test code = 2204) 73 U/L 40-115 AST (test code = 2218) 20 U/L 9-50 ALT (test code = 2219) 25 U/L 5-50 LIPID [id number] 00:18:36* Test Item Value Reference Range Interpretation Comme nts CHOLESTEROL (test code = 0) 130 MG/DL <200 TRIGLYCERIDES (test code = 2232) 29 MG/DL <150 HDL CHOLESTEROL (test code = 222) 64 MG/DL >39 CALC LDL CHOL (test code = 2237) 58 MG/DL <100 NOTE: CALCULATED LDL IS BASED ON JESSICA-LEVY METHOD WHICHINCLUDES ADJUSTABLE TRIGLYCERIDE:VLDL CHOLESTEROL RATIO.THIS FACTOR VARIES BY MEASURED TRIGLYCERIDE AND NON-HDLCHOLESTEROL CONCENTRATIONS WITH INCREASED CALCULATED LDL SEENIN HIGHER TRIGLYCERIDE OR LOWER NON-HDL SPECIMENS. FOR MOREINFORMATION, SEE CLIENT ANNOUNCEMENT AT [email or web address] RISK RATIO LDL/HDL (test code = 2238) 0.91 RATIO <3.55 UNLESS OTHERW ISE INDICATED, ALL TESTING PERFORMED AT [facility] [address] [place] [address] MANAGER COSMETIC: RICHIE DIMAS M.D. CLIA NUMBER [id number] [facility] [place] [id number] COMPREHENSIVE METABOLIC [id number] 00:00:00* Test Item Value Reference Range Interpretation Comme nts GLUCOSE (test code = 2217) 190 MG/DL BUN (test code = 2208) 15 MG/DL CREATININE (test code = 2214) 0.73 MG/DL eGFR (2020 CKD-EPI) (test code = 24984) 129 ML/MIN/1.73 CALC BUN/CREAT (test code = 2235) 21 RATIO SODIUM (test code = 2231) 140 MEQ/L POTASSIUM (test code = 2228) 4.1 MEQ/L CHLORIDE (test code = 2215) 100 MEQ/L CARBON DIOXIDE (test code = 2206) 30 MEQ/L CALCIUM (test code = 2209) 9.5 MG/DL PROTEIN, TOTAL (test code = 2229) 6.6 G/DL ALBUMIN (test code = 2201) 4.3 G/DL CALC GLOBULIN (test code = 2240) 2.3 G/DL CALC A/G RATIO (test code = 2234) 1.9 RATIO BILIRUBIN, TOTAL (test code = 2207) 0.5 MG/DL ALKALINE PHOSPHATASE (test code = 2204) 73 U/L AST (test code = 2218) 20 U/L ALT (test code = 2219) 25 U/L Han MayerLIPID [id number] 00:00:00* Test Item Value Reference Range Interpretation Comme nts CHOLESTEROL (test code = 2210) 130 MG/DL TRIGLYCERIDES (test code = 2232) 29 MG/DL HDL CHOLESTEROL (test code = 2220) 64 MG/DL CALC LDL CHOL (test code = 2237) 58 MG/DL RISK RATIO LDL/HDL (test cod e = 2238) 0.91 RATIO Han MayerCOMPREHENSIVE METABOLIC [id number] 00:00:00* Test Item Value Reference Range Interpretation Comme nts GLUCOSE (test code = 2217) 190 MG/DL BUN (test code = 2208) 15 MG/DL CREATININE (test code = 2214) 0.73 MG/DL eGFR (2020 CKD-EPI) (test code = 86121) 129 ML/MIN/1.73 CALC BUN/CREAT (test code = 2235) 21 RATIO SODIUM (test code = 2231) 140 MEQ/L POTASSIUM (test code = 2228) 4.1 MEQ/L CHLORIDE (test code = 2215) 100 MEQ/L CARBON DIOXIDE (test code = 2206) 30 MEQ/L CALCIUM (test code = 2209) 9.5 MG/DL PROTEIN, TOTAL (test code = 2229) 6.6 G/DL ALBUMIN (test code = 2201) 4.3 G/DL CALC GLOBULIN (test code = 2240) 2.3 G/DL CALC A/G RATIO (test code = 2234) 1.9 RATIO BILIRUBIN, TOTAL (test code = 2207) 0.5 MG/DL ALKALINE PHOSPHATASE (test code = 2204) 73 U/L AST (test code = 2218) 20 U/L ALT (test code = 2219) 25 U/L Han MayerLIPID [id number] 00:00:00* Test Item Value Reference Range Interpretation Comme nts CHOLESTEROL (test code = 2210) 130 MG/DL TRIGLYCERIDES (test code = 2232) 29 MG/DL HDL CHOLESTEROL (test code = 2220) 64 MG/DL CALC LDL CHOL (test code = 2237) 58 MG/DL RISK RATIO LDL/HDL (test cod e = 2238) 0.91 RATIO Han MayerHEMOGLOBIN [id number] 11:03:11* Test Item Value Reference Range Interpretation Comme nts HEMOGLOBIN A1c (test code = 55648) 12.8 % 4.2-5.6 H [employer] GUIDELINES FOR HGB A1C: PREDIABETES/INCREASED RISK . . . . . . . 5.7-6.4% DIAGNOSIS OF DIABETES . . . . . . . . . >=6.5% WITH CONFIRMATION OR APPROPRIATE SYMPTOMS NOTE: ASSAY MAY BE AFFECTED BY HEMOGLOBINOPATHIES (SICKLE CELL ANEMIA, S-C DISEASE, OTHERS) OR ARTIFICIALLY LOWERED BY DECREASED RED CELL SURVIVAL (HEMOLYTIC ANEMIAS, BLOOD LOSS, ETC.). CONSIDER ALTERNATE TESTING OR LABORATORY CONSULTATION. HEMOGLOBIN [id number] 00:00:00* Test Item Value Reference Range Interpretation Comme dave HEMOGLOBIN A1c (test code = 86421) 12.8 % Han MayerHEMOGLOBIN [id number] 00:00:00* Test Item Value Reference Range Interpretation Comme dave HEMOGLOBIN A1c (test code = 89151) 12.8 % [place] [id number] 00:00:00* Test Item Value Reference Range Interpretation Comme nts CHOLESTEROL (test code = 2210) 175 MG/DL TRIGLYCERIDES (test code = 2232) 36 MG/DL HDL CHOLESTEROL (test code = 2220) 67 MG/DL CALC LDL CHOL (test code = 2237) 97 MG/DL RISK RATIO LDL/HDL (test cod e = 2238) 1.45 RATIO Han MayerCOMPREHENSIVE METABOLIC [id number] 00:00:00* Test Item Value Reference Range Interpretation Comme nts GLUCOSE (test code = 2217) 128 MG/DL BUN (test code = 2208) 18 MG/DL CREATININE (test code = 2214) 0.77 MG/DL eGFR (2020 CKD-EPI) (test code = 64876) 127 ML/MIN/1.73 CALC BUN/CREAT (test code = 2235) 23 RATIO SODIUM (test code = 2231) 138 MEQ/L POTASSIUM (test code = 2228) 3.8 MEQ/L CHLORIDE (test code = 2215) 97 MEQ/L CARBON DIOXIDE (test code = 2206) 31 MEQ/L CALCIUM (test code = 2209) 9.6 MG/DL PROTEIN, TOTAL (test code = 2229) 7.0 G/DL ALBUMIN (test code = 2201) 4.5 G/DL CALC GLOBULIN (test code = 2240) 2.5 G/DL CALC A/G RATIO (test code = 2234) 1.8 RATIO BILIRUBIN, TOTAL (test code = 2207) 0.6 MG/DL ALKALINE PHOSPHATASE (test code = 2204) 84 U/L AST (test code = 2218) 21 U/L ALT (test code = 2219) 30 U/L Han MayerALBUMIN/CREATININE RATIO, RANDOM [id number] 00:00:00* Test Item Value Reference Range Interpretation Comme nts CREATININE, URINE, CONC. (te st code = 2072) 163.7 MG/DL ALBUMIN, URINE, RANDOM (test code = 48858) 3.4 MG/DL CALC ALBUMIN/CREAT, RND (arron t code = 79117) 21 MG/G Han MayerCBC W/AUTO [id number] 00:00:00* Test Item Value Reference Range Interpretation Comme nts WBC (test code = 1001) 4.7 K/UL RBC (test code = 1002) 6.24 M/UL HEMOGLOBIN (test code = 1003) 17.1 G/DL HEMATOCRIT (test code = 1004) 51.8 % MCV (test code = 1005) 83.0 fL MCH (test code = 1006) 27.4 PG MCHC (test code = 1007) 33.0 G/DL RDW (test code = 1038) 12.3 % NEUTROPHILS (test code = 1008) 36.2 % LYMPHOCYTES (test code = 1010) 52.0 % MONOCYTES (test code = 1011) 6.2 % EOSINOPHILS (test code = 1012) 4.5 % BASOPHILS (test code = 1013) 1.1 % IMMATURE GRANULOCYTES (test code = 1036) 0.0 % NUCLEATED RBCS (test code = 1065) 0.0 /100WBC'S PLATELET COUNT (test code = 1015) 177 K/UL ABSOLUTE NEUTROPHILS (test c ode = 1066) 1.69 K/UL ABSOLUTE LYMPHOCYTES (test c ode = 1067) 2.43 K/UL ABSOLUTE MONOCYTES (test cod e = 1068) 0.29 K/UL ABSOLUTE EOSINOPHILS (test c ode = 1040) 0.21 K/UL ABSOLUTE BASOPHILS (test cod e = 1069) 0.05 K/UL ABS IMMATURE GRANULOCYTES (t est code = 1020) 0.00 K/UL ABS NUCLEATED RBCS (test cod e = 42439) 0.00 K/UL Han MayerHEMOGLOBIN [id number] 00:00:00* Test Item Value Reference Range Interpretation Comme nts HEMOGLOBIN A1c (test code = 01154) 13.5 % Han MayerLIPID [id number] 00:00:00* Test Item Value Reference Range Interpretation Comme nts CHOLESTEROL (test code = 2210) 175 MG/DL TRIGLYCERIDES (test code = 2232) 36 MG/DL HDL CHOLESTEROL (test code = 2220) 67 MG/DL CALC LDL CHOL (test code = 2237) 97 MG/DL RISK RATIO LDL/HDL (test cod e = 2238) 1.45 RATIO Han MayerCOMPREHENSIVE METABOLIC [id number] 00:00:00* Test Item Value Reference Range Interpretation Comme nts GLUCOSE (test code = 2217) 128 MG/DL BUN (test code = 2208) 18 MG/DL CREATININE (test code = 2214) 0.77 MG/DL eGFR (2020 CKD-EPI) (test code = 81617) 127 ML/MIN/1.73 CALC BUN/CREAT (test code = 2235) 23 RATIO SODIUM (test code = 2231) 138 MEQ/L POTASSIUM (test code = 2228) 3.8 MEQ/L CHLORIDE (test code = 2215) 97 MEQ/L CARBON DIOXIDE (test code = 2206) 31 MEQ/L CALCIUM (test code = 2209) 9.6 MG/DL PROTEIN, TOTAL (test code = 2229) 7.0 G/DL ALBUMIN (test code = 2201) 4.5 G/DL CALC GLOBULIN (test code = 2240) 2.5 G/DL CALC A/G RATIO (test code = 2234) 1.8 RATIO BILIRUBIN, TOTAL (test code = 2207) 0.6 MG/DL ALKALINE PHOSPHATASE (test code = 2204) 84 U/L AST (test code = 2218) 21 U/L ALT (test code = 2219) 30 U/L Han MayerALBUMIN/CREATININE RATIO, RANDOM [id number] 00:00:00* Test Item Value Reference Range Interpretation Comme dave CREATININE, URINE, CONC. (te st code = 2072) 163.7 MG/DL ALBUMIN, URINE, RANDOM (test code = 19627) 3.4 MG/DL CALC ALBUMIN/CREAT, RND (arron t code = 98766) 21 MG/G Han MayerCBC W/AUTO [id number] 00:00:00* Test Item Value Reference Range Interpretation Comme nts WBC (test code = 1001) 4.7 K/UL RBC (test code = 1002) 6.24 M/UL HEMOGLOBIN (test code = 1003) 17.1 G/DL HEMATOCRIT (test code = 1004) 51.8 % MCV (test code = 1005) 83.0 fL MCH (test code = 1006) 27.4 PG MCHC (test code = 1007) 33.0 G/DL RDW (test code = 1038) 12.3 % NEUTROPHILS (test code = 1008) 36.2 % LYMPHOCYTES (test code = 1010) 52.0 % MONOCYTES (test code = 1011) 6.2 % EOSINOPHILS (test code = 1012) 4.5 % BASOPHILS (test code = 1013) 1.1 % IMMATURE GRANULOCYTES (test code = 1036) 0.0 % NUCLEATED RBCS (test code = 1065) 0.0 /100WBC'S PLATELET COUNT (test code = 1015) 177 K/UL ABSOLUTE NEUTROPHILS (test c ode = 1066) 1.69 K/UL ABSOLUTE LYMPHOCYTES (test c ode = 1067) 2.43 K/UL ABSOLUTE MONOCYTES (test cod e = 1068) 0.29 K/UL ABSOLUTE EOSINOPHILS (test c ode = 1040) 0.21 K/UL ABSOLUTE BASOPHILS (test cod e = 1069) 0.05 K/UL ABS IMMATURE GRANULOCYTES (t est code = 1020) 0.00 K/UL ABS NUCLEATED RBCS (test cod e = 09575) 0.00 K/UL [place] AustinHEMOGLOBIN [id number] 00:00:00* Test Item Value Reference Range Interpretation Comme nts HEMOGLOBIN A1c (test code = 68361) 13.5 % Han F AustinHEMOGLOBIN [id number] 00:00:00* Test Item Value Reference Range Interpretation Comme nts HEMOGLOBIN A1c (test code = 48332) 14.1 % Han F AustinHEMOGLOBIN [id number] 00:00:00* Test Item Value Reference Range Interpretation Comme nts HEMOGLOBIN A1c (test code = 16278) 14.1 % Han F AustinHEMOGLOBIN [id number] 00:00:00* Test Item Value Reference Range Interpretation Comme nts HEMOGLOBIN A1c (test code = 64273) 11.7 % Han [place] AustinMICROALBUMIN/CREATININE, RANDOM AND [id number] 00:00:00* Test Item Value Reference Range Interpretation Comme nts CREATININE, URINE, CONC. (te st code = 2071) 28.7 MG/DL ALBUMIN, URINE, RANDOM (test code = 87278) <0.2 MG/DL CALC ALBUMIN/CREAT, RND (arron t code = 08530) <7 MG/G [place] AustinHEMOGLOBIN [id number] 00:00:00* Test Item Value Reference Range Interpretation Comme nts HEMOGLOBIN A1c (test code = 43284) 11.7 % [place] AustinMICROALBUMIN/CREATININE, RANDOM AND [id number] 00:00:00* Test Item Value Reference Range Interpretation Comme nts CREATININE, URINE, CONC. (te st code = 2071) 28.7 MG/DL ALBUMIN, URINE, RANDOM (test code = 99390) <0.2 MG/DL CALC ALBUMIN/CREAT, RND (arron t code = 36974) <7 MG/G [place] AustinMICROALBUMIN/CREATININE, RANDOM AND [id number] 00:00:00* Test Item Value Reference Range Interpretation Comme nts CREATININE, URINE, CONC. (te st code = 2071) 60.1 MG/DL ALBUMIN, URINE, RANDOM (test code = 96127) 8.5 MG/DL CALC ALBUMIN/CREAT, RND (arron t code = 37706) 141 MG/G Han MayerCBC W/AUTO [id number] 00:00:00* Test Item Value Reference Range Interpretation Comme nts WBC (test code = 1001) 6.2 K/UL RBC (test code = 1002) 5.85 M/UL HEMOGLOBIN (test code = 1003) 16.6 G/DL HEMATOCRIT (test code = 1004) 47.9 % MCV (test code = 1005) 81.9 fL MCH (test code = 1006) 28.4 PG MCHC (test code = 1007) 34.7 G/DL RDW (test code = 1038) 12.1 % NEUTROPHILS (test code = 1008) 70.4 % LYMPHOCYTES (test code = 1010) 20.8 % MONOCYTES (test code = 1011) 6.1 % EOSINOPHILS (test code = 1012) 2.1 % BASOPHILS (test code = 1013) 0.6 % PLATELET COUNT (test code = 1015) 155 K/UL Han MayerHEMOGLOBIN [id number] 00:00:00* Test Item Value Reference Range Interpretation Comme dave HEMOGLOBIN A1c (test code = 34430) 8.9 % Han MayerCOMPREHENSIVE METABOLIC [id number] 00:00:00* Test Item Value Reference Range Interpretation Comme nts GLUCOSE (test code = 2217) 47 MG/DL BUN (test code = 2208) 13 MG/DL CREATININE (test code = 2214) 1.03 MG/DL eGFR AMER. (test cod e = 18502) 117 ML/MIN/1.73 eGFR NON- AMER. (test code = 39678) 101 ML/MIN/1.73 CALC BUN/CREAT (test code = 2235) 13 RATIO SODIUM (test code = 2231) 145 MEQ/L POTASSIUM (test code = 2228) 4.0 MEQ/L CHLORIDE (test code = 2215) 102 MEQ/L CARBON DIOXIDE (test code = 2206) 33 MEQ/L CALCIUM (test code = 2209) 9.7 MG/DL PROTEIN, TOTAL (test code = 2229) 7.5 G/DL ALBUMIN (test code = 2201) 4.7 G/DL CALC GLOBULIN (test code = 2240) 2.8 G/DL CALC A/G RATIO (test code = 2234) 1.7 RATIO BILIRUBIN, TOTAL (test code = 2207) 0.2 MG/DL ALKALINE PHOSPHATASE (test code = 2204) 59 U/L AST (test code = 2218) 16 U/L ALT (test code = 2219) 17 U/L Han MayerMICROALBUMIN/CREATININE, RANDOM AND [id number] 00:00:00* Test Item Value Reference Range Interpretation Comme dave CREATININE, URINE, CONC. (te st code = 2072) 60.1 MG/DL ALBUMIN, URINE, RANDOM (test code = 71443) 8.5 MG/DL CALC ALBUMIN/CREAT, RND (arron t code = 38773) 141 MG/G Han MayerCBC W/AUTO [id number] 00:00:00* Test Item Value Reference Range Interpretation Comme nts WBC (test code = 1001) 6.2 K/UL RBC (test code = 1002) 5.85 M/UL HEMOGLOBIN (test code = 1003) 16.6 G/DL HEMATOCRIT (test code = 1004) 47.9 % MCV (test code = 1005) 81.9 fL MCH (test code = 1006) 28.4 PG MCHC (test code = 1007) 34.7 G/DL RDW (test code = 1038) 12.1 % NEUTROPHILS (test code = 1008) 70.4 % LYMPHOCYTES (test code = 1010) 20.8 % MONOCYTES (test code = 1011) 6.1 % EOSINOPHILS (test code = 1012) 2.1 % BASOPHILS (test code = 1013) 0.6 % PLATELET COUNT (test code = 1015) 155 K/UL Han MayerHEMOGLOBIN [id number] 00:00:00* Test Item Value Reference Range Interpretation Comme nts HEMOGLOBIN A1c (test code = 36886) 8.9 % Han MayerCOMPREHENSIVE METABOLIC [id number] 00:00:00* Test Item Value Reference Range Interpretation Comme nts GLUCOSE (test code = 2217) 47 MG/DL BUN (test code = 2208) 13 MG/DL CREATININE (test code = 2214) 1.03 MG/DL eGFR AMER. (test cod e = 81965) 117 ML/MIN/1.73 eGFR NON- AMER. (test code = 48657) 101 ML/MIN/1.73 CALC BUN/CREAT (test code = 2235) 13 RATIO SODIUM (test code = 2231) 145 MEQ/L POTASSIUM (test code = 2228) 4.0 MEQ/L CHLORIDE (test code = 2215) 102 MEQ/L CARBON DIOXIDE (test code = 2206) 33 MEQ/L CALCIUM (test code = 2209) 9.7 MG/DL PROTEIN, TOTAL (test code = 2229) 7.5 G/DL ALBUMIN (test code = 2201) 4.7 G/DL CALC GLOBULIN (test code = 2240) 2.8 G/DL CALC A/G RATIO (test code = 2234) 1.7 RATIO BILIRUBIN, TOTAL (test code = 2207) 0.2 MG/DL ALKALINE PHOSPHATASE (test code = 2204) 59 U/L AST (test code = 2218) 16 U/L ALT (test code = 2219) 17 U/L Han [place] AustinCOMPREHENSIVE METABOLIC [id number] 00:00:00* Test Item Value Reference Range Interpretation Comme nts GLUCOSE (test code = 2217) TEST NOT PERFORMED MG/DL BUN (test code = 2208) TEST NOT PERFORME D MG/DL CREATININE (test code = 2214) TEST NOT PERFORMED MG/DL eGFR AMER. (test code = 65035) TEST NOT PERFORMED ML/MIN/1.73 eGFR NON- AMER. (test code = 58430) TEST NOT PERFORMED ML/MIN/1.73 CALC BUN/CREAT (test code = 2235) TEST NOT PERFORMED RATIO SODIUM (test code = 2231) TEST NOT PERFORMED MEQ/L POTASSIUM (test code = 2228) TEST NOT PERFORMED MEQ/L CHLORIDE (test code = 2215) TEST NOT PERFORMED MEQ/L CARBON DIOXIDE (test code = 2206) TEST NOT PERFORMED MEQ/L CALCIUM (test code = 2209) TEST NOT PERFORMED MG/DL PROTEIN, TOTAL (test code = 2229) TEST NOT PERFORMED G/DL ALBUMIN (test code = 2201) TEST NOT PERFORMED G/DL CALC GLOBULIN (test code = 2240) TEST NOT PERFORMED G/DL CALC A/G RATIO (test code = 2234) TEST NOT PERFORMED RATIO BILIRUBIN, TOTAL (test code = 2207) TEST NOT PERFORMED MG/DL ALKALINE PHOSPHATASE (test code = 2204) TEST NOT PERFORMED U/L AST (test code = 2218) TEST NOT PERFORME D U/L ALT (test code = 2219) TEST NOT PERFORME D U/L [facility] [place] AustinCOMPREHENSIVE METABOLIC [id number] 00:00:00* Test Item Value Reference Range Interpretation Comme nts GLUCOSE (test code = 2217) TEST NOT PERFORMED MG/DL BUN (test code = 2208) TEST NOT PERFORME D MG/DL CREATININE (test code = 2214) TEST NOT PERFORMED MG/DL eGFR AMER. (test code = 77263) TEST NOT PERFORMED ML/MIN/1.73 eGFR NON- AMER. (test code = 77055) TEST NOT PERFORMED ML/MIN/1.73 CALC BUN/CREAT (test code = 2235) TEST NOT PERFORMED RATIO SODIUM (test code = 2231) TEST NOT PERFORMED MEQ/L POTASSIUM (test code = 2228) TEST NOT PERFORMED MEQ/L CHLORIDE (test code = 2215) TEST NOT PERFORMED MEQ/L CARBON DIOXIDE (test code = 2206) TEST NOT PERFORMED MEQ/L CALCIUM (test code = 2209) TEST NOT PERFORMED MG/DL PROTEIN, TOTAL (test code = 2229) TEST NOT PERFORMED G/DL ALBUMIN (test code = 2201) TEST NOT PERFORMED G/DL CALC GLOBULIN (test code = 2240) TEST NOT PERFORMED G/DL CALC A/G RATIO (test code = 2234) TEST NOT PERFORMED RATIO BILIRUBIN, TOTAL (test code = 2207) TEST NOT PERFORMED MG/DL ALKALINE PHOSPHATASE (test code = 2204) TEST NOT PERFORMED U/L AST (test code = 2218) TEST NOT PERFORME D U/L ALT (test code = 2219) TEST NOT PERFORME D U/L [place] AustinHEMOGLOBIN [id number] 00:00:00* Test Item Value Reference Range Interpretation Comme nts HEMOGLOBIN A1c (test code = 45598) 10.8 % Han [place] AustinHEMOGLOBIN [id number] 00:00:00* Test Item Value Reference Range Interpretation Comme nts HEMOGLOBIN A1c (test code = 31711) 10.8 % Han [place] AustinHEMOGLOBIN [id number] 00:00:00* Test Item Value Reference Range Interpretation Comme nts HEMOGLOBIN A1c (test code = 40633) 10.3 % Han San [id number] 00:00:00* Test Item Value Reference Range Interpretation Comme nts TSH (test code = 2821) 2.4 UIU/ML Han [place] AlderCOMPREHENSIVE METABOLIC [id number] 00:00:00* Test Item Value Reference Range Interpretation Comme nts GLUCOSE (test code = 2217) 336 MG/DL BUN (test code = 2208) 13 MG/DL CREATININE (test code = 2214) 0.76 MG/DL eGFR AMER. (test cod e = 96773) 153 ML/MIN/1.73 eGFR NON- AMER. (test code = 25261) 132 ML/MIN/1.73 CALC BUN/CREAT (test code = 2235) 17 RATIO SODIUM (test code = 2231) 136 MEQ/L POTASSIUM (test code = 2228) 4.8 MEQ/L CHLORIDE (test code = 2215) 96 MEQ/L CARBON DIOXIDE (test code = 2206) 29 MEQ/L CALCIUM (test code = 2209) 9.7 MG/DL PROTEIN, TOTAL (test code = 2229) 7.2 G/DL ALBUMIN (test code = 2201) 4.3 G/DL CALC GLOBULIN (test code = 2240) 2.9 G/DL CALC A/G RATIO (test code = 2234) 1.5 RATIO BILIRUBIN, TOTAL (test code = 2207) 0.4 MG/DL ALKALINE PHOSPHATASE (test code = 2204) 79 U/L AST (test code = 2218) 18 U/L ALT (test code = 2219) 24 U/L Han MayerLIPID [id number] 00:00:00* Test Item Value Reference Range Interpretation Comme nts CHOLESTEROL (test code = 2210) 128 MG/DL TRIGLYCERIDES (test code = 2232) 46 MG/DL HDL CHOLESTEROL (test code = 2220) 44 MG/DL CALC LDL CHOL (test code = 2237) 75 MG/DL RISK RATIO LDL/HDL (test cod e = 2238) 1.70 RATIO Han MayerCBC W/AUTO [id number] 00:00:00* Test Item Value Reference Range Interpretation Comme nts WBC (test code = 1001) 5.7 K/UL RBC (test code = 1002) 5.79 M/UL HEMOGLOBIN (test code = 1003) 16.0 G/DL HEMATOCRIT (test code = 1004) 47.3 % MCV (test code = 1005) 81.7 fL MCH (test code = 1006) 27.6 PG MCHC (test code = 1007) 33.8 G/DL RDW (test code = 1038) 12.1 % NEUTROPHILS (test code = 1008) 53.3 % LYMPHOCYTES (test code = 1010) 37.8 % MONOCYTES (test code = 1011) 5.1 % EOSINOPHILS (test code = 1012) 3.3 % BASOPHILS (test code = 1013) 0.5 % PLATELET COUNT (test code = 1015) 159 K/UL Han MayerHEMOGLOBIN [id number] 00:00:00* Test Item Value Reference Range Interpretation Comme nts HEMOGLOBIN A1c (test code = 35214) 10.3 % Han [id number] 00:00:00* Test Item Value Reference Range Interpretation Comme nts TSH (test code = 2821) 2.4 UIU/ML Han MayerCOMPREHENSIVE METABOLIC [id number] 00:00:00* Test Item Value Reference Range Interpretation Comme nts GLUCOSE (test code = 2217) 336 MG/DL BUN (test code = 2208) 13 MG/DL CREATININE (test code = 2214) 0.76 MG/DL eGFR AMER. (test cod e = 85294) 153 ML/MIN/1.73 eGFR NON- AMER. (test code = 21355) 132 ML/MIN/1.73 CALC BUN/CREAT (test code = 2235) 17 RATIO SODIUM (test code = 2231) 136 MEQ/L POTASSIUM (test code = 2228) 4.8 MEQ/L CHLORIDE (test code = 2215) 96 MEQ/L CARBON DIOXIDE (test code = 2206) 29 MEQ/L CALCIUM (test code = 2209) 9.7 MG/DL PROTEIN, TOTAL (test code = 2229) 7.2 G/DL ALBUMIN (test code = 2201) 4.3 G/DL CALC GLOBULIN (test code = 2240) 2.9 G/DL CALC A/G RATIO (test code = 2234) 1.5 RATIO BILIRUBIN, TOTAL (test code = 2207) 0.4 MG/DL ALKALINE PHOSPHATASE (test code = 2204) 79 U/L AST (test code = 2218) 18 U/L ALT (test code = 2219) 24 U/L Han MayerLIPID [id number] 00:00:00* Test Item Value Reference Range Interpretation Comme nts CHOLESTEROL (test code = 2210) 128 MG/DL TRIGLYCERIDES (test code = 2232) 46 MG/DL HDL CHOLESTEROL (test code = 2220) 44 MG/DL CALC LDL CHOL (test code = 2237) 75 MG/DL RISK RATIO LDL/HDL (test cod e = 2238) 1.70 RATIO Han MayerCBC W/AUTO [id number] 00:00:00* Test Item Value Reference Range Interpretation Comme nts WBC (test code = 1001) 5.7 K/UL RBC (test code = 1002) 5.79 M/UL HEMOGLOBIN (test code = 1003) 16.0 G/DL HEMATOCRIT (test code = 1004) 47.3 % MCV (test code = 1005) 81.7 fL MCH (test code = 1006) 27.6 PG MCHC (test code = 1007) 33.8 G/DL RDW (test code = 1038) 12.1 % NEUTROPHILS (test code = 1008) 53.3 % LYMPHOCYTES (test code = 1010) 37.8 % MONOCYTES (test code = 1011) 5.1 % EOSINOPHILS (test code = 1012) 3.3 % BASOPHILS (test code = 1013) 0.5 % PLATELET COUNT (test code = 1015) 159 K/UL [place] Notes Date/Time Note Provider Source Han Mayer [facility]2024-04-24 00:00:00 Plan Activity Appears noncompliance TOUJEO 50U QD - AND INCREASE 2 U EVERYDAY UNTIL MORNING FASTING IS 120- WROTE IT DOWN Pt.'s mother reports pt. takes Novolog and Toujeo. continue TO GET CONTROL OF GLUCOSE - DISCUSSED JOB FOR AUTISTIC ADULTS plan the medication reassessment after lab results Monitor BG closely. ADA diet, daily exercise Follow up in the clinic in 7 days after the lab results Appended: 2016-01-31 Continue levemier 48 units in the morning Monitor BG closely. 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 Reports compliance with prescribed medications. Increase Toujeo to 40 units nightly Increase Novolog to 8 untis TID with meals Rx glucose 4 gram chewable tablet Take 3 tablet by mouth for blood sugars less than 70. Wait 15 minutes and check blood sugar. Repeat 3 tabs by mouth q15 minutes until glucose is greater than 70 Rx Glucagon (HCl) Emergency Kit 1 mg solution for injection Inject 1 mL below the skin following kit directions for severe hypoglycemia with loss of consciousness or ability to swallow. ADA dietary recommendations discussed and recommended. Discussed importance of glucose monitoring and control. Check fasting and 2hr PP glucose daily. Recommend fasting glucose goal of 80-130 and 2hr PP goals of less than 180. Endocrinology referral. Stressed importance of pt establishing care with public policy coordinator d/t type 1 DM. RTO in 1- 2 week with BG log RTO 3 months for repeat labs. 2020-05-17 A1C,CBC,CMP,Lipid, urine girish ro continue Toujeo 34 units , Lyumjev 8 units TID follow up with endorcrionology as planned 2020-08-31 Recommend at least 30-60 min of exercise 5x/week 2020-08-31 Recommend healthy eating wit h foods from a variety of food groups, appropriate portion sizes, and few sugary snacks/drinks. 2020-08-31 normal BMI Continue eating a well balanced diet and have physical activity at least 30 min a day 2020-08-31 Reviewed notes from [facility] 2 normal BMI 2020-11-07 normal BMI 2021-03-21 continue on meds Make apt with Psychiatrist from there 2021-03-21 diet and exercise 2021-06-22 Lipid panel results pending 2023-09-28 ADA dietary recommendations discussed and recommended. Discussed importance of glucose monitoring and control. Recommend fasting glucose goal of 80-130 and 2hr PP goals of less than 180. 2023-09-28 Start simvastatin 40mg night ly Low cholesterol diet Glucose control RTO 3 months for f/u 2023-10-02 WORK ON IT - GETTING REFERRA Connell FOR WORK PROGRAM STARTED BUT DOING NOTHING UNTIL HE GETS HIS SUGARS DOWN 2023-10-09 Han Mayer [facility]
[2024-01-22 11:33] LABS: Hemoglobin 15.6 g/dL (13.6-17.9); MCH 27.7 pg (27.0-35.0); MCHC 33.3 g/dL (32.0-36.0); MCV 83.2 fL (80-100); MPV 9.9 fL (7.6-11.3); Platelets 123 thou/uL (152-406); RBC Red Blood Cell Count 5.65 M/uL (4.33-5.43); Red Cell Distribution Width 13.1 % (12.1-15.2)
[2024-01-22] MEDS ORDERED: INSULIN GLARGINE 100 UNIT/ML SQ ONE (11:33)
[2024-01-22] MEDS ORDERED: INSULIN REGULAR (HUMAN) 100 UNIT/ML ONE (11:34)
[2024-01-22] MEDS ORDERED: NA CHLORIDE 0.9% 2,000 ML ONE (11:35)
[2024-01-22 11:52] LABS: Albumin 3.8 g/dL (3.4-5.0); Albumin/Globulin Ratio 1.2 (1.1-1.8); Anion Gap 18.2 mEq/L (5.0-15.0); Bilirubin Total 1.2 mg/dL (0.2-1.0); Globulin 3.3 g/dL (2.3-3.5); Potassium 4.2 mEq/L (3.5-5.1); Protein, Total 7.1 g/dL (6.4-8.2); Troponin High Sensitivity 7.7 pg/mL (<58.9)
[2024-01-22 11:59] LABS: SARS-CoV-2 Antigen CONTROL BLUE LINE VIS/BG OK; SARS-CoV-2 Antigen Rapid Res Negative (Negative)
--- NOTE | 2024-01-22 12:06 | ER ---
Nurse's Notes [facility] Name: Hermelindo Driscoll Age: 28 yrs Sex: Male : 1995 Arrival Date: 01/22/2024 Time: 10:15 Bed 14 Private MD: Diagnosis: Type 1 diabetes mellitus with hyperglycemia-borderline gap;Weakness Presentation: 01/21 10:38 Chief complaint: Patient states: he started having pain all over "just now" and "i am a ap3 diabetic and my sugars have been high for a long time". Coronavirus screen: At this time, the client does not indicate any symptoms associated with coronavirus-19. Ebola Screen: No symptoms or risks identified at this time. Initial Sepsis Screen: Does the patient meet any 2 criteria? No. Patient's initial sepsis screen is negative. Does the patient have a suspected source of infection? No. Patient's initial sepsis screen is negative. Risk Assessment: Do you want to hurt yourself or someone else? Patient reports no desire to harm self or others. Onset of symptoms was January 22, 2024. 10:38 Method Of Arrival: Wheelchair ap3 10:38 Acuity: CHELY 3 ap3 Triage Assessment: 10:39 General: Appears uncomfortable, Behavior is cooperative, restless. Pain: Complains of ap3 pain in "all over". Neuro: Level of Consciousness is awake, alert, obeys commands, Oriented to person, place, time, situation. Cardiovascular: Patient's skin is warm and dry. Respiratory: Airway is patent Respiratory effort is even, unlabored, Respiratory pattern is regular, symmetrical. Historical: - Allergies: 10:39 No Known Allergies; ap3 - Infectious Disease History:: Denies. - Social history:: Smoking status: Patient denies any tobacco usage or history of. Screenin:40 Abuse screen: Denies threats or abuse. Nutritional screening: No deficits noted. ap3 Tuberculosis screening: No symptoms or risk factors identified. 11:21 [facility] ED Fall Risk Assessment (Adult) History of falling in the last 3 months, ph including since admission No falls in past 3 months (0 pts) Confusion or Disorientation No (0 pts) Intoxicated or Sedated No (0 pts) Impaired Gait No (0 pts) Mobility Assist Device Used No (0 pt) Altered Elimination Score/Fall Risk Level 0 - 2 = Low Risk Oriented to surroundings, Maintained a safe environment, Hourly rounding (assess needs \\T\\ fall precautionary measures) done. Assessment: 11:20 General: Appears in no apparent distress. Behavior is calm, cooperative. Pain: ph Complains of pain in "all over". Neuro: Level of Consciousness is awake, alert, obeys commands, Oriented to person, place, time, situation. Cardiovascular: Capillary refill < 3 seconds in bilateral fingers Patient's skin is warm and dry. Respiratory: Denies shortness of breath. GI: No signs and/or symptoms were reported involving the gastrointestinal system. Patient currently denies nausea, vomiting. Derm: Skin is pink, warm \\T\\ dry. Vital Signs: 10:38 BP 125 / 73; Pulse 80; Resp 17; Temp 98.3; Pulse Ox 100% ; Weight 81.65 kg; ap3 12:00 BP 118 / 72; Pulse 71; Resp 18; Pulse Ox 99% on R/A; ph 13:00 BP 108 / 66; Pulse 74; Resp 16; Pulse Ox 99% on R/A; ph 14:00 BP 110 / 60; Pulse 79; Resp 16; Pulse Ox 100% on R/A; ph 14:56 BP 105 / 61; Pulse 66; Resp 18; Pulse Ox 100% on R/A; ph ED Course: 10:16 Patient arrived in ED. im 10:20 Pankaj Salazar MD is Attending Physician. phillip 10:39 Triage completed. ap3 10:40 Arm band placed on right wrist. ap3 10:56 eVro Bowles, RN is Primary Nurse. ph 11:17 Initial lab(s) drawn, by me, sent to lab. COVID swab sent to lab. Flu and/or RSV swab ph sent to lab. Strep swab sent to lab. Inserted saline lock: 20 gauge in right antecubital area, using aseptic technique. Blood collected. Flushed with 10 mL NS. 11:20 Patient has correct armband on for positive identification. Bed in low position. Call ph light in reach. Side rails up X 1. Pulse ox on. NIBP on. Door closed. Noise minimized. 11:20 Troponin HS Sent. ph 11:20 Comprehensive Metabolic Panel Sent. ph 11:20 CBC w/o diff Sent. ph 11:20 Strep Sent. ph 11:20 SARS RAPID Sent. ph 11:20 Flu Sent. ph 12:05 Kaitlin Robin MD is Hospitalizing Provider. phillip 12:30 No provider procedures requiring assistance completed. Patient admitted, IV remains in ph place. 13:51 EKG done, by ED staff, reviewed by Pankaj Salazar MD. ph Administered Medications: 11:48 Drug: NS 0.9% IV 1000 ml IV at 1 bolus Per protocol; 1000 mL bolus Route: IV; Rate: 1 ph bolus; Site: right antecubital; 14:00 Follow up: Response: No adverse reaction; IV Status: Completed infusion; IV Intake: ph 1000ml 11:49 Drug: Insulin Regular Human IVP 10 units IVP once {Co-Signature: [email or web address] (Jeanette Petit RN).} ph Route: IVP; Site: right antecubital; 13:00 Follow up: Response: No adverse reaction; Blood sugar is lowered ph 11:49 Drug: Insulin Regular Human Sub-Q 10 units Sub-Q once {Co-Signature: [email or web address] (Jeanette Petit ph RN).} Route: Sub-Q; Site: right upper arm; 13:00 Follow up: Response: No adverse reaction; Blood sugar is lowered ph 11:50 Drug: Insulin Glargine Sub-Q 30 units Sub-Q once {Co-Signature: [email or web address] (Jeanette Petit RN).} ph Route: Sub-Q; Site: right upper arm; 13:00 Follow up: Response: No adverse reaction; Blood sugar is lowered ph 14:19 Not Given (Other Intervention Used): ns 0.9% 1000 ml IV at 1 bolus Per protocol; 1000 ph mL bolus 14:19 Drug: NS 0.9% IV 1000 ml IV at 125 ml/hr continuous Route: IV; Rate: 125 ml/hr; Site: right antecubital; 14:30 Follow up: Response: No adverse reaction; IV Status: Infusion continued upon admission ph Medication: 11:21 VIS not applicable for this client. ph Point of Care Testing: Blood Glucose: 10:40 Blood Glucose: 466 mg/dL; ap3 Ranges: Intake: 14:00 IV: 1000ml; Total: 1000ml. ph Outcome: 12:06 Decision to Hospitalize by Provider. phillip 16:00 Patient left the ED. ph 16:00 Admitted to Med/surg ph 16:00 Condition: stable 16:00 Instructed on the need for admit, Signatures: Pankaj Salazar MD MD cha Hall, Patricia RN RN Aliya Pemberton RN RN ap3 Kisha Zayas Norma RN nj1 Corrections: (The following items were deleted from the chart) 13:01 10:39 PMHx: Diabetes - IDDM; daren3 nj1
--- NOTE | 2024-01-22 12:07 | EDPHYS ---
Physician Documentation [facility] Name: Hermelindo Driscoll Age: 28 yrs Sex: Male : 1995 Arrival Date: 01/22/2024 Time: 10:15 Bed 14 Private MD: RITA Physician Pankaj Salazar HPI: 01/21 10:51 This 28 yrs old Male presents to ER via Wheelchair with complaints of Pain All phillip Over. 10:51 pain all over , dm uncontrolled. Onset: The symptoms/episode began/occurred 2 day(s) phillip ago. Severity of symptoms: At their worst the symptoms were moderate in the emergency department the symptoms are unchanged. The patient has experienced similar episodes in the past, multiple times. Historical: - Allergies: 10:39 No Known Allergies; ap3 - Infectious Disease History:: Denies. - Social history:: Smoking status: Patient denies any tobacco usage or history of. ROS: 10:51 Constitutional: Negative for fever, chills, and weight loss, Eyes: Negative for injury, phillip pain, redness, and discharge, ENT: Negative for injury, pain, and discharge, Neck: Negative for injury, pain, and swelling, Cardiovascular: Negative for chest pain, palpitations, and edema, Respiratory: Negative for shortness of breath, cough, wheezing, and pleuritic chest pain, Abdomen/GI: Negative for abdominal pain, nausea, vomiting, diarrhea, and constipation, Back: Negative for injury and pain, : Negative for injury, bleeding, discharge, and swelling, MS/Extremity: Negative for injury and deformity, Skin: Negative for injury, rash, and discoloration, Psych: Negative for depression, anxiety, suicide ideation, homicidal ideation, and hallucinations, Allergy/Immunology: Negative for hives, rash, and allergies, Endocrine: Negative for neck swelling, polydipsia, polyuria, polyphagia, and marked weight changes, Hematologic/Lymphatic: Negative for swollen nodes, abnormal bleeding, and unusual bruising, 10:51 Neuro: Positive for weakness, Exam: 10:51 Constitutional: This is a well developed, well nourished patient who is awake, alert, phillip and in no acute distress. Head/Face: Normocephalic, atraumatic. Eyes: Pupils equal round and reactive to light, extra-ocular motions intact. Lids and lashes normal. Conjunctiva and sclera are non-icteric and not injected. Cornea within normal limits. Periorbital areas with no swelling, redness, or edema. ENT: Nares patent. No nasal discharge, no septal abnormalities noted. Tympanic membranes are normal and external auditory canals are clear. Oropharynx with no redness, swelling, or masses, exudates, or evidence of obstruction, uvula midline. Mucous membranes moist. Neck: Trachea midline, no thyromegaly or masses palpated, and no cervical lymphadenopathy. Supple, full range of motion without nuchal rigidity, or vertebral point tenderness. No Meningismus. Chest/axilla: Normal chest wall appearance and motion. Nontender with no deformity. No lesions are appreciated. Cardiovascular: Regular rate and rhythm with a normal S1 and S2. No gallops, murmurs, or rubs. Normal PMI, no JVD. No pulse deficits. Respiratory: Lungs have equal breath sounds bilaterally, clear to auscultation and percussion. No rales, rhonchi or wheezes noted. No increased work of breathing, no retractions or nasal flaring. Abdomen/GI: Soft, non-tender, with normal bowel sounds. No distension or tympany. No guarding or rebound. No evidence of tenderness throughout. Back: No spinal tenderness. No costovertebral tenderness. Full range of motion. Male : Normal genitalia with no discharge or lesions. Skin: Warm, dry with normal turgor. Normal color with no rashes, no lesions, and no evidence of cellulitis. MS/ Extremity: Pulses equal, no cyanosis. Neurovascular intact. Full, normal range of motion. Neuro: Awake and alert, GCS 15, oriented to person, place, time, and situation. Cranial nerves II-XII grossly intact. Motor strength 5/5 in all extremities. Sensory grossly intact. Cerebellar exam normal. Normal gait. Psych: Awake, alert, with orientation to person, place and time. Behavior, mood, and affect are within normal limits. 10:51 Neuro: Orientation: is normal, appropriate for stated age, no acute changes, Mentation: is normal, appropriate for stated age, no acute changes, Memory: is normal, appropriate for stated age, no acute changes, Cranial nerves: grossly normal, is grossly normal based on the patient's age, no acute changes, Cerebellar function: is grossly normal, is grossly normal based on the patient's age, no acute changes, Gait: not applicable is steady, appropriate for age, seizure activity, is not displayed by the patient, 14:07 ECG was reviewed by the Attending Physician. [facility] Vital Signs: 10:38 BP 125 / 73; Pulse 80; Resp 17; Temp 98.3; Pulse Ox 100% ; Weight 81.65 kg; ap3 12:00 BP 118 / 72; Pulse 71; Resp 18; Pulse Ox 99% on R/A; ph 13:00 BP 108 / 66; Pulse 74; Resp 16; Pulse Ox 99% on R/A; ph 14:00 BP 110 / 60; Pulse 79; Resp 16; Pulse Ox 100% on R/A; ph 14:56 BP 105 / 61; Pulse 66; Resp 18; Pulse Ox 100% on R/A; ph MDM: 10:20 Patient medically screened. [facility] 10:53 Differential Diagnosis altered mental status, sepsis, flu. Data reviewed: vital signs, [facility] nurses notes, lab test result(s), EKG, radiologic studies, plain films. Consideration of Admission/Observation Escalation of care including admission/observation considered. I considered the following discharge prescriptions or medication management in the emergency department Medications were administered in the Emergency Department. See MAR. Independent interpretation of the following test(s) in the Emergency Department EKG: See my EKG interpretation above. Test considered but Not performed: CT: no ct. Historians other than the Patient: pt well informed. Care significantly affected by the following chronic conditions: Diabetes. Counseling: I had a detailed discussion with the patient and/or guardian regarding the historical points, exam findings, and any diagnostic results supporting the discharge/admit diagnosis, lab results, radiology results. 01/21 10:22 Order name: Flu; Complete Time: 12:01 [facility] 01/21 10:22 Order name: SARS RAPID; Complete Time: 12:01 [facility] 01/21 10:22 Order name: Strep [facility] 01/21 10:48 Order name: Glucose, Ancillary Testing; Complete Time: 10:50 EDMS 01/21 10:49 Order name: CBC w/o diff; Complete Time: 12:01 phillip 01/21 10:49 Order name: Comprehensive Metabolic Panel; Complete Time: 12:01 phillip 01/21 10:49 Order name: Troponin HS; Complete Time: 12: [facility] 01/21 10:49 Order name: Urinalysis w/ reflexes [facility] 01/21 12:03 Order name: Throat Culture EDMN 01/21 13:28 Order name: Basic Metabolic Panel [facility] 01/21 13:28 Order name: CBC with Automated Diff EDMN 01/21 13:58 Order name: Glucose, Ancillary Testing; Complete Time: 14:07 EDMN 01/21 10:49 Order name: EKG; Complete Time: 10:50 [facility] 01/21 10:49 Order name: EKG - Nurse/Tech; Complete Time: 13:50 [facility] EC: Rate is 66 beats/min. Rhythm is regular. QRS [place] is Normal. SD interval is normal. QRS phillip interval is normal. QT interval is normal. No Q waves. T waves are Normal. No ST changes noted. Clinical impression: NSR w/ Non-specific ST/T Changes and No evidence of ischemia. Interpreted by me. Reviewed by me. Administered Medications: 11:48 Drug: NS 0.9% IV 1000 ml IV at 1 bolus Per protocol; 1000 mL bolus Route: IV; Rate: 1 ph bolus; Site: right antecubital; 14:00 Follow up: Response: No adverse reaction; IV Status: Completed infusion; IV Intake: ph 1000ml 11:49 Drug: Insulin Regular Human IVP 10 units IVP once {Co-Signature: [email or web address] (Jeanette Petit RN).} ph Route: IVP; Site: right antecubital; 13:00 Follow up: Response: No adverse reaction; Blood sugar is lowered ph 11:49 Drug: Insulin Regular Human Sub-Q 10 units Sub-Q once {Co-Signature: osvaldo (Jeanette Petit ph RN).} Route: Sub-Q; Site: right upper arm; 13:00 Follow up: Response: No adverse reaction; Blood sugar is lowered ph 11:50 Drug: Insulin Glargine Sub-Q 30 units Sub-Q once {Co-Signature: osvaldo (Jeanette Petit RN).} ph Route: Sub-Q; Site: right upper arm; 13:00 Follow up: Response: No adverse reaction; Blood sugar is lowered ph 14:19 Not Given (Other Intervention Used): ns 0.9% 1000 ml IV at 1 bolus Per protocol; 1000 ph mL bolus 14:19 Drug: NS 0.9% IV 1000 ml IV at 125 ml/hr continuous Route: IV; Rate: 125 ml/hr; Site: right antecubital; 14:30 Follow up: Response: No adverse reaction; IV Status: Infusion continued upon admission Point of Care Testing: Blood Glucose: 10:40 Blood Glucose: 466 mg/dL; ap3 Ranges: Critical Glucose Levels:Adult <50 mg/dl or >400 mg/dl <40 mg/dl or >180 mg/dl Disposition Summary: 01/22/24 12:06 Hospitalization Ordered Notes: Hospitalization Status: Observation phillip Provider: Kaitlin Robin cha Location: Telemetry/MedSurg (Inpatient) phillip Condition: Fair phillip Problem: new phillip Symptoms: have improved phillip Bed/Room Type: Standard [facility] Room Assignment: 225(01/22/24 14:42) bd Diagnosis - Type 1 diabetes mellitus with hyperglycemia - borderline gap phillip - Weakness phillip Discharge Instructions: - Discharge Summary Sheet phillip - Hyperglycemia phillip - Weakness phillip - Blood Glucose Monitoring, Adult phillip - Diabetes Mellitus and Nutrition, Adult phillip - Weakness, [id number] [facility] Forms: - Medication Reconciliation Form phillip - SBAR form phillip - Leadership Thank You Letter [facility] Signatures: Dispatcher [employer] EDMS Arely Hutton Corey, MD MD cha Hall, Patricia RN RN Aliya Pemberton RN RN [email or web address] Jeanette Petit RN nj1 Corrections: (The following items were deleted from the chart) 10:50 10:50 CBC without Diff+H.LAB.BRZ ordered. EDMS EDMS 10:50 10:50 COMPREHENSIVE METABOLIC PANEL+C.LAB.BRZ ordered. EDMS EDMS 10:50 10:50 Troponin High Sensitivity+C.LAB.BRZ ordered. EDMS EDMS 10:50 10:50 Urinalysis+U.LAB.BRZ ordered. EDMS EDMS 13:01 10:39 PMHx: Diabetes - IDDM; ap3 nj1 14:42 12:06 [facility]
[2024-01-22] MEDS: NA CHLORIDE 0.9% 1,000 ML IV SCH (14:12)
[2024-01-22] MEDS ORDERED: ACETAMINOPHEN 500 MG TAB PO PRN (14:21)
[2024-01-22] MEDS ORDERED: ALPRAZOLAM 0.25 MG TABLET PO PRN (14:21)
[2024-01-22] MEDS ORDERED: ONDANSETRON 4 MG/2 ML VIAL IV PRN (14:21)
[2024-01-22 16:01] VITALS: BMI 23.1
[2024-01-22] MEDS: INSULIN REGULAR (HUMAN) 100 UNIT/ML SQ SCH (16:30)
[2024-01-22 16:31] VITALS: TEMP 98.3
[2024-01-22 16:36] VITALS: O2SAT 100
[2024-01-22 16:38] VITALS: BP 105/61
[2024-01-22 16:45] LABS: Anion Gap 7.4 mEq/L (5.0-15.0); Potassium 3.4 mEq/L (3.5-5.1)
[2024-01-22] MEDS: ENOXAPARIN 40 MG/0.4 ML SQ SCH (17:14)
[2024-01-22] MEDS ORDERED: POTASSIUM CL SA 10 MEQ TAB PO ONE (18:39)
--- NOTE | 2024-01-23 13:08 | EKG ---
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
--- NOTE | 2024-02-26 00:39 | P.SSS ---
Patient History Date of Service: 01/22/24 Reason for admission: Diabetic ketoacidosis History of Present Illness: Patient is a 28-year-old gentleman came to the hospital with diabetic ketoacidosis. Patient was not taking his medications as prescribed. Patient had abdominal pain as well as nausea and vomiting and patient was admitted to the emergency room for further evaluation. In the ER, patient was started on IV fluids and an insulin drip. Patient will be admitted to the hospital for diabetic ketoacidosis. Allergies No Known Allergies Allergy (Verified 09/05/20 09:45) Home Medications: Insulin Aspart [Novolog Flexpen] 8 units SQ TID 01/22/24 Insulin Glargine,Hum.rec.anlog [Toujeo Solostar] 53 units SQ DAILY 01/22/24 - Past Medical/Surgical History Has patient received pneumonia vaccine in the past: No Diabetic: Yes -: Diabetes mellitus type 1 -: None - Social History Smoking Status: Never smoker Alcohol use: No CD- Drugs: No Caffeine use: No Place of Residence: Home Review of Systems 10-point ROS is otherwise unremarkable Physical Examination - Vital Signs Temperature: 98.3 F Blood Pressure: 105/61 Pulse: 66 Respirations: 18 Pulse Ox (%): 94 - Physical Exam General: Alert, In no apparent distress, Oriented x3 HEENT: Atraumatic, PERRLA, Mucous membr. moist/pink, EOMI, Sclerae nonicteric Neck: Supple, 2+ carotid pulse no bruit, No LAD, Without JVD or thyroid abnormality Respiratory: Clear to auscultation bilaterally, Normal air movement Cardiovascular: Regular rate/rhythm, Normal S1 S2 Gastrointestinal: Normal bowel sounds, No tenderness Musculoskeletal: No tenderness Integumentary: No rashes Neurological: Normal gait, Normal speech, Normal strength at 5/5 x4 extr, Normal tone, Normal affect Lymphatics: No axilla or inguinal lymphadenopathy - Diagnosis (Problem(s)) (1) DKA (diabetic ketoacidoses) Status: Acute Qualifiers: Diabetes mellitus type: type 1 Diabetes mellitus complication detail: without coma Qualified Code(s): E10.10 - Type 1 diabetes mellitus with ketoacidosis without coma Treatment Summary: Patient was treated with IV fluids and insulin drip. Patient's blood sugars were monitored and patient had bicarb levels checked. Patient's anion gap closed. Patient's blood sugars are stable. At this time, patient is clinically doing well and patient will discharge with long-acting insulin. Patient stable for discharge home. - Disposition Disposition: ROUTINE DISCHARGE Condition: GOOD Patient Discharge Instructions: OK TO DC IV AND DC HOME. FOLLOW-UP WITH PRIMARY CARE PROVIDER IN 1-2 WEEKS. RETURN TO THE ER IF symptoms worsen. CALL DR. STOLL AT [phone] IF ANY QUESTIONS REGARDING HOSPITAL STAY. PLEASE CALL THE FLOOR AT [phone] IF ANY MEDICATION OR NURSING QUESTIONS. Diet: ADA Activity: Fall precautions Critical Care: No Time Spent Managing Pts Care (In Minutes): 45
== END 2024-01-22 18:37 | disposition home or self-care (01) ==
LOC: ER 10:15 → ERHOLD 13:03 → INTOOBSV 13:03 → 2ND 15:33
PROVIDERS: ADMIT Hospitalist; ATTEND Hospitalist
DX: E10.10 Type 1 diabetes mellitus with ketoacidosis without coma (principal); E10.65 Type 1 diabetes mellitus with hyperglycemia; R53.1 Weakness; R10.9 Unspecified abdominal pain; R11.2 Nausea with vomiting, unspecified; Z79.4 Long term (current) use of insulin; Z91.148 Patient's other noncompliance with medication regimen for other reason; Z11.52 Encounter for screening for COVID-19
CPT/HCPCS: 36415; 80048; 80053; 82947; 84484; 85027; 87070; 87081; 87804; 87811; 93005; 96361; 96372; 96374; 99285; G0378; J1650; J7030